=== PATIENT | male | born 1995 | race Caucasian/White ===

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

== ENCOUNTER 2018-07-27 16:00 | Inpatient (IN) | payer MEDICAID ==
[2018-07-27] MEDS ORDERED: NORMAL SALINE 1000 ML 1,000 ML IV ONE ×2 (16:26→18:12)
[2018-07-27] MEDS ORDERED: ACETAMINOPHEN 325 MG TABLET PO ONE (16:26)
--- NOTE | 2018-07-27 16:27 | ER Document Report ---
ED Medical Screen (RME) - General Chief Complaint: Painful Cough Stated Complaint: COUGH,CONGESTION Time Seen by Provider: 07/27/18 16:25 Mode of Arrival: Wheelchair Information source: Patient TRAVEL OUTSIDE OF THE [place] IN LAST 30 DAYS: No - HPI Patient complains to provider of: Fever, cough, congestion Notes: 07/27/18 16:26 Patient is a 22-year-old male presenting to the emergency room for 2-week history of cough which is productive of blood, fever, generalized weakness and shortness of breath, he admits to daily IV heroin abuse having used approximately 5 hours prior to coming to the ED, he was also recently incarcerated and was released approximately 14 days ago, states he was sick while he was in group home but recalls no medical treatment during his time there - Related Data Allergies/Adverse Reactions: No Known Allergies Allergy (Verified 07/06/16 18:49) Physical Exam - Vital signs Vitals: Temp Pulse Resp BP Pulse Ox 102.2 F H 147 H 28 H 84/49 L 98 07/27/18 16:19 07/27/18 16:19 07/27/18 16:19 07/27/18 16:19 07/27/18 16:19 Course - Vital Signs Vital signs: Temp Pulse Resp BP Pulse Ox 102.2 F H 147 H 28 H 84/49 L 98 07/27/18 16:19 07/27/18 16:19 07/27/18 16:19 07/27/18 16:19 07/27/18 16:19
[2018-07-27 16:48] LABS: VENOUS BLOOD BASE EXCESS 3.9 mmol/L; VENOUS BLOOD HCO3 28.7 mmol/L (20-32); VENOUS BLOOD PCO2 44.3 mmHg (35-63); VENOUS BLOOD PH 7.43 (7.30-7.42)
[2018-07-27 16:49] LABS: ABSOLUTE BASOPHILS # (AUTO) 0.1 10^3/uL (0.0-0.2); ABSOLUTE LYMPHOCYTES (AUTO) 1.1 10^3/uL (0.5-4.7); ABSOLUTE MONOCYTES (AUTO) 0.8 10^3/uL (0.1-1.4); ABSOLUTE NEUT (AUTO) 13.9 10^3/uL (1.7-8.2); BASOPHILS % (AUTO) 0.5 % (0-2); EOSINOPHILS % (AUTO) 0.3 % (0-6); HEMATOCRIT 37.1 % (37.9-51.0); HEMOGLOBIN 12.8 g/dL (13.5-17.0); LYMPHOCYTES % (AUTO) 6.8 % (13-45); MEAN CORPUSCULAR HEMOGLOBIN 29.6 pg (27.0-33.4); MEAN CORPUSCULAR HGB CONC 34.5 g/dL (32.0-36.0); MEAN CORPUSCULAR VOLUME 86 fl (80-97); MONOCYTES % (AUTO) 5.2 % (3-13); PLATELET COUNT 168 10^3/uL (150-450); RED BLOOD COUNT 4.33 10^6/uL (4.35-5.55); RED CELL DISTRIBUTION WIDTH 15.8 % (11.5-14.0); SEGMENTED NEUTROPHILS % (AUTO) 87.2 % (42-78); TOTAL CELLS COUNTED % (AUTO) 100 %; WHITE BLOOD COUNT 15.9 10^3/uL (4.0-10.5)
[2018-07-27 17:00] LABS: INTERNATIONAL RATION (INR) 1.07; PROTHROMBIN TIME 14.5 SEC (11.4-15.4)
[2018-07-27 17:10] LABS: ALANINE AMINOTRANSFERASE 15 U/L (21-72); ALBUMIN 3.2 g/dL (3.5-5.0); ALKALINE PHOSPHATASE 114 U/L (38-126); ANION GAP 16 (5-19); ASPARTATE AMINO TRANSFERASE 32 U/L (17-59); BILIRUBIN,DIRECT 0.5 mg/dL (0.0-0.4); BILIRUBIN,TOTAL 0.7 mg/dL (0.2-1.3); BLOOD UREA NITROGEN 57 mg/dL (7-20); CALCIUM 8.3 mg/dL (8.4-10.2); CARBON DIOXIDE 29 mmol/L (22-30); CHLORIDE 86 mmol/L (98-107); GLUCOSE 134 mg/dL (75-110); POTASSIUM 3.9 mmol/L (3.6-5.0); SODIUM 131.1 mmol/L (137-145); TOTAL PROTEIN 6.8 g/dL (6.3-8.2)
--- NOTE | 2018-07-27 17:31 | ER Document Report ---
ED Respiratory Problem - General Chief Complaint: Painful Cough Stated Complaint: COUGH,CONGESTION Time Seen by Provider: 07/27/18 16:25 Mode of Arrival: Wheelchair Notes: This is a 22-year-old male to the emergency department chief complaint of shortness of breath cough chest pain. Patient reportedly incarcerated recently for approximately 11 days. IV drug abuser. Most recent injection was approximately 7 hours ago with heroin. Complaining of shortness of breath and chest pain. No recent trauma. Increasing cough today. TRAVEL OUTSIDE OF THE [place] IN LAST 30 DAYS: No - HPI Patient complains to provider of: Chest pain, Cough, Short of breath Onset: Last week Duration: Continuous, Worse/persistent Severity: Severe Pain Level: 4 Context: Smoker Short of Breath: Moderate Chest pain/discomfort: Center, Constant Cough: Nonproductive Associated symptoms: Fever - Related Data Allergies/Adverse Reactions: No Known Allergies Allergy (Verified 07/06/16 18:49) Past Medical History - General Information source: Patient - Social History Smoking Status: Unknown if Ever Smoked Chew tobacco use (# tins/day): No Frequency of alcohol use: None Drug Abuse: None Family History: None Patient has suicidal ideation: No Patient has homicidal ideation: No Renal/ Medical History: Denies: Hx Peritoneal Dialysis Review of Systems - Review of Systems Constitutional: Fever. denies: Malaise, Weakness EENT: denies: Ear pain, Throat pain, Difficulty swallowing Cardiovascular: Chest pain, Palpitations, Heart racing Respiratory: Cough, Short of breath, Wheezing Gastrointestinal: denies: Abdominal pain, Nausea, Vomiting Genitourinary: denies: Flank pain, Hematuria, Incontinence Musculoskeletal: denies: Back pain, Joint pain, Muscle pain Skin: denies: Dryness, Lesions, Rash Hematologic/Lymphatic: denies: Blood clots, Easy bleeding, Easy bruising Neurological/Psychological: denies: Confusion, Weakness, Numbness Physical Exam - Vital signs Vitals: Temp Pulse Resp BP Pulse Ox 102.2 F H 147 H 28 H 84/49 L 98 07/27/18 16:19 07/27/18 16:19 07/27/18 16:19 07/27/18 16:19 07/27/18 16:19 Interpretation: Hypotensive, Tachycardic, Tachypneic, Febrile - General General appearance: Alert. No: Appears well - Ill-appearing In distress: Moderate - HEENT Head: Normocephalic, Atraumatic Eyes: Normal Pupils: PERRL - Respiratory Respiratory status: Tachypnea Chest status: Nontender Breath sounds: Wheezing Chest palpation: Normal - Cardiovascular Rhythm: Tachycardia Heart sounds: Normal auscultation Murmur: No - Abdominal Inspection: Normal Distension: No distension Bowel sounds: Normal Tenderness: Nontender Organomegaly: No organomegaly - Back Back: Normal, Nontender - Extremities General upper extremity: Normal inspection, Nontender, Normal color, Normal ROM, Normal temperature General lower extremity: Normal inspection, Nontender, Normal color, Normal ROM, Normal temperature, Normal weight bearing. No: Radha's sign - Neurological Neuro grossly intact: Yes Cognition: Normal Orientation: AAOx4 Bashir Coma Scale Eye Opening: Spontaneous Bashir Coma Scale Verbal: Oriented [place] Coma Scale Motor: Obeys Commands Holdrege Coma Scale Total: 15 Speech: Normal Motor strength normal: LUE, RUE, LLE, RLE Sensory: Normal - Psychological Associated symptoms: Normal affect, Normal mood - Skin Skin Temperature: Warm Skin Moisture: Dry Skin Color: Normal Course - Re-evaluation Re-evalutation: 07/27/18 17:48 Relatively ill-appearing 22-year-old male, history of substance abuse and IV drug abuse. Tachycardic, hypotensive and tachypneic. Will start him on breathing treatments, oxygen. Will treat empirically for possible pneumonia. W aiting on chest x-ray at this time. Cultures taken. Lactic taken. - Vital Signs Vital signs: Temp Pulse Resp BP Pulse Ox 98.8 F 147 H 26 H 87/42 L 98 07/27/18 18:54 07/27/18 16:19 07/27/18 19:30 07/27/18 19:30 07/27/18 19:30 - Laboratory Result Diagrams: 07/27/18 16:35 07/27/18 16:35 Laboratory results interpreted by me: 07/27/18 07/27/18 07/27/18 16:35 16:35 16:35 WBC 15.9 H RBC 4.33 L Hgb 12.8 L Hct 37.1 L RDW 15.8 H Seg Neutrophils % 87.2 H Lymphocytes % 6.8 L Absolute Neutrophils 13.9 H VBG pH Sodium 131.1 L Chloride 86 L BUN 57 H Creatinine 2.71 H Est GFR ( Amer) 36 L Est GFR (Non-Af Amer) 30 L Glucose 134 H Lactic Acid 2.4 H Calcium 8.3 L Direct Bilirubin 0.5 H ALT 15 L Albumin 3.2 L Urine Protein Urine Blood Urine Urobilinogen Ur Leukocyte Esterase 07/27/18 07/27/18 16:35 17:55 WBC RBC Hgb Hct RDW Seg Neutrophils % Lymphocytes % Absolute Neutrophils VBG pH 7.43 H Sodium Chloride BUN Creatinine Est GFR ( Amer) Est GFR (Non-Af Amer) Glucose Lactic Acid Calcium Direct Bilirubin ALT Albumin Urine Protein 30 H Urine Blood MODERATE H Urine Urobilinogen 4.0 H Ur Leukocyte Esterase TRACE H - EKG Interpretation by In EKG shows normal: [place], Intervals, QRS Complexes, ST-T Waves Rate: Tachycardia Procedures - Central Line Right Internal jugular Consent obtained: Yes Central line pre-insertion: Sterile PPE donned, Betadine prep applied, Chloraprep applied, Sterile drapes applied Central line lumen type: Triple Anesthetic type: 1% Lidocaine mL's of anesthesia: 1 Ultrasound guided: Yes Line secured with sutures: Yes Central line post-insertion: Blood return from lumens, Biopatch applied, Sutured, Sterile dressing applied, Position confirmed w/ CXR Number of attempts: 1 Complications: No Critical Care Note - Critical Care Note Total time excluding time spent on procedures (mins): 60 Comments: Hypotension, sepsis, tachycardia Discharge - Discharge Clinical Impression: Sepsis Qualifiers: Sepsis type: sepsis due to unspecified organism Qualified Code(s): A41.9 - Sepsis, unspecified organism Pneumonia Qualifiers: Pneumonia type: due to unspecified organism Laterality: bilateral Lung location: unspecified part of lung Qualified Code(s): J18.9 - Pneumonia, unspecified organism Condition: Fair Disposition: ADMITTED INPATIENT Admitting Provider: Hospitalist [facility] Unit Admitted: ICU
[2018-07-27] MEDS ORDERED: CEFTRIAXONE INJ 1000 MG VIAL IV ONE (17:43)
[2018-07-27] MEDS ORDERED: VANCOMYCIN HCL INJ 1000 MG VIAL IV ONE (17:43)
[2018-07-27] MEDS ORDERED: ALBUTEROL SULFATE 0.083% NEB 2.5 MG/3 ML AMPUL NEB ONE (17:47)
[2018-07-27 18:32] LABS: AMORPHOUS SEDIMENT,URINE TRACE /HPF; APPEARANCE,URINE CLOUDY; BILIRUBIN,URINE NEGATIVE (NEGATIVE); COLOR,URINE AMBER; GLUCOSE, URINE NEGATIVE (NEGATIVE); KETONES,URINE NEGATIVE (NEGATIVE); LEUKOCYTE ESTERASE,URINE TRACE (NEGATIVE); NITRITE,URINE NEGATIVE (NEGATIVE); PROTEIN,URINE 30 mg/dL (NEGATIVE); URINE SPECIFIC GRAVITY 1.018
--- NOTE | 2018-07-27 18:33 | RADIOLOGY REPORT (SQ) ---
EXAM DESCRIPTION: CHEST SINGLE VIEW COMPLETED DATE/TIME: 07/27/2018 5:52 pm REASON FOR STUDY: COUGH COMPARISON: 07/06/2016 EXAM PARAMETERS: NUMBER OF VIEWS: One view. TECHNIQUE: Single frontal radiographic view of the chest acquired. RADIATION DOSE: NA LIMITATIONS: None. FINDINGS: LUNGS AND PLEURA: Extensive pleural and parenchymal opacities on the right with a right la teral effusion. Extensive parenchymal opacities on the left. No pneumothorax. MEDIASTINUM AND HILAR STRUCTURES: No masses. Contour normal. HEART AND VASCULAR STRUCTURES: Heart normal in size. Normal vasculature. BONES: No acute findings. HARDWARE: None in the chest. OTHER: No other significant finding. IMPRESSION: Extensive pneumonia and right pleural effusion. TECHNICAL DOCUMENTATION: JOB ID: [id number] [employer]- All Rights Reserved Reading location - IP/workstation name: [email or web address]
[2018-07-27 18:40] LABS: CREATINE KINASE MB 1.66 ng/mL (<4.55)
[2018-07-27 18:41] LABS: TROPONIN I < 0.012 ng/mL
[2018-07-27] MEDS ORDERED: IPRATROPIUM/ALBUTEROL 0.5-2.5 MG/3 ML AMPUL NEB PRN (19:51)
[2018-07-27] MEDS ORDERED: DEXTROSE 5%-WATER 250 ML with NOREPINEPHRINE BITARTRATE 4 MG IV PRN ×2 (19:57)
[2018-07-27] MEDS ORDERED: VANCOMYCIN HCL 0 MG in DEXTROSE 5%-WATER 250 ML IV NR (20:00)
[2018-07-27] MEDS: IPRATROPIUM/ALBUTEROL 0.5-2.5 MG/3 ML AMPUL NEB SCH (21:00)
--- NOTE | 2018-07-27 21:20 | RADIOLOGY REPORT (SQ) ---
XR CHEST 3 VIEWS HISTORY: Right-sided pleural effusion. COMPARISON: Radiographs from earlier the same day. FINDINGS: There is a new right IJ line with the tip near the cavoatrial junction. No discernible pneumothorax. There is unchanged appearance of bilateral airspace opacities and small right pleural effusion. The heart size is normal. No acute osseous findings are seen. IMPRESSION: 1. New right IJ line with tip near cavoatrial junction. No pneumothorax. 2. Unchanged small right pleural effusion and bilateral airspace opacities.
[2018-07-27] MEDS: CEFEPIME 2 GM/D5W RTU 2 GM/50 ML RTUPB IV SCH (21:36)
[2018-07-27] MEDS: HEPARIN SOD (PORCINE) 5,000 UNIT/ML 1 ML SYRINGE SUBCUT SCH (21:37)
[2018-07-27] MEDS: NORMAL SALINE 1000 ML 1,000 ML IV PRN (21:39)
[2018-07-27 22:26] LABS: URINE BARBITURATES SCREEN NEGATIVE; URINE BENZODIAZEPINES SCREEN NEGATIVE; URINE COCAINE SCREEN NEGATIVE; URINE MARIJUANA (THC) SCREEN NEGATIVE; URINE METHADONE SCREEN NEGATIVE; URINE PHENCYCLIDINE SCREEN NEGATIVE
[2018-07-27] MEDS ORDERED: QUETIAPINE FUMARATE 100 MG TABLET PO ONE (23:59)
[2018-07-28] MEDS: ACETAMINOPHEN 325 MG TABLET PO PRN ×3 (00:10→19:47)
[2018-07-28] MEDS: NORMAL SALINE 1000 ML 1,000 ML IV PRN ×2 (00:30→02:47)
[2018-07-28] MEDS: IPRATROPIUM/ALBUTEROL 0.5-2.5 MG/3 ML AMPUL NEB SCH ×5 (02:14→19:30)
--- NOTE | 2018-07-28 05:58 | PDOC H&P ---
History of Present Illness Admission Date/PCP: 07/27/18 19:39 Patient complains of: Cough History of Present Illness: [place] is a 22 year old male with a past medical history of depression, IV drug abuse with methamphetamine and heroin who presents the emergency room with shortness of breath and cough. He is found to have hypotension, tachypnea, bilateral pneumonia, acute renal failure and hyponatremia. He started on IV saline, empiric antibiotics and referred to the hospitalist for admission. He complains of sharp right-sided chest pain with deep inhalation and coughing which is nonproductive. Patient appears chronically ill and pale, admits his last use 7 hours prior to presentation and has needle tracking without open ulcer or phlebitis on his right arm. Patient is unaware of HIV, hepatitis status. Patient formerly prescribed Seroquel for depression. Past Medical History Cardiac Medical History: Reports: None Pulmonary Medical History: Reports: None EENT Medical History: Reports: None Neurological Medical History: Reports: None Endocrine Medical History: Reports: None Renal/ Medical History: Reports: None Malignancy Medical History: Reports: None GI Medical History: Reports: None Musculoskeltal Medical History: Reports: None Skin Medical History: Reports: None Psychiatric Medical History: Reports: Depression, Substance Abuse Past Surgical History Past Surgical History: Reports: None Social History Information Source: Patient Smoking Status: Never Smoker Frequency of Alcohol Use: None Hx Recreational Drug Use: Yes Drugs: Heroin - Advance Directive Resuscitation Status: Full Code Family History Family History: Hypertension Parental Family History Reviewed: Yes Children Family History Reviewed: Yes Sibling(s) Family History Reviewed.: Yes Medication/Allergy Home Medications: No Home Medications 07/27/18 Allergies/Adverse Reactions: No Known Allergies Allergy (Verified 07/06/16 18:49) Review of Systems Constitutional: PRESENT: as per HPI, fatigue, weakness Eyes: PRESENT: as per HPI Ears: PRESENT: as per HPI Nose, Mouth, and Throat: PRESENT: as per HPI Cardiovascular: PRESENT: as per HPI, chest pain Respiratory: PRESENT: as per HPI, cough, dyspnea. ABSENT: hemoptysis, sputum Gastrointestinal: ABSENT: abdominal pain, constipation, diarrhea, hematemesis, hematochezia, nausea, vomiting Genitourinary: ABSENT: dysuria, hematuria Musculoskeletal: ABSENT: joint swelling Integumentary: ABSENT: rash, wounds Neurological: ABSENT: abnormal gait, abnormal speech, confusion, dizziness, focal weakness, syncope Psychiatric: ABSENT: anxiety, depression, homidical ideation, suicidal ideation Endocrine: ABSENT: cold intolerance, heat intolerance, polydipsia, polyuria Hematologic/Lymphatic: ABSENT: easy bleeding, easy bruising Physical Exam Vital Signs: Temp Pulse Resp BP Pulse Ox 98.0 F 100 36 H 89/45 L 97 07/28/18 00:00 07/28/18 02:15 07/28/18 04:03 07/28/18 04:03 07/28/18 04:03 Intake & Output 07/26/18 07/27/18 07/28/18 11:59 11:59 11:59 Intake Total 3000 Output Total 400 Balance 2600 Weight 50.9 kg General appearance: PRESENT: cooperative, disheveled, severe distress, thin Head exam: PRESENT: atraumatic, normocephalic Eye exam: PRESENT: conjunctiva pink, EOMI, PERRLA. ABSENT: scleral icterus Ear exam: PRESENT: normal external ear exam Mouth exam: PRESENT: moist, tongue midline Neck exam: ABSENT: carotid bruit, JVD, lymphadenopathy, thyromegaly Respiratory exam: PRESENT: accessory muscle use, prolonged expiratory phas, retraction, rhonchi, tachypnea Cardiovascular exam: PRESENT: RRR, systolic murmur, tachycardia. ABSENT: diastolic murmur, rubs Pulses: PRESENT: normal dorsalis pedis pul Vascular exam: PRESENT: normal capillary refill GI/Abdominal exam: PRESENT: normal bowel sounds, soft. ABSENT: distended, guarding, mass, organolmegaly, rebound, tenderness Rectal exam: PRESENT: deferred Extremities exam: PRESENT: full ROM, other - Right upper extremity with extensive track marking without open ulcer erythema or exudate. ABSENT: calf tenderness, clubbing, pedal edema Neurological exam: PRESENT: alert, altered, awake, oriented to person, oriented to place, oriented to time, oriented to situation, CN II-XII grossly intact. ABSENT: motor sensory deficit Psychiatric exam: PRESENT: appropriate affect, normal mood, unusual affect. ABSENT: homicidal ideation, suicidal ideation Skin exam: PRESENT: dry, intact, warm. ABSENT: cyanosis, rash Results Laboratory Results: 07/27/18 16:35 07/27/18 16:35 07/27/18 07/27/18 07/27/18 16:35 16:35 16:35 WBC 15.9 H RBC 4.33 L Hgb 12.8 L Hct 37.1 L MCV 86 MCH 29.6 MCHC 34.5 RDW 15.8 H Plt Count 168 Seg Neutrophils % 87.2 H Lymphocytes % 6.8 L Monocytes % 5.2 Eosinophils % 0.3 Basophils % 0.5 Absolute Neutrophils 13.9 H Absolute Lymphocytes 1.1 Absolute Monocytes 0.8 Absolute Eosinophils 0.0 Absolute Basophils 0.1 VBG pH VBG pCO2 VBG HCO3 VBG Base Excess Sodium 131.1 L Potassium 3.9 Chloride 86 L Carbon Dioxide 29 Anion Gap 16 BUN 57 H Creatinine 2.71 H Est GFR ( Amer) 36 L Est GFR (Non-Af Amer) 30 L Glucose 134 H Lactic Acid 2.4 H Calcium 8.3 L Total Bilirubin 0.7 AST 32 ALT 15 L Alkaline Phosphatase 114 Total Protein 6.8 Albumin 3.2 L Urine Color Urine Appearance Urine pH Ur Specific Dale Urine Protein Urine Glucose (UA) Urine Ketones Urine Blood Urine Nitrite Ur Leukocyte Esterase Urine WBC (Auto) Urine RBC (Auto) 07/27/18 07/27/18 07/27/18 16:35 17:55 21:30 WBC RBC Hgb Hct MCV MCH MCHC RDW Plt Count Seg Neutrophils % Lymphocytes % Monocytes % Eosinophils % Basophils % Absolute Neutrophils Absolute Lymphocytes Absolute Monocytes Absolute Eosinophils Absolute Basophils VBG pH 7.43 H VBG pCO2 44.3 VBG HCO3 28.7 VBG Base Excess 3.9 Sodium Potassium Chloride Carbon Dioxide Anion Gap BUN Creatinine Est GFR ( Amer) Est GFR (Non-Af Amer) Glucose Lactic Acid 0.6 L Calcium Total Bilirubin AST ALT Alkaline Phosphatase Total Protein Albumin Urine Color HARISH Urine Appearance CLOUDY Urine pH 5.0 Ur Specific Dale 1.018 Urine Protein 30 H Urine Glucose (UA) NEGATIVE Urine Ketones NEGATIVE Urine Blood MODERATE H Urine Nitrite NEGATIVE Ur Leukocyte Esterase TRACE H Urine WBC (Auto) 33 Urine RBC (Auto) 22 07/27/18 07/27/18 16:35 16:35 Creatine Kinase 122 CK-MB (CK-2) 1.66 Troponin I < 0.012 Impressions: Apical Lordotic X-Ray 07/27/18 00:00 IMPRESSION: 1. New right IJ line with tip near cavoatrial junction. No pneumothorax. 2. Unchanged small right pleural effusion and bilateral airspace opacities. Chest X-Ray 07/27/18 16:26 IMPRESSION: Extensive pneumonia and right pleural effusion. Assessment & Plan - Diagnosis (1) Pneumonia Qualifiers: Pneumonia type: due to unspecified organism Laterality: bilateral Lung location: unspecified part of lung Qualified Code(s): J18.9 - Pneumonia, unspecified organism Is this a current diagnosis for this admission?: Yes Plan: Complicated by IV drug abuse and concern for septic emboli. Albuterol, Atrovent, incentive spirometry, IV vancomycin and cefepime ordered. Follow-up CBC and blood culture (2) Sepsis Qualifiers: Sepsis type: sepsis due to unspecified organism Qualified Code(s): A41.9 - Sepsis, unspecified organism Is this a current diagnosis for this admission?: Yes Plan: Secondary to #1, IV fluid challenge, pressors as needed, consider Narcan (3) IV drug abuse Is this a current diagnosis for this admission?: Yes Plan: Methamphetamine and heroin use, supportive care, consider methadone (4) Murmur Is this a current diagnosis for this admission?: Yes Plan: Follow-up 2D echo and evaluation of possible endocarditis. - Time Time Spent: 50 to 70 Minutes - Inpatient Certification Medical Necessity: Need Close Monitoring Due to Risk of Patient Decompensation
[2018-07-28] MEDS: HEPARIN SOD (PORCINE) 5,000 UNIT/ML 1 ML SYRINGE SUBCUT SCH ×3 (06:38→21:11)
[2018-07-28 06:56] LABS: ANION GAP 10 (5-19); BLOOD UREA NITROGEN 42 mg/dL (7-20); CARBON DIOXIDE 20 mmol/L (22-30); CHLORIDE 104 mmol/L (98-107); GLUCOSE 123 mg/dL (75-110); POTASSIUM 3.8 mmol/L (3.6-5.0); SODIUM 134.2 mmol/L (137-145)
[2018-07-28 07:10] LABS: ABSOLUTE LYMPHOCYTES (AUTO) 1.7 10^3/uL (0.5-4.7); ABSOLUTE MONOCYTES (AUTO) 0.6 10^3/uL (0.1-1.4); ABSOLUTE NEUT (AUTO) 11.3 10^3/uL (1.7-8.2); BASOPHILS % (AUTO) 0.2 % (0-2); EOSINOPHILS % (AUTO) 0.3 % (0-6); HEMATOCRIT 30.3 % (37.9-51.0); LYMPHOCYTES % (AUTO) 12.4 % (13-45); MEAN CORPUSCULAR HEMOGLOBIN 29.5 pg (27.0-33.4); MEAN CORPUSCULAR VOLUME 87 fl (80-97); MONOCYTES % (AUTO) 4.3 % (3-13); PLATELET COUNT 108 10^3/uL (150-450); RED CELL DISTRIBUTION WIDTH 15.6 % (11.5-14.0); SEGMENTED NEUTROPHILS % (AUTO) 82.8 % (42-78); TOTAL CELLS COUNTED % (AUTO) 100 %; WHITE BLOOD COUNT 13.6 10^3/uL (4.0-10.5)
[2018-07-28 07:11] LABS: CALCIUM 6.9 mg/dL (8.4-10.2)
[2018-07-28 07:13] LABS: HEMOGLOBIN 10.3 g/dL (13.5-17.0)
--- NOTE | 2018-07-28 07:55 | EKG REPORT ---
SEVERITY:- OTHERWISE NORMAL ECG - SINUS TACHYCARDIA BORDERLINE RIGHT AXIS DEVIATION : Confirmed by: Lino Chambers MD 28-Jul-2018 07:54:15
[2018-07-28] MEDS ORDERED: NORMAL SALINE 1000 ML 2,000 ML IV ONE (08:30)
[2018-07-28] MEDS ORDERED: CALCIUM GLUCONATE 1000 MG/10 ML INJ IV ONE (09:00)
[2018-07-28] MEDS: CEFEPIME 2 GM/D5W RTU 2 GM/50 ML RTUPB IV SCH ×2 (09:00→21:12)
[2018-07-28] MEDS ORDERED: ACETAMINOPHEN 325 MG TABLET PO ONE (09:45)
[2018-07-28] MEDS ORDERED: OXYCODONE-ACETAMINOPHEN 5-325 MG TABLET PO PRN (09:48)
[2018-07-28] MEDS: VANCOMYCIN HCL 750 MG in DEXTROSE 5%-WATER 250 ML IV SCH ×2 (10:26→21:33)
[2018-07-28] MEDS: NORMAL SALINE 1000 ML 1,000 ML with POTASSIUM CHLORIDE 20 MEQ, MAGNESIUM SULFATE 8 MEQ,... IV SCH ×5 (17:32)
--- NOTE | 2018-07-28 17:52 | PDOC PROGRESS REPORT ---
Subjective Progress Note for:: 07/28/18 Subjective:: LISS BEACH is a 22 year old male with a past medical history of depression, IV drug abuse with methamphetamine and heroin who presents the emergency room with shortness of breath and cough. He is found to have hypotension, tachypnea, bilateral pneumonia, acute renal failure and hyponatremia. Was started on IV saline, empiric antibiotics and referred to the hospitalist for admission. On admission he complained of sharp right-sided chest pain with deep inhalation and coughing which is nonproductive. Patient appears chronically ill and pale, admits his last use 7 hours prior to presentation and has needle tracking without open ulcer or phlebitis on his right arm. Patient is unaware of HIV, hepatitis status. Patient formerly prescribed Seroquel for depression. Patient is still complaining of shortness of breath, generalized weakness, right-sided pleuritic chest pain. He has been normotensive but tachycardic and tachypneic saturating 100% on room air. Prelim blood cultures positive for gram-positive cocci in clusters, pending sensitivity. Currently he is on vancomycin and cefepime day 2. White blood cells 13.6 down from 15.9, lactic acid 6. Lactic acid 0.6, calcium 6.9. Reason For Visit: SEPSIS, IV DRUGS C PNEUMONIA Physical Exam Vital Signs: Temp Pulse Resp BP Pulse Ox 98.5 F 108 H 25 H 111/79 100 07/28/18 16:00 07/28/18 16:00 07/28/18 16:00 07/28/18 16:00 07/28/18 16:00 Intake & Output 07/27/18 07/28/18 07/29/18 06:59 06:59 06:59 Intake Total 3000 4350 Output Total 800 850 Balance 2200 3500 Weight 50.9 kg General appearance: PRESENT: mild distress Head exam: PRESENT: atraumatic, normocephalic Respiratory exam: PRESENT: clear to auscultation neela. ABSENT: rales, rhonchi, wheezes Cardiovascular exam: PRESENT: RRR, tachycardia. ABSENT: diastolic murmur, rubs, systolic murmur GI/Abdominal exam: PRESENT: normal bowel sounds, soft. ABSENT: distended, gua rding, mass, organolmegaly, rebound, tenderness Neurological exam: PRESENT: alert, awake, oriented to person, oriented to place, oriented to time, oriented to situation, CN II-XII grossly intact. ABSENT: motor sensory deficit Skin exam: PRESENT: dry, intact, warm. ABSENT: cyanosis, rash Results Laboratory Results: 07/28/18 06:33 07/28/18 06:33 07/27/18 07/27/18 07/28/18 17:55 21:30 06:33 WBC RBC Hgb Hct MCV MCH MCHC RDW Plt Count Seg Neutrophils % Lymphocytes % Monocytes % Eosinophils % Basophils % Absolute Neutrophils Absolute Lymphocytes Absolute Monocytes Absolute Eosinophils Absolute Basophils Sodium 134.2 L Potassium 3.8 Chloride 104 Carbon Dioxide 20 L Anion Gap 10 BUN 42 H Creatinine 1.18 Est GFR ( Amer) > 60 Est GFR (Non-Af Amer) > 60 Glucose 123 H Lactic Acid 0.6 L Calcium 6.9 L* Albumin Urine Color HARISH Urine Appearance CLOUDY Urine pH 5.0 Ur Specific Minto 1.018 Urine Protein 30 H Urine Glucose (UA) NEGATIVE Urine Ketones NEGATIVE Urine Blood MODERATE H Urine Nitrite NEGATIVE Ur Leukocyte Esterase TRACE H Urine WBC (Auto) 33 Urine RBC (Auto) 22 07/28/18 07/28/18 06:33 06:33 WBC 13.6 H RBC 3.50 L Hgb 10.3 L D Hct 30.3 L MCV 87 MCH 29.5 MCHC 34.0 RDW 15.6 H Plt Count 108 L Seg Neutrophils % 82.8 H Lymphocytes % 12.4 L Monocytes % 4.3 Eosinophils % 0.3 Basophils % 0.2 Absolute Neutrophils 11.3 H Absolute Lymphocytes 1.7 Absolute Monocytes 0.6 Absolute Eosinophils 0.0 Absolute Basophils 0.0 Sodium Potassium Chloride Carbon Dioxide Anion Gap BUN Creatinine Est GFR ( Amer) Est GFR (Non-Af Amer) Glucose Lactic Acid Calcium Albumin 2.0 L Urine Color Urine Appearance Urine pH Ur Specific Minto Urine Protein Urine Glucose (UA) Urine Ketones Urine Blood Urine Nitrite Ur Leukocyte Esterase Urine WBC (Auto) Urine RBC (Auto) 07/27/18 07/27/18 16:35 16:35 Creatine Kinase 122 CK-MB (CK-2) 1.66 Troponin I < 0.012 Impressions: Apical Lordotic X-Ray 07/27/18 00:00 IMPRESSION: 1. New right IJ line with tip near cavoatrial junction. No pneumothorax. 2. Unchanged small right pleural effusion and bilateral airspace opacities. Chest X-Ray 07/27/18 16:26 IMPRESSION: Extensive pneumonia and right pleural effusion. Assessment & Plan - Diagnosis (1) Sepsis Qualifiers: Sepsis type: sepsis due to unspecified organism Qualified Code(s): A41.9 - Sepsis, unspecified organism Is this a current diagnosis for this admission?: Yes Plan: Likely due to underlying infectious process. Continue empiric IV antibiotics. Continue IV fluids monitor volume status and vitals. (2) Gram-positive bacteremia Is this a current diagnosis for this admission?: Yes Plan: Likely caused by continuous IV drug abuse. Prelim blood cultures 2/2 are growing gram-positive cocci. Continue IV empiric antibiotics. Pending 2D echo to rule out endocarditis. Follow-up blood cultures. (3) Pneumonia Qualifiers: Pneumonia type: due to unspecified organism Laterality: bilateral Lung location: unspecified part of lung Qualified Code(s): J18.9 - Pneumonia, unspecified organism Is this a current diagnosis for this admission?: Yes Plan: Likely complicated by continuous IV drug abuse. Continue IV antibiotics. Follow-up cultures. (4) Hypocalcemia Is this a current diagnosis for this admission?: Yes Plan: Replaced. CMP tomorrow. (5) IV drug abuse Is this a current diagnosis for this admission?: Yes Plan: Supportive measures. Monitor for withdrawals. Will consider starting methadone.
[2018-07-28] MEDS ORDERED: VANCOMYCIN HCL 750 MG in DEXTROSE 5%-WATER 250 ML IV SCH (18:00)
--- NOTE | 2018-07-28 18:04 | Progress Note ---
Provider Note Provider Note: ID Consult Note Asked to review patient's chart by Pharmacy. Pt not seen or examined. Mr Finch is a 22 year old man with IV drug use who was admitted to [facility] today 07/28/18 with a 2 week history of nonproductive cough associated with pleuritic chest pain, fever, SOB and genearlized weakness. In the ED he was appreciated to be tachycardic, hypotensive, tachypneic, and febrile to 102 F. On exam, he was noted to be thin, disheveled, in distress, with accessory muscle use and rhonchi on lung exam, systolic murmur, track mascorro on RUE without open ulcers, erythema or exudates. Labs included WBC 15.9, SCr 2.7, elevated BUN, low chloride, low sodium, elevated lactic acid. Blood cultures show growth of GPCs from two separate sites at two different times. He has a single view CXR that was read as showing pulmonary parenchymal opacities and a right lateral effusion. TTE was ordered. Impression/Recommendations Septic shock, bacteremia with Gram positive cocci, possible endocarditis with septic pulmonary emboli - Pt appears to have a high grade bacteremia, as GPCs are preliminarily reported from both sets of blood cultures, described as being in clusters in one set, which suggests a Staph species. In combination with the fever, systolic murmur, and active IVDU, the presentation is concerning for endocarditis and septic emboli, potentially as the reason for the CXR infiltrate. - Currently, awaiting TTE report - Consider CT scan of chest for better definition of pulmonary lesions; if b/l peripherally distributed nodules this would fit the appearance of septic pulmonary emboli in this setting - Until GPCs are identified, agree, vancomycin empirically - Considering the preliminary nature of blood culture results, continuing cefepime for now is reasonable, but if no GNRs are identified in a day or two, it should be discontinued - Suggest repeating blood cultures in about 48h Jaime Herrera MD [facility] Infectious Diseases pager [phone]
[2018-07-28] MEDS ORDERED: LEVALBUTEROL HCL NEB 1.25 MG/3 ML AMPUL NEB SCH (20:00)
[2018-07-28] MEDS: LEVALBUTEROL HCL NEB 1.25 MG/3 ML AMPUL NEB SCH (20:47)
[2018-07-28] MEDS: QUETIAPINE FUMARATE 100 MG TABLET PO SCH (21:12)
[2018-07-28] MEDS: LORAZEPAM INJ 2 MG/1 ML VIAL IV PRN (21:12)
--- NOTE | 2018-07-28 22:50 | XCELERA REPORT ---
[address] [address] Transthoracic Echocardiogram Report Name: LISS BEACH Age: 22 yrs Gender: Male : 1995 Patient Status: Inpatient Patient Location: ICU^611^A Study Date: 07/28/2018 02:53 PM Height: 61 in Weight: 107 lb BSA: 1.4 m2 Procedure: A two-dimensional transthoracic echocardiogram with color flow and Doppler was performed. Study Quality: Good. Reason For Study: iv drug user w murmur History: IV DRUG ABUSE / MURMUR / ENDOCARDITIS. Ordering Physician: ARTURO NEGRO Performed By: Theresa Rivera Interpretation Summary The left ventricle is normal in size. There is normal left ventricular wall thickness. LV EF is 60% The left ventricular ejection fraction is preserved. Doppler measurements suggest normal left ventricular diastolic function The left ventricular wall motion is normal. There is no thrombus. There is no ventricular septal defect visualized. The right ventricle is normal in size and function. The right atrium is normal. The left atrial size is normal. The interatrial septum is intact with no evidence for an atrial septal defect. There is no Doppler evidence for an interatrial shunt There is no evidence of mitral valve prolapse. There is no vegetation seen on the mitral valve. There is no mitral valve stenosis. There is a trace amount of mitral regurgitation There is no aortic valve stenosis There is no LVOT obstruction. No aortic regurgitation is present. There is a large vegetation or mass on the tricuspid valve. tHE VEGETATION IS MOBILE AND MEASURES 6.1 cm IN CIRCUMFERENCE. There is no tricuspid stenosis. There is a moderate to severe amount of tricuspid regurgitation There is mild pulmonary hypertension by echo RVSP is 43 to 48 mm of Hg , with RA mean of 5 to 10. There is no pulmonic valvular stenosis. There is no pulmonic valvular regurgitation. The aortic root is normal size. The inferior vena cava appeared normal and decreased > 50% with respiration (RAP 5-10 mmHg) There is no pericardial effusion. MMode/2D Measurements & Calculations RVDd: 2.4 cm LVIDd: 4.5 cm FS: 33.5 % Ao root diam: 2.7 cm IVSd: 0.66 cm LVIDs: 3.0 cm EDV(Teich): Ao root area: LVPWd: 0.65 cm 91.3 ml 5.6 cm2 ESV(Teich): LA dimension: 2.7 cm 34.4 ml EF(Teich): 62.4 % LVLd ap4: 8.2 cm SV(MOD-sp4): EDV(MOD-sp4): 47.0 ml 76.0 ml LVLs ap4: 6.6 cm ESV(MOD-sp4): 29.0 ml EF(MOD-sp4): 61.8 % Doppler Measurements & Calculations MV E max inga: MV P1/2t max inga: Ao V2 max: LV V1 max P.9 cm/sec 83.4 cm/sec 121.0 cm/sec 2.4 mmHg MV A max inga: MV P1/2t: 64.3 msec Ao max P.9 mmHg LV V1 max: 66.1 cm/sec MVA(P1/2t): 3.4 cm2 77.0 cm/sec MV E/A: 1.3 MV dec slope: 379.8 cm/sec2 MV dec time: 0.23 sec PA V2 max: TR max inga: MV P1/2t-pr_phl: 95.8 cm/sec 305.4 cm/sec 64.3 msec PA max PG: TR max P.3 mmHg 3.7 mmHg Left Ventricle The left ventricle is normal in size. There is normal left ventricular wall thickness. LV EF is 60%. The left ventricular ejection fraction is preserved. Doppler measurements suggest normal left ventricular diastolic function. The left ventricular wall motion is normal. There is no thrombus. There is no ventricular septal defect visualized. Right Ventricle The right ventricle is normal in size and function. Atria The right atrium is normal. The left atrial size is normal. The interatrial septum is intact with no evidence for an atrial septal defect. There is no Doppler evidence for an interatrial shunt. Mitral Valve There is no evidence of mitral valve prolapse. There is no vegetation seen on the mitral valve. There is no mitral valve stenosis. There is a trace amount of mitral regurgitation. Aortic Valve There is no aortic valve stenosis. There is no LVOT obstruction. No aortic regurgitation is present. Tricuspid Valve There is a large vegetation or mass on the tricuspid valve. tHE VEGETATION IS MOBILE AND MEASURES 6.1 cm IN CIRCUMFERENCE. There is no tricuspid stenosis. There is a moderate to severe amount of tricuspid regurgitation. There is mild pulmonary hypertension by echo. RVSP is 43 to 48 mm of Hg , with RA mean of 5 to 10. Pulmonic Valve There is no pulmonic valvular stenosis. There is no pulmonic valvular regurgitation. Great Vessels The aortic root is normal size. The inferior vena cava appeared normal and decreased > 50% with respiration (RAP 5-10 mmHg). Effusions There is no pericardial effusion. : ARTURO NEGRO > Jessica Strickland
[2018-07-29] MEDS: IPRATROPIUM/ALBUTEROL 0.5-2.5 MG/3 ML AMPUL NEB SCH ×2 (01:18→08:50)
[2018-07-29] MEDS: LORAZEPAM INJ 2 MG/1 ML VIAL IV PRN (03:27)
[2018-07-29] MEDS: ACETAMINOPHEN 325 MG TABLET PO PRN ×4 (03:32→23:35)
[2018-07-29] MEDS: NORMAL SALINE 1000 ML 1,000 ML IV PRN ×2 (04:40→13:44)
[2018-07-29 05:33] LABS: ABSOLUTE BASOPHILS # (AUTO) 0.1 10^3/uL (0.0-0.2); ABSOLUTE LYMPHOCYTES (AUTO) 2.2 10^3/uL (0.5-4.7); ABSOLUTE MONOCYTES (AUTO) 1.1 10^3/uL (0.1-1.4); ABSOLUTE NEUT (AUTO) 11.3 10^3/uL (1.7-8.2); BASOPHILS % (AUTO) 0.4 % (0-2); EOSINOPHILS % (AUTO) 0.3 % (0-6); HEMATOCRIT 25.3 % (37.9-51.0); HEMOGLOBIN 8.8 g/dL (13.5-17.0); LYMPHOCYTES % (AUTO) 14.8 % (13-45); MEAN CORPUSCULAR HEMOGLOBIN 29.9 pg (27.0-33.4); MEAN CORPUSCULAR HGB CONC 34.7 g/dL (32.0-36.0); MEAN CORPUSCULAR VOLUME 86 fl (80-97); MONOCYTES % (AUTO) 7.5 % (3-13); PLATELET COUNT 104 10^3/uL (150-450); RED BLOOD COUNT 2.94 10^6/uL (4.35-5.55); RED CELL DISTRIBUTION WIDTH 15.8 % (11.5-14.0); TOTAL CELLS COUNTED % (AUTO) 100 %; WHITE BLOOD COUNT 14.6 10^3/uL (4.0-10.5)
[2018-07-29] MEDS: HEPARIN SOD (PORCINE) 5,000 UNIT/ML 1 ML SYRINGE SUBCUT SCH ×3 (05:44→21:38)
[2018-07-29] MEDS ORDERED: NALOXONE HCL INJ 2 MG/2 ML DISP.SYRIN ONE (05:49)
[2018-07-29 05:58] LABS: ALANINE AMINOTRANSFERASE 17 U/L (21-72); ALBUMIN 1.8 g/dL (3.5-5.0); ALKALINE PHOSPHATASE 77 U/L (38-126); ANION GAP 7 (5-19); ASPARTATE AMINO TRANSFERASE 17 U/L (17-59); BILIRUBIN,DIRECT 0.3 mg/dL (0.0-0.4); BILIRUBIN,TOTAL 0.5 mg/dL (0.2-1.3); CARBON DIOXIDE 20 mmol/L (22-30); CHLORIDE 112 mmol/L (98-107); GLUCOSE 102 mg/dL (75-110); TOTAL PROTEIN 4.5 g/dL (6.3-8.2)
[2018-07-29] MEDS ORDERED: NALOXONE HCL INJ 2 MG/2 ML DISP.SYRIN IV ONE (06:00)
[2018-07-29 06:26] LABS: CALCIUM 7.3 mg/dL (8.4-10.2); POTASSIUM 3.1 mmol/L (3.6-5.0)
[2018-07-29 06:33] LABS: ARTERIAL BLOOD BASE EXCESS -2.6 mmol/L; ARTERIAL BLOOD FIO2 ROOM AIR; ARTERIAL BLOOD H2CO3 0.82 mmol/L (1.05-1.35); ARTERIAL BLOOD HCO3 20.1 mmol/L (20-24); ARTERIAL BLOOD O2 SATURATION 98.6 % (94-98); ARTERIAL BLOOD PCO2 27.1 mmHg (35-45); ARTERIAL BLOOD PH 7.49 (7.35-7.45); ARTERIAL BLOOD PO2 116.3 mmHg (80-100)
[2018-07-29 06:38] LABS: BLOOD UREA NITROGEN 16 mg/dL (7-20)
[2018-07-29] MEDS: LEVALBUTEROL HCL NEB 1.25 MG/3 ML AMPUL NEB SCH ×2 (08:51→21:16)
[2018-07-29] MEDS ORDERED: NALOXONE HCL INJ/PF 0.4 MG/1 ML SDV ONE ×2 (10:00→11:03)
[2018-07-29 10:48] LABS: ARTERIAL BLOOD BASE EXCESS -1.2 mmol/L; ARTERIAL BLOOD H2CO3 0.98 mmol/L (1.05-1.35); ARTERIAL BLOOD HCO3 22.2 mmol/L (20-24); ARTERIAL BLOOD O2 SATURATION 98.3 % (94-98); ARTERIAL BLOOD PCO2 32.4 mmHg (35-45); ARTERIAL BLOOD PH 7.45 (7.35-7.45); ARTERIAL BLOOD PO2 111.2 mmHg (80-100); ARTERIAL BLOOD TOTAL CO2 23.2 mmol/L (23-27)
[2018-07-29] MEDS: CEFEPIME 2 GM/D5W RTU 2 GM/50 ML RTUPB IV SCH ×2 (10:49→21:38)
[2018-07-29 10:50] LABS: ARTERIAL BLOOD FIO2 3L
[2018-07-29] MEDS: VANCOMYCIN HCL 750 MG in DEXTROSE 5%-WATER 250 ML IV SCH ×2 (10:50→21:41)
--- NOTE | 2018-07-29 13:42 | RADIOLOGY REPORT (SQ) ---
EXAM DESCRIPTION: CHEST SINGLE VIEW COMPLETED DATE/TIME: 07/29/2018 1:16 pm REASON FOR STUDY: Conrifm Central Line Placement COMPARISON: 07/27/2018 EXAM PARAMETERS: NUMBER OF VIEWS: One view. TECHNIQUE: Single frontal radiographic view of the chest acquired. RADIATION DOSE: NA LIMITATIONS: None. FINDINGS: LUNGS AND PLEURA: Considerable opacification both lung bases. Small pleural effusions. C annot exclude mild pulmonary edema. MEDIASTINUM AND HILAR STRUCTURES: No masses. Contour normal. HEART AND VASCULAR STRUCTURES: Heart size is borderline. BONES: No acute findings. HARDWARE: Right internal jugular catheter has its tip in the superior vena cava. OTHER: No other significant finding. IMPRESSION: Borderline cardiomegaly with mild pulmonary edema. There appears to be airspace disease in both lower lobes, pneumonia versus atelectasis. Left pleural effusion. Small somewhat loculated right pleural effusion. Right internal jugular catheter as described. TECHNICAL DOCUMENTATION: JOB ID: [id number] [employer]- All Rights Reserved Reading location - IP/workstation name: [email or web address]
[2018-07-29] MEDS ORDERED: POTASSIUM CHLORIDE 10 MEQ CAPSULE.ER PO ONE (16:00)
--- NOTE | 2018-07-29 17:20 | RADIOLOGY REPORT (SQ) ---
EXAM DESCRIPTION: CTA CHEST COMPLETED DATE/TIME: 07/29/2018 5:03 pm REASON FOR STUDY: SOB, Admitted for Endocarditis, IV Drug Abuse COMPARISON: Chest radiograph TECHNIQUE: CT scan of the chest performed using helical scanning technique with dynamic intravenous contrast injection. Images reviewed with lung, soft tissue and bone windows. Reconstructed coronal and sagittal MPR images reviewed. Additional 3 dimensional post-processing performed to develop Maximal Intensity Projection images (MO P). All images stored on PACS. All CT scanners at this facility use dose modulation, iterative reconstruction, and/or weight based d osing when appropriate to reduce radiation dose to as low as reasonably achievable (ALARA). [facility]: Dose Right [facility]: CareDose [facility]: Dose Right [facility]: Teradose 4D [facility]: [place] CONTRAST TYPE AND DOSE: contrast/concentration: Isovue 350.00 mg/ml; Total Contrast Delivered: 68.0 ml; Total Saline Delivered: 108.0 ml Contrast bolus optimized for the pulmonary arteries. Not diagnostic for the aorta. RENAL FUNCTION: None required. The patient is less than 50 years old. RADIATION DOSE: CT Rad equipment meets quality standard of care and radiation dose reduction techniq ues were employed. CTDIvol: 14.3 - 16.5 mGy. DLP: 503 mGy-cm. . LIMITATIONS: None. FINDINGS: LUNGS AND PLEURA: There are multiple bilateral, lower lobe predominant nodules and cavitar y masses of the bilateral lungs. Small associated pleural effusions. AORTA AND GREAT VESSELS: No aneurysm. Contrast bolus not optimized for the aorta. HEART: No pericardial effusion. No significant coronary artery calcifications. PULMONARY ARTERIES: There is segmental thrombus present in the left lower lobe, right middle lobe, an d right lower lobe adjacent to cavitary lesions. HILAR AND MEDIASTINAL STRUCTURES: No identified masses or abnormal nodes. HARDWARE: None in the chest. UPPER ABDOMEN: No significant findings. Limited exam. THYROID AND OTHER SOFT TISSUES: No masses. No adenopathy. BONES: No acute or significant finding. 3D MIPS: Confirm above findings. OTHER: No other significant finding. IMPRESSION: 1. Multifocal thrombus present in the bilateral segmental pulmonary arteries adjacent t o cavitary lung lesions. It is unclear whether this is embolic or thrombus in situ as both may be se en in the setting of cavitary lung disease. No CT evidence of right heart strain. 2. Advanced multifocal cavitary pulmonary disease in keeping with reported clinical history of endoc arditis and septic embolism. COMMENT: Quality ID # [id number]: Final reports with documentation of one or more dose reduction techniques (e.g., Automated exposure control, adjustment of the mA and/or kV according to patient size, use of iterative reconstruction technique) TECHNICAL DOCUMENTATION: JOB ID: [id number] [email or web address] All Rights Reserved Reading location - IP/workstation name: [email or web address]
[2018-07-29] MEDS: NORMAL SALINE 1000 ML 1,000 ML with POTASSIUM CHLORIDE 20 MEQ, MAGNESIUM SULFATE 8 MEQ,... IV SCH ×5 (17:29)
--- NOTE | 2018-07-29 19:08 | Progress Note ---
Provider Note Provider Note: ID Consult Note Asked to review chart and spoke with Dr Van briefly via telephone. Pt not seen or examined. Mr. Finch is a 22 year old man who injects IV heroin who presented with SOB, fever, was found to have bacteremia with a Gram positive organism pending identification. He also has a TTE with a large mobile echodensity on the tricuspid valve with moderate to severe TR and likely septic pulmonary emboli. Creatinine has improved. He is on 3L O2. He continues to have leukocytosis WBC 15 and mild thrombocytopenia. CTA chest read pending. 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 - With no GNRs identified from the blood cultures, cefepime can be discontinued - Indications for surgery for right sided IE are less clear than for left sided IE. Generally the prognosis for R sided IE is relatively good and, with IVDU, the patient is at higher risk for recurrent infection if the valve needs to be replaced (rather than debridement/repair). Surgical consultation would need to be sought if the patient does not end up clearing the bacteremia despite ad equate therapy or develops medically refractory heart failure. Cardiac surgery consultation may be needed as large tricuspid valve vegetation size increases the risk for further embolization to the lungs, and whether this requires early operative intervention is a matter of clinical judgment. Jaime Herrera MD [facility] Infectious Diseases pager [phone]
--- NOTE | 2018-07-29 20:02 | PDOC PROGRESS REPORT ---
Subjective Progress Note for:: 07/29/18 Subjective:: LISS BEACH is a 22 year old male with a past medical history of depression, IV drug abuse with methamphetamine and heroin who presents the emergency room with shortness of breath and cough. He is found to have hypotension, tachypnea, bilateral pneumonia, acute renal failure and hyponatremia. Was started on IV saline, empiric antibiotics and referred to the hospitalist for admission. On admission he complained of sharp right-sided chest pain with deep inhalation and coughing which is nonproductive. Patient appears chronically ill and pale, admits his last use 7 hours prior to presentation and has needle tracking without open ulcer or phlebitis on his right arm. Patient is unaware of HIV, hepatitis status. Patient formerly prescribed Seroquel for depression. Overnight patient was transferred to [facility] my morning round patient was found to be obtunded tachypneic tachycardic requiring more oxygen pulse were noted to be pinpoint and sluggish. After receiving 2 doses of Narcan patient became responsive and was transferred to ICU for more acute care and in case patient needed to intubated. SBP 108-129, pulse 114-136, RR 22-49, highest temperature 101, saturating 100% on 3 L nasal cannula. Blood cultures growing gram-positive cocci in clusters pending sensitivity. Reason For Visit: SEPSIS, IV DRUGS C PNEUMONIA Physical Exam Vital Signs: Temp Pulse Resp BP Pulse Ox 99.8 F 136 H 37 H 123/76 100 07/29/18 18:00 07/29/18 18:00 07/29/18 18:00 07/29/18 18:00 07/29/18 18:00 Intake & Output 07/28/18 07/29/18 07/30/18 06:59 06:59 06:59 Intake Total 3000 6593 1450 Output Total 800 1750 Balance 2200 4843 1450 Weight 50.9 kg 55.9 kg General appearance: PRESENT: mild distress Head exam: PRESENT: atraumatic, normocephalic Respiratory exam: PRESENT: accessory muscle use, crackles, tachypnea Cardiovascular exam: PRESENT: diastolic murmur, systolic murmur, tachycardia GI/Abdominal exam: PRESENT: normal bowel sounds, soft. ABSENT: distended, guarding, mass, organolmegaly, rebound, tenderness Neurological exam: PRESENT: alert, awake, oriented to person, oriented to place, CN II-XII grossly intact Results Laboratory Results: 07/29/18 05:05 07/29/18 05:05 07/29/18 07/29/18 07/29/18 05:05 05:05 06:00 WBC 14.6 H RBC 2.94 L Hgb 8.8 L Hct 25.3 L MCV 86 MCH 29.9 MCHC 34.7 RDW 15.8 H Plt Count 104 L Seg Neutrophils % 77.0 Lymphocytes % 14.8 Monocytes % 7.5 Eosinophils % 0.3 Basophils % 0.4 Absolute Neutrophils 11.3 H Absolute Lymphocytes 2.2 Absolute Monocytes 1.1 Absolute Eosinophils 0.0 Absolute Basophils 0.1 Carbonic Acid 0.82 L HCO3/H2CO3 Ratio 24:1 ABG pH 7.49 H ABG pCO2 27.1 L ABG pO2 116.3 H ABG HCO3 20.1 ABG O2 Saturation 98.6 H ABG Base Excess -2.6 FiO2 ROOM AIR Sodium 139.0 Potassium 3.1 L Chloride 112 H Carbon Dioxide 20 L Anion Gap 7 BUN 16 D Creatinine 0.62 Est GFR ( Amer) > 60 Est GFR (Non-Af Amer) > 60 Glucose 102 Calcium 7.3 L Magnesium 2.4 H Total Bilirubin 0.5 AST 17 ALT 17 L Alkaline Phosphatase 77 Total Protein 4.5 L Albumin 1.8 L 07/29/18 10:30 WBC RBC Hgb Hct MCV MCH MCHC RDW Plt Count Seg Neutrophils % Lymphocytes % Monocytes % Eosinophils % Basophils % Absolute Neutrophils Absolute Lymphocytes Absolute Monocytes Absolute Eosinophils Absolute Basophils Carbonic Acid 0.98 L HCO3/H2CO3 Ratio 22:1 ABG pH 7.45 ABG pCO2 32.4 L ABG pO2 111.2 H ABG HCO3 22.2 ABG O2 Saturation 98.3 H ABG Base Excess -1.2 FiO2 3L Sodium Potassium Chloride Carbon Dioxide Anion Gap BUN Creatinine Est GFR ( Amer) Est GFR (Non-Af Amer) Glucose Calcium Magnesium Total Bilirubin AST ALT Alkaline Phosphatase Total Protein Albumin 07/27/18 17:55 Clean Catch Midstream Urine Culture - Final NO GROWTH 2 DAYS 07/27/18 07/27/18 16:35 16:35 Creatine Kinase 122 CK-MB (CK-2) 1.66 Troponin I < 0.012 Impressions: Apical Lordotic X-Ray 07/27/18 00:00 IMPRESSION: 1. New right IJ line with tip near cavoatrial junction. No pneumothorax. 2. Unchanged small right pleural effusion and bilateral airspace opacities. Chest/Abdomen CTA 07/29/18 00:00 IMPRESSION: 1. Multifocal thrombus present in the bilateral segmental pulmonary arteries adjacent to cavitary lung lesions. It is unclear whether this is embolic or thrombus in situ as both may be seen in the setting of cavitary lung disease. No CT evidence of right heart strain. 2. Advanced multifocal cavitary pulmonary disease in keeping with reported clinical history of endocarditis and septic embolism. Chest X-Ray 07/29/18 12:42 IMPRESSION: Borderline cardiomegaly with mild pulmonary edema. There appears to be airspace disease in both lower lobes, pneumonia versus atelectasis. Left pleural effusion. Small somewhat loculated right pleural effusion. Right internal jugular catheter as described. 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 Most likely secondary to IV drug abuse. Blood culture positive for gram-positive cocci in clusters likely staph. Pending susceptibility. ID has been consulted. Please refer to note. Continue vancomycin and cefepime for now pending final blood cultures result. (2) Pulmonary emboli Is this a current diagnosis for this admission?: Yes Plan: Most likely septic emboli caused by underlying endocarditis. Monitor vitals. Continue underlying endocarditis treatment. (3) Sepsis Qualifiers: Sepsis type: sepsis due to unspecified organism Qualified Code(s): A41.9 - Sepsis, unspecified organism Is this a current diagnosis for this admission?: Yes Plan: Likely due to underlying infectious process. Continue empiric IV antibiotics. Continue IV fluids monitor volume status and vitals. (4) Gram-positive bacteremia Is this a current diagnosis for this admission?: Yes Plan: Likely caused by continuous IV drug abuse. Prelim blood cultures 2/2 are growing gram-positive cocci pending susceptibility. Continue IV empiric antibiotics. (5) Pneumonia Qualifiers: Pneumonia type: due to unspecified organism Laterality: bilateral Lung location: unspecified part of lung Qualified Code(s): J18.9 - Pneumonia, unspecified organism Is this a current diagnosis for this admission?: Yes Plan: Likely complicated by continuous IV drug abuse. Continue IV antibiotics. Follow-up cultures. (6) Hypocalcemia Is this a current diagnosis for this admission?: Yes Plan: Resolved. CMP tomorrow. (7) IV drug abuse Is this a current diagnosis for this admission?: Yes Plan: Supportive measures. Monitor for withdrawals.
[2018-07-29] MEDS: QUETIAPINE FUMARATE 100 MG TABLET PO SCH (21:38)
[2018-07-29 21:55] LABS: VANCOMYCIN,TROUGH < 5.0 ug/mL (5.0-20.0)
[2018-07-30] MEDS: HEPARIN SOD (PORCINE) 5,000 UNIT/ML 1 ML SYRINGE SUBCUT SCH ×2 (06:55→15:26)
[2018-07-30 07:13] LABS: ABSOLUTE BASOPHILS # (AUTO) 0.1 10^3/uL (0.0-0.2); ABSOLUTE LYMPHOCYTES (AUTO) 2.4 10^3/uL (0.5-4.7); ABSOLUTE MONOCYTES (AUTO) 1.1 10^3/uL (0.1-1.4); BASOPHILS % (AUTO) 0.4 % (0-2); EOSINOPHILS % (AUTO) 0.3 % (0-6); HEMATOCRIT 25.8 % (37.9-51.0); HEMOGLOBIN 8.8 g/dL (13.5-17.0); LYMPHOCYTES % (AUTO) 16.6 % (13-45); MEAN CORPUSCULAR HEMOGLOBIN 29.5 pg (27.0-33.4); MEAN CORPUSCULAR HGB CONC 34.2 g/dL (32.0-36.0); MEAN CORPUSCULAR VOLUME 86 fl (80-97); MONOCYTES % (AUTO) 7.7 % (3-13); PLATELET COUNT 136 10^3/uL (150-450); RED BLOOD COUNT 2.99 10^6/uL (4.35-5.55); RED CELL DISTRIBUTION WIDTH 15.7 % (11.5-14.0); TOTAL CELLS COUNTED % (AUTO) 100 %; WHITE BLOOD COUNT 14.6 10^3/uL (4.0-10.5)
[2018-07-30 07:39] LABS: ALANINE AMINOTRANSFERASE 24 U/L (21-72); ALBUMIN 1.8 g/dL (3.5-5.0); ALKALINE PHOSPHATASE 84 U/L (38-126); ASPARTATE AMINO TRANSFERASE 20 U/L (17-59); BILIRUBIN,DIRECT 0.1 mg/dL (0.0-0.4); BILIRUBIN,TOTAL 0.4 mg/dL (0.2-1.3); BLOOD UREA NITROGEN 10 mg/dL (7-20); CALCIUM 7.2 mg/dL (8.4-10.2); CARBON DIOXIDE 22 mmol/L (22-30); CHLORIDE 113 mmol/L (98-107); GLUCOSE 101 mg/dL (75-110); POTASSIUM 3.9 mmol/L (3.6-5.0); TOTAL PROTEIN 4.5 g/dL (6.3-8.2)
[2018-07-30] MEDS: LEVALBUTEROL HCL NEB 1.25 MG/3 ML AMPUL NEB SCH ×2 (07:40→20:43)
[2018-07-30 07:44] LABS: SODIUM 138.2 mmol/L (137-145)
[2018-07-30 07:51] LABS: ANION GAP 3 (5-19)
[2018-07-30] MEDS: VANCOMYCIN HCL 1,000 MG in DEXTROSE 5%-WATER 250 ML IV SCH ×2 (08:04→15:27)
--- NOTE | 2018-07-30 10:13 | PDOC PROGRESS REPORT ---
Subjective Progress Note for:: 07/30/18 Subjective:: laying in bed with his head under the sheet- answers questions but doesnt really open his eyes. states it hurts to take a deep breath Reason For Visit: SEPSIS, IV DRUGS C PNEUMONIA Physical Exam Vital Signs: Temp Pulse Resp BP Pulse Ox 99.3 F 135 H 38 H 131/85 H 93 07/30/18 04:00 07/30/18 08:00 07/30/18 09:31 07/30/18 09:31 07/30/18 09:31 Intake & Output 07/29/18 07/30/18 07/31/18 06:59 06:59 06:59 Intake Total 6593 3323 250 Output Total 1750 860 Balance 4843 2463 250 Weight 123 lb 3.814 oz 134 lb 14.766 oz General appearance: PRESENT: no acute distress Head exam: PRESENT: atraumatic, normocephalic Eye exam: PRESENT: EOMI. ABSENT: conjunctival injection, scleral icterus Ear exam: PRESENT: normal external ear exam Mouth exam: PRESENT: tongue midline Neck exam: ABSENT: tracheal deviation Respiratory exam: PRESENT: decreased breath sounds - bilaterally, symmetrical Cardiovascular exam: PRESENT: +S1, +S2 Pulses: PRESENT: +2 pedal pulses bilateral GI/Abdominal exam: PRESENT: normal bowel sounds, soft. ABSENT: tenderness Extremities exam: PRESENT: +2 edema Neurological exam: PRESENT: alert, oriented to person, oriented to place, oriented to time, other - face under sheet- he wont open eyes or look at me as he talks to me Skin exam: PRESENT: other - small areas of dark spots on skin all over his body. non tender Results Laboratory Results: 07/30/18 07:00 07/30/18 07:00 07/29/18 07/29/18 07/30/18 10:30 21:10 07:00 WBC 14.6 H RBC 2.99 L Hgb 8.8 L Hct 25.8 L MCV 86 MCH 29.5 MCHC 34.2 RDW 15.7 H Plt Count 136 L Seg Neutrophils % 75.0 Lymphocytes % 16.6 Monocytes % 7.7 Eosinophils % 0.3 Basophils % 0.4 Absolute Neutrophils 11.0 H Absolute Lymphocytes 2.4 Absolute Monocytes 1.1 Absolute Eosinophils 0.0 Absolute Basophils 0.1 Carbonic Acid 0.98 L HCO3/H2CO3 Ratio 22:1 ABG pH 7.45 ABG pCO2 32.4 L ABG pO2 111.2 H ABG HCO3 22.2 ABG O2 Saturation 98.3 H ABG Base Excess -1.2 FiO2 3L Sodium Potassium Chloride Carbon Dioxide Anion Gap BUN Creatinine 0.55 Est GFR ( Amer) > 60 Est GFR (Non-Af Amer) > 60 Glucose Calcium Magnesium Total Bilirubin AST ALT Alkaline Phosphatase Total Protein Albumin 07/30/18 07:00 WBC RBC Hgb Hct MCV MCH MCHC RDW Plt Count Seg Neutrophils % Lymphocytes % Monocytes % Eosinophils % Basophils % Absolute Neutrophils Absolute Lymphocytes Absolute Monocytes Absolute Eosinophils Absolute Basophils Carbonic Acid HCO3/H2CO3 Ratio ABG pH ABG pCO2 ABG pO2 ABG HCO3 ABG O2 Saturation ABG Base Excess FiO2 Sodium 138.2 Potassium 3.9 Chloride 113 H Carbon Dioxide 22 Anion Gap 3 L BUN 10 Creatinine 0.55 Est GFR ( Amer) > 60 Est GFR (Non-Af Amer) > 60 Glucose 101 Calcium 7.2 L Magnesium 2.2 Total Bilirubin 0.4 AST 20 ALT 24 Alkaline Phosphatase 84 Total Protein 4.5 L Albumin 1.8 L 07/27/18 16:35 Blood Blood Culture - Final Staphylococcus Aureus 07/27/18 17:58 Blood Blood Culture - Final Staphylococcus Aureus 07/27/18 17:55 Clean Catch Midstream Urine Culture - Final NO GROWTH 2 DAYS 07/27/18 07/27/18 16:35 16:35 Creatine Kinase 122 CK-MB (CK-2) 1.66 Troponin I < 0.012 Impressions: Apical Lordotic X-Ray 07/27/18 00:00 IMPRESSION: 1. New right IJ line with tip near cavoatrial junction. No pneumothorax. 2. Unchanged small right pleural effusion and bilateral airspace opacities. Chest/Abdomen CTA 07/29/18 00:00 IMPRESSION: 1. Multifocal thrombus present in the bilateral segmental pulmonary arteries adjacent to cavitary lung lesions. It is unclear whether this is embolic or thrombus in situ as both may be seen in the setting of cavitary lung disease. No CT evidence of right heart strain. 2. Advanced multifocal cavitary pulmonary disease in keeping with reported clinical history of endocarditis and septic embolism. Chest X-Ray 07/29/18 12:42 IMPRESSION: Borderline cardiomegaly with mild pulmonary edema. There appears to be airspace disease in both lower lobes, pneumonia versus atelectasis. Left pleural effusion. Small somewhat loculated right pleural effusion. Right internal jugular catheter as described. Assessment & Plan - Diagnosis (1) Endocarditis Qualifiers: Endocarditis type: infective Chronicity: acute Is this a current diagnosis for this admission?: Yes (2) Gram-positive bacteremia Is this a current diagnosis for this admission?: Yes (3) IV drug abuse Is this a current diagnosis for this admission?: Yes (4) Murmur Is this a current diagnosis for this admission?: Yes (5) Pneumonia Qualifiers: Pneumonia type: due to unspecified organism Laterality: bilateral Lung location: unspecified part of lung Qualified Code(s): J18.9 - Pneumonia, unspecified organism Is this a current diagnosis for this admission?: Yes (6) Pulmonary emboli Is this a current diagnosis for this admission?: Yes (7) Sepsis Qualifiers: Sepsis type: sepsis due to unspecified organism Qualified Code(s): A41.9 - Sepsis, unspecified organism Is this a current diagnosis for this admission?: Yes (8) Tachypnea Is this a current diagnosis for this admission?: Yes (9) Pulmonary cavitary lesion Is this a current diagnosis for this admission?: Yes (10) Septic pulmonary embolism Is this a current diagnosis for this admission?: Yes - Time Total Critical Time (Minutes): 32 - Inpatient Certification Based on my medical assessment, after consideration of the patient's comorbidities, presenting symptoms, or acuity I expect that the services needed warrant INPATIENT care.: Yes I certify that my determination is in accordance with my understanding of Medicare's requirements for reasonable and necessary INPATIENT services [42 CFR 412.3e].: Yes Medical Necessity: Significant Comorbidiites Make Outpatient Treatment Too Risky, Need For Continuous Telemetry Monitoring, Need for IV Antibiotics - Plan Summary Plan Summary: endocarditis- on Vanco- stopped cefepime today- positive BCx for Staph- pansensitive except for erythromycin and clinda. c/w vanco. he has vegetation on right side of his heart- Tricuspid. appreciate ID consult. concern now is about his valve- i am not sure if CT surgery anywhere will want to surgical intervention while he's infected and has been actively using IV drugs within last 2 weeks prior to admission. i spoke with dr euceda about his unofficially and he will provide me with a CT surgery contact and i will discuss further about this valve. tachypnea- RR >30 - i am worried he will tire out soon and will need to be on the vent if he can't protect airway. Septic emboli- seen on CTA and also vegetation noted. Cavitary lesion- AFB sent and pending- air borne precautions for onw. sepsis- 2/2 above. IVDU- h/o heroin use restrict visitors to his room- as there's suspicion about his significant other bringing in illicit drugs for him.
--- NOTE | 2018-07-30 16:17 | PDOC TRANSFER SUMMARY ---
General Admission Date/PCP: 07/27/18 19:39 Accepting Facility: [facility] Resuscitation Status: Full Code - Transfer Diagnosis (1) Endocarditis Is this a current diagnosis for this admission?: Yes (2) Gram-positive bacteremia Is this a current diagnosis for this admission?: Yes (3) IV drug abuse Is this a current diagnosis for this admission?: Yes (4) Murmur Is this a current diagnosis for this admission?: Yes (5) Pneumonia Is this a current diagnosis for this admission?: Yes (6) Pulmonary emboli Is this a current diagnosis for this admission?: Yes (7) Sepsis Is this a current diagnosis for this admission?: Yes (8) Tachypnea Is this a current diagnosis for this admission?: Yes (9) Pulmonary cavitary lesion Is this a current diagnosis for this admission?: Yes (10) Septic pulmonary embolism Is this a current diagnosis for this admission?: Yes - Transfer Medications Home Medications: No Home Medications 07/27/18 Transfer Medications: Current Medications Acetaminophen (Tylenol 325 Mg Tablet) 650 mg PO Q4HP PRN PRN Reason: pain or temp greater than 101F Stop: 08/26/18 19:50 Last Admin: 07/29/18 23:35 Dose: 650 mg Documented by: Heparin Sodium (Porcine) (Heparin Inj 5,000 Units/Ml 1 Ml Syringe) 5,000 unit SUBCUT Q8 COUNT INCLUDES THE [facility] Stop: 08/26/18 21:59 Last Admin: 07/30/18 15:26 Dose: 5,000 unit Documented by: Sodium Chloride (Nacl 0.9% 1000 Ml Iv Soln) 1,000 mls @ 125 mls/hr IV CONTINUOUS PRN PRN Reason: THIS MED IS NOT "PRN" Stop: 08/27/18 09:47 Last Admin: 07/29/18 13:44 Dose: 125 mls/hr Documented by: Potassium Chloride 20 meq/Magnesium Sulfate 8 meq/Thiamine HCl 100 mg/Multivitamins/Minerals 10 ml/Sodium Chloride 1,023 mls @ 100 mls/hr IV QPM COUNT INCLUDES THE [facility] Stop: 08/27/18 17:59 Last Infusion: 07/30/18 04:10 Dose: Infused Documented by: Vancomycin HCl 1,000 mg/ (Dextrose) 250 mls @ 166.667 mls/hr IV Q8 COUNT INCLUDES THE [facility] Stop: 08/06/18 07:59 Last Admin: 07/30/18 15:27 Dose: 166.67 mls/hr, 166.67 mls/hr Documented by: Influenza Virus Vaccine Quadrival (Fluarix Adlt Quad Vac 0.5 Ml Syr) 0.5 ml IM .DISCHARGE PRN PRN Reason: THIS MED IS NOT "PRN" Stop: 08/26/18 21:27 Levalbuterol HCl (Xopenex Neb 1.25 Mg/3 Ml Ampul) 1.25 mg NEB RTQ12 KENNETH Stop: 08/27/18 19:59 Last Admin: 07/30/18 07:40 Dose: Not Given Documented by: Lorazepam (Ativan Inj 2 Mg/1 Ml Vial) 1 mg IV Q2HP PRN PRN Reason: ANXIETY/AGITATION Stop: 08/04/18 18:01 Last Admin: 07/29/18 03:27 Dose: 1 mg Documented by: Oxycodone/Acetaminophen (Percocet 5-325 Mg Tablet) 1 tab PO Q4HP PRN PRN Reason: PAIN Stop: 08/04/18 09:47 Quetiapine Fumarate (Seroquel 100 Mg Tablet) 50 mg PO QHS COUNT INCLUDES THE [facility] Stop: 08/27/18 21:59 Last Admin: 07/29/18 21:38 Dose: 50 mg Documented by: Sodium Chloride (Saline Flush 2.5 Ml Monoject Prefil Syrin) 2.5 ml IV Q8 COUNT INCLUDES THE [facility] Stop: 08/26/18 19:59 Last Admin: 07/30/18 15:26 Dose: 2.5 ml Documented by: - Allergies Allergies/Adverse Reactions: No Known Allergies Allergy (Verified 07/06/16 18:49) - Diet/Activity Discharge Diet: Regular Hospital Course Hospital Course: Per admitting physician: "LISS BEACH is a 22 year old male with a past medical history of depression, IV drug abuse with methamphetamine and heroin who presents the emergency room with shortness of breath and cough. He is found to have hypotension, tachypnea, bilateral pneumonia, acute renal failure and hyponatremia. He started on IV saline, empiric antibiotics and referred to the hospitalist for admission. He complains of sharp right-sided chest pain with deep inhalation and coughing which is nonproductive. Patient appears chronically ill and pale, admits his last use 7 hours prior to presentation and has needle tracking without open ulcer or phlebitis on his right arm. Patient is unaware of HIV, hepatitis status. Patient formerly prescribed Seroquel for depression." hospital course: since admission - he had TTE which showed a >6cm circumferential vegetation of the Tricuspid. CTA chest was done which showed septic emboli. CTA chest also shows cavitary lesion of the lung- concern for TB and AFB has been sent. he's currently on airborne precautions until results return. Blood culture positive for Staph Aureus - resistant only to clinda and erythromycin. Dr Herrera from [facility] [place] [place] consulted regarding case- she recommends IV vancomycin. I assumed care of patient this morning- he has been admitted to the ICU- today is day 3. he's tachynic and tachycardic- also having fevers. he's on RA and Sat >92%. he's alert and oriented at this time. i am concerned that he will tire out at some point since his respiratory rate is >40 while i am bedside and has been >30 constantly. given his current status- he needs a CT surgery consultation for possible surgical intervention. I reached out to [facility] [place] [place] CT surgery - spoke with THEO Castillo for CT surgery. later I spoke with Framing Consultant Dr Hartley- who graciously accepted patient to his service for further management. Physical Exam Vital Signs: Temp Pulse Resp BP Pulse Ox 100.3 F 133 H 26 H 133/113 H 98 07/30/18 12:00 07/30/18 14:00 07/30/18 15:32 07/30/18 15:32 07/30/18 15:32 Intake & Output 07/29/18 07/30/18 07/31/18 06:59 06:59 06:59 Intake Total 6593 3323 250 Output Total 1750 860 0 Balance 4843 2463 250 Weight 123 lb 3.814 oz 134 lb 14.766 oz General appearance: PRESENT: no acute distress Head exam: PRESENT: atraumatic, normocephalic Eye exam: PRESENT: EOMI. ABSENT: conjunctival injection, scleral icterus Ear exam: PRESENT: normal external ear exam Neck exam: ABSENT: tracheal deviation Respiratory exam: PRESENT: accessory muscle use, decreased breath sounds - bilaterally at the bases, symmetrical, tachypnea, wheezes Cardiovascular exam: PRESENT: +S1, +S2 Pulses: PRESENT: +2 pedal pulses bilateral GI/Abdominal exam: PRESENT: normal bowel sounds, soft. ABSENT: tenderness Extremities exam: ABSENT: pedal edema Neurological exam: PRESENT: alert, awake, oriented to person, oriented to place, CN II-XII grossly intact Skin exam: PRESENT: dry, warm Results Laboratory Results: 07/30/18 07:00 07/30/18 07:00 07/29/18 07/30/18 07/30/18 21:10 07:00 07:00 WBC 14.6 H RBC 2.99 L Hgb 8.8 L Hct 25.8 L MCV 86 MCH 29.5 MCHC 34.2 RDW 15.7 H Plt Count 136 L Seg Neutrophils % 75.0 Lymphocytes % 16.6 Monocytes % 7.7 Eosinophils % 0.3 Basophils % 0.4 Absolute Neutrophils 11.0 H Absolute Lymphocytes 2.4 Absolute Monocytes 1.1 Absolute Eosinophils 0.0 Absolute Basophils 0.1 Sodium 138.2 Potassium 3.9 Chloride 113 H Carbon Dioxide 22 Anion Gap 3 L BUN 10 Creatinine 0.55 0.55 Est GFR ( Amer) > 60 > 60 Est GFR (Non-Af Amer) > 60 > 60 Glucose 101 Calcium 7.2 L Magnesium 2.2 Total Bilirubin 0.4 AST 20 ALT 24 Alkaline Phosphatase 84 Total Protein 4.5 L Albumin 1.8 L 07/27/18 16:35 Blood Blood Culture - Final Staphylococcus Aureus 07/27/18 17:58 Blood Blood Culture - Final Staphylococcus Aureus 07/27/18 07/27/18 16:35 16:35 Creatine Kinase 122 CK-MB (CK-2) 1.66 Troponin I < 0.012 Impressions: Apical Lordotic X-Ray 07/27/18 00:00 IMPRESSION: 1. New right IJ line with tip near cavoatrial junction. No pneumothorax. 2. Unchanged small right pleural effusion and bilateral airspace opacities. Chest/Abdomen CTA 07/29/18 00:00 IMPRESSION: 1. Multifocal thrombus present in the bilateral segmental pul monary arteries adjacent to cavitary lung lesions. It is unclear whether this is embolic or thrombus in situ as both may be seen in the setting of cavitary lung disease. No CT evidence of right heart strain. 2. Advanced multifocal cavitary pulmonary disease in keeping with reported clinical history of endocarditis and septic embolism. Chest X-Ray 07/29/18 12:42 IMPRESSION: Borderline cardiomegaly with mild pulmonary edema. There appears to be airspace disease in both lower lobes, pneumonia versus atelectasis. Left pleural effusion. Small somewhat loculated right pleural effusion. Right internal jugular catheter as described. Plan Time Spent: Greater than 30 Minutes
[2018-07-30] MEDS: NORMAL SALINE 1000 ML 1,000 ML with POTASSIUM CHLORIDE 20 MEQ, MAGNESIUM SULFATE 8 MEQ,... IV SCH ×5 (17:48)
[2018-07-30 20:24] VITALS: BP 128/66
[2018-07-31 09:38] LABS: HEPATITIS A AB IGM Negative (Negative); HEPATITIS B CORE AB IGM Negative (Negative); HEPATITS B SURFACE ANTIGEN Negative (Negative)
[2018-08-01 11:31] LABS: HEPATITIS C VIRUS ANTIBODY >11.0 s/co ratio (0.0-0.9)
== END 2018-07-30 20:30 | disposition short-term general hospital (02) | DRG 871 ==
LOC: ER 16:00 → EH 19:39 → ICU 20:56 → 3S 07-29 07:30 → ICU 07-29 12:12
PROVIDERS: ADMIT Internal Medicine; ATTEND Internal Medicine
PROC: 02HV33Z Insertion of Infusion Device into Superior Vena Cava, Percutaneous Approach (ICD-10-PCS; principal; 2018-07-27)
PROC: 3E0F3GC Introduction of Other Therapeutic Substance into Respiratory Tract, Percutaneous Approach (ICD-10-PCS; 2018-07-28)
DX: A41.9 Sepsis, unspecified organism (principal); J18.9 Pneumonia, unspecified organism; I33.0 Acute and subacute infective endocarditis; I26.90 Septic pulmonary embolism without acute cor pulmonale; N17.9 Acute kidney failure, unspecified; E87.1 Hypo-osmolality and hyponatremia; E83.51 Hypocalcemia; F11.10 Opioid abuse, uncomplicated; F15.10 Other stimulant abuse, uncomplicated; F32.9 Major depressive disorder, single episode, unspecified; R06.82 Tachypnea, not elsewhere classified; B95.8 Unspecified staphylococcus as the cause of diseases classified elsewhere
CPT/HCPCS: 36415; 36600; 71045; 71047; 71275; 80048; 80053; 80074; 80202; 80307; 81001; 82040; 82550; 82553; 82565; 82803; 83605; 83735; 84484; 85025; 85610; 86701; 87015; 87040; 87077; 87086; 87116; 87186; 87206; 93005; 93010; 93306; 94640; 94799; 96361; 96365; 96375; 99291; C1751; J0610; J0692; J0696; J1644; J2060; J2310; J3370; J3411; J3475; J3480; J3490; J7030; J7060; J7620

== ENCOUNTER 2018-09-08 18:01 | Inpatient (IN) | payer MEDICAID ==
[2018-09-08] MEDS ORDERED: ONDANSETRON HCL INJ/PF 4 MG/2 ML SDV IV PRN (18:32)
--- NOTE | 2018-09-08 18:32 | PDOC H&P ---
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 Patient presented with shortness of breath and cough and found to have hypotension tachypnea bilateral cavitary pneumonia acute renal failure and hyponatremia. Here at [facility] trans-thoracic echocardiogram revealed greater than 6 cm circumferential vegetation of tricuspid and his CTA chest was done which showed septic emboli and cavitary lesions of the lung will culture was positive for staph aureus which is resistant only to clindamycin and erythromycin. And has been managed empirically with antibiotics here at [facility] R patient transferred to [facility] for further evaluation and management. 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 Reportedly the patient is not a candidate for valve repair or acute surgical intervention. Patient transferred back to [facility] to further continue his antibiotics namely Ancef until September 10, 2018. They recommended also outpatient follow-up with CT surgery and repeat echo after antibiotic therapy. Past Medical History Psychiatric Medical History: Reports: Depression Social History Smoking Status: Current Every Day Smoker Frequency of Alcohol Use: None Hx Recreational Drug Use: Yes Drugs: Heroin - Advance Directive Resuscitation Status: Full Code Family History Family History: Hypertension Parental Family History Reviewed: Yes Children Family History Reviewed: Yes Sibling(s) Family History Reviewed.: Yes Medication/Allergy Home Medications: Acetaminophen [Tylenol 325 mg Tablet] 650 mg PO Q4HP PRN tablet 07/30/18 Levalbuterol HCl [Xopenex Neb 1.25 mg/3 ml Ampul] 1.25 mg NEB RTQ12 vial.neb 07/30/18 Oxycodone HCl/Acetaminophen [Percocet 5-325 mg Tablet] 1 tab PO Q4HP PRN tablet 07/30/18 Quetiapine Fumarate [Seroquel 100 mg Tablet] 50 mg PO QHS tablet 07/30/18 Vancomycin HCl [Vancocin Inj 1000 mg Vial] 1,000 mg IV Q8 vial 07/30/18 Allergies/Adverse Reactions: No Known Allergies Allergy (Verified 07/06/16 18:49) Review of Systems Constitutional: ABSENT: chills, fever(s), headache(s), weight gain, weight loss Eyes: ABSENT: visual disturbances Ears: ABSENT: hearing changes Cardiovascular: ABSENT: chest pain, dyspnea on exertion, edema, orthropnea, palpitations Respiratory: ABSENT: cough, hemoptysis Gastrointestinal: ABSENT: abdominal pain, constipation, diarrhea, hematemesis, hematochezia, nausea, vomiting Genitourinary: ABSENT: dysuria, hematuria Musculoskeletal: ABSENT: joint swelling Integumentary: ABSENT: rash, wounds Neurological: ABSENT: abnormal gait, abnormal speech, confusion, dizziness, focal weakness, syncope Psychiatric: ABSENT: anxiety, depression, homidical ideation, suicidal ideation Endocrine: ABSENT: cold intolerance, heat intolerance, polydipsia, polyuria Hematologic/Lymphatic: ABSENT: easy bleeding, easy bruising Physical Exam Vital Signs: Intake & Output 09/07/18 09/08/18 09/09/18 06:59 06:59 06:59 Weight 53.1 kg General appearance: PRESENT: no acute distress, well-developed, well-nourished Head exam: PRESENT: atraumatic, normocephalic Eye exam: PRESENT: conjunctiva pink, EOMI, PERRLA. ABSENT: scleral icterus Ear exam: PRESENT: normal external ear exam Mouth exam: PRESENT: moist, tongue midline Neck exam: ABSENT: carotid bruit, JVD, lymphadenopathy, thyromegaly Respiratory exam: PRESENT: clear to auscultation neela. ABSENT: rales, rhonchi, wheezes Cardiovascular exam: PRESENT: RRR. ABSENT: diastolic murmur, rubs, systolic murmur Pulses: PRESENT: normal dorsalis pedis pul Vascular exam: PRESENT: normal capillary refill GI/Abdominal exam: PRESENT: normal bowel sounds, soft. ABSENT: distended, g uarding, mass, organolmegaly, rebound, tenderness Rectal exam: PRESENT: deferred Extremities exam: PRESENT: full ROM. ABSENT: calf tenderness, clubbing, pedal edema Neurological exam: PRESENT: alert, awake, oriented to person, oriented to place, oriented to time, oriented to situation, CN II-XII grossly intact. ABSENT: mo tor sensory deficit Psychiatric exam: PRESENT: appropriate affect, normal mood. ABSENT: homicidal ideation, suicidal ideation Skin exam: PRESENT: dry, intact, warm. 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 We will continue Ancef until August 13, 2018 (2) Septic pulmonary embolism Is this a current diagnosis for this admission?: Yes Plan: Continue the same antibiotics (3) IV heroin addiction Is this a current diagnosis for this admission?: Yes Plan: Patient counseled and encouraged to stay clean. - Inpatient Certification Medical Necessity: Need Close Monitoring Due to Risk of Patient Decompensation, Need for IV Antibiotics
[2018-09-08] MEDS ORDERED: HALOPERIDOL LACTATE INJ 5 MG/1 ML VIAL ONE (20:11)
[2018-09-08] MEDS ORDERED: HYDROMORPHONE HCL INJ/PF 2 MG/ML AMPULE ONE (20:11)
[2018-09-08] MEDS: CEFAZOLIN 2 GM/D5W RTU 2 GM/50 ML RTUPB IV SCH (20:16)
[2018-09-08] MEDS ORDERED: HALOPERIDOL LACTATE INJ 5 MG/1 ML VIAL IV ONE (20:20)
[2018-09-08] MEDS ORDERED: HYDROMORPHONE HCL INJ/PF 2 MG/ML AMPULE IV ONE (20:20)
[2018-09-08] MEDS: FONDAPARINUX SODIUM INJ 2.5 MG/0.5 ML DISP.SYRIN SUBCUT SCH (20:29)
[2018-09-09] MEDS: CEFAZOLIN 2 GM/D5W RTU 2 GM/50 ML RTUPB IV SCH ×5 (00:07→23:15)
[2018-09-09] MEDS: HYDROMORPHONE HCL 2 MG TABLET PO PRN ×5 (00:07→23:15)
[2018-09-09 07:25] LABS: ANION GAP 13 (5-19); BLOOD UREA NITROGEN 6 mg/dL (7-20); CALCIUM 9.7 mg/dL (8.4-10.2); CARBON DIOXIDE 24 mmol/L (22-30); CHLORIDE 104 mmol/L (98-107); GLUCOSE 99 mg/dL (75-110); POTASSIUM 4.3 mmol/L (3.6-5.0); SODIUM 140.8 mmol/L (137-145)
[2018-09-09] MEDS: FONDAPARINUX SODIUM INJ 2.5 MG/0.5 ML DISP.SYRIN SUBCUT SCH (08:00)
[2018-09-09 09:16] LABS: ABSOLUTE BASOPHILS # (AUTO) 0.3 10^3/uL (0.0-0.2); ABSOLUTE EOSINOPHILS # (AUTO) 0.3 10^3/uL (0.0-0.6); ABSOLUTE LYMPHOCYTES (AUTO) 3.9 10^3/uL (0.5-4.7); ABSOLUTE MONOCYTES (AUTO) 1.3 10^3/uL (0.1-1.4); ABSOLUTE NEUT (AUTO) 7.1 10^3/uL (1.7-8.2); EOSINOPHILS % (AUTO) 2.1 % (0-6); HEMATOCRIT 27.4 % (37.9-51.0); HEMOGLOBIN 9.2 g/dL (13.5-17.0); LYMPHOCYTES % (AUTO) 30.1 % (13-45); MEAN CORPUSCULAR HEMOGLOBIN 28.4 pg (27.0-33.4); MEAN CORPUSCULAR HGB CONC 33.5 g/dL (32.0-36.0); MEAN CORPUSCULAR VOLUME 85 fl (80-97); RED BLOOD COUNT 3.24 10^6/uL (4.35-5.55); RED CELL DISTRIBUTION WIDTH 16.7 % (11.5-14.0); SEGMENTED NEUTROPHILS % (AUTO) 55.8 % (42-78); TOTAL CELLS COUNTED % (AUTO) 100 %; WHITE BLOOD COUNT 12.8 10^3/uL (4.0-10.5)
[2018-09-09 09:33] LABS: PLATELET COUNT 304 10^3/uL (150-450)
[2018-09-09] MEDS ORDERED: (PENDING PHARMACY ID) (Quetiapine Fumarate [Seroquel] 50 MG) PO SCH (10:00)
[2018-09-09] MEDS: METOPROLOL TARTRATE 50 MG TABLET PO SCH ×2 (11:41→18:32)
[2018-09-09] MEDS: BUSPIRONE HCL 10 MG TABLET PO SCH ×2 (11:41→18:25)
[2018-09-09] MEDS: FERROUS SULFATE 325 MG TABLET PO SCH (11:42)
[2018-09-09] MEDS: ASPIRIN 325 MG TABLET PO SCH (11:42)
[2018-09-09] MEDS: QUETIAPINE FUMARATE 100 MG TABLET PO SCH ×2 (11:43→18:23)
--- NOTE | 2018-09-09 17:23 | PDOC PROGRESS REPORT ---
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 He was subsequently transferred to [facility] where he underwent right-sided cath with Angiovac debridement x2. He is not a candidate for surgical valve repair. He return to [place] 09/08/2018 to complete his IV antibiotic therapy. The patient was seen on afternoon rounds. He was found resting in bed comfortably on room air. He was sleeping soundly when I entered the room and it took several attempts to wake him. He reports that he feels fine and wants to be left alone. He does deny fever, chills, chest pain, palpitations, dyspnea, abdominal pain, nausea. He denies discomfort or swelling to his right upper extremity; acknowledges that the nursing staff is having difficulty with his PICC line and is agreeable to insertion of PIV to complete his antibiotic therapy. He has no other questions or concerns at this time. No other concerns per nursing. Reason For Visit: INFECTIVE ENDOCARDITIS Physical Exam Vital Signs: Temp Pulse Resp BP Pulse Ox 98.3 F 92 19 105/64 99 09/09/18 15:11 09/09/18 15:11 09/09/18 15:11 09/09/18 15:11 09/09/18 15:11 Intake & Output 09/08/18 09/09/18 09/10/18 06:59 06:59 06:59 Intake Total 150 368 Balance 150 368 Weight 54.2 kg General appearance: PRESENT: no acute distress, disheveled, well-developed, well-nourished - Overweight Head exam: PRESENT: atraumatic, normocephalic Eye exam: PRESENT: conjunctiva pink, EOMI, PERRLA. ABSENT: scleral icterus Mouth exam: PRESENT: moist, tongue midline Respiratory exam: PRESENT: clear to auscultation neela, symmetrical, unlabored. ABSENT: rales, rhonchi, wheezes Cardiovascular exam: PRESENT: RRR. ABSENT: diastolic murmur, rubs, systolic murmur Vascular exam: PRESENT: normal capillary refill Rectal exam: PRESENT: deferred Extremities exam: PRESENT: full ROM. ABSENT: calf tenderness, clubbing, pedal edema Neurological exam: PRESENT: alert, awake, oriented to person, oriented to place, oriented to time, oriented to situation, CN II-XII grossly intact. ABSENT: motor sensory deficit Psychiatric exam: PRESENT: appropriate affect, flat affect, normal mood. ABSENT: homicidal ideation, suicidal ideation Skin exam: PRESENT: dry, intact, warm, other - Diaphoretic. ABSENT: cyanosis, rash Results Laboratory Results: 09/09/18 09:07 09/09/18 05:00 09/09/18 09/09/18 09/09/18 05:00 05:00 09:07 WBC Cancelled 12.8 H RBC Cancelled 3.24 L Hgb Cancelled 9.2 L Hct Cancelled 27.4 L MCV Cancelled 85 MCH Cancelled 28.4 MCHC Cancelled 33.5 RDW Cancelled 16.7 H Plt Count Cancelled 304 Seg Neutrophils % Cancelled 55.8 Lymphocytes % Cancelled 30.1 Monocytes % Cancelled 10.0 Eosinophils % Cancelled 2.1 Basophils % Cancelled 2.0 Absolute Neutrophils Cancelled 7.1 Absolute Lymphocytes Cancelled 3.9 Absolute Monocytes Cancelled 1.3 Absolute Eosinophils Cancelled 0.3 Absolute Basophils Cancelled 0.3 H Sodium 140.8 Potassium 4.3 Chloride 104 Carbon Dioxide 24 Anion Gap 13 BUN 6 L Creatinine 0.43 L Est GFR ( Amer) > 60 Est GFR (Non-Af Amer) > 60 Glucose 99 Calcium 9.7 Assessment & Plan - Diagnosis (1) 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 Returned to [facility] to complete course of abx treatment. Unable to locate transfer summary or ID notes; have requested nursing to obtain new copies. Patient is diaphoretic, low-grade temp, with leukocytosis today. Repeat blood cultures obtained. PICC line is discontinued as nursing is unable to obtain blood or flush. Obtain PIV access. Continue Ancef 2 g every 6 hours through tomorrow. Patient will require infectious disease and cardiovascular surgery follow-up post discharge. (2) Septic pulmonary embolism Is this a current diagnosis for this admission?: Yes Plan: Patient is now maintaining oxygen saturations on room air. He denies dyspnea, orthopnea, cough, chest pain. Continue antibiotic regimen as above. (3) IV drug abuse Is this a current diagnosis for this admission?: Yes Plan: Patient with a long-standing history of IV drug abuse. Lifestyle modifications are encouraged. Patient declined mental health consultation. (4) Leukocytosis Is this a current diagnosis for this admission?: Yes Plan: He is withdrawn today and noted to have Temp 100, heart rate 106, and diaphoresis with WBC 12.8 this morning. It is unclear if this has been his recent clinical status related to #1 or is an indication of new or worsening problem. Have requested records from [facility] be re-faxed. Repeat blood cultures. Antibiotics as above. - Time Time Spent with patient: 15-24 minutes Medications reviewed and adjusted accordingly: Yes Anticipated discharge: Home Within: within 48 hours - Inpatient Certification Based on my medical assessment, after consideration of the patient's comorbidit ies, presenting symptoms, or acuity I expect that the services needed warrant INPATIENT care.: Yes I certify that my determination is in accordance with my understanding of Me maynor's requirements for reasonable and necessary INPATIENT services [42 CFR 412.3e].: Yes Medical Necessity: Need for IV Antibiotics
[2018-09-10] MEDS: HYDROMORPHONE HCL 2 MG TABLET PO PRN ×4 (03:41→21:23)
[2018-09-10] MEDS: CEFAZOLIN 2 GM/D5W RTU 2 GM/50 ML RTUPB IV SCH ×3 (05:56→18:20)
[2018-09-10 06:58] LABS: HEMATOCRIT 29.3 % (37.9-51.0); HEMOGLOBIN 9.9 g/dL (13.5-17.0); MEAN CORPUSCULAR HEMOGLOBIN 28.6 pg (27.0-33.4); MEAN CORPUSCULAR HGB CONC 33.8 g/dL (32.0-36.0); MEAN CORPUSCULAR VOLUME 85 fl (80-97); RED BLOOD COUNT 3.46 10^6/uL (4.35-5.55); RED CELL DISTRIBUTION WIDTH 16.9 % (11.5-14.0); WHITE BLOOD COUNT 14.5 10^3/uL (4.0-10.5)
[2018-09-10 07:19] LABS: PLATELET COUNT 330 10^3/uL (150-450)
[2018-09-10] MEDS: FONDAPARINUX SODIUM INJ 2.5 MG/0.5 ML DISP.SYRIN SUBCUT SCH (07:45)
[2018-09-10] MEDS: QUETIAPINE FUMARATE 100 MG TABLET PO SCH ×2 (11:13→18:21)
[2018-09-10] MEDS: ASPIRIN 325 MG TABLET PO SCH (11:13)
[2018-09-10] MEDS: BUSPIRONE HCL 10 MG TABLET PO SCH ×2 (11:13→18:20)
[2018-09-10] MEDS: FERROUS SULFATE 325 MG TABLET PO SCH (11:15)
[2018-09-10] MEDS: METOPROLOL TARTRATE 50 MG TABLET PO SCH ×2 (11:15→18:27)
--- NOTE | 2018-09-10 11:42 | RADIOLOGY REPORT (SQ) ---
EXAM DESCRIPTION: CHEST SINGLE VIEW COMPLETED DATE/TIME: 09/10/2018 10:52 am REASON FOR STUDY: fever, tachycardia, hypoxia COMPARISON: 07/29/2018 EXAM PARAMETERS: NUMBER OF VIEWS: One view. TECHNIQUE: Single frontal radiographic view of the chest acquired. RADIATION DOSE: NA LIMITATIONS: None. FINDINGS: LUNGS AND PLEURA: Improved aeration in both lungs since the prior. Subcentimeter cavitary lesion overlying lateral left heart border. Small left pleural effusion. MEDIASTINUM AND HILAR STRUCTURES: No masses. Contour normal. HEART AND VASCULAR STRUCTURES: Heart normal in size. Normal vasculature. BONES: No acute findings. HARDWARE: None in the chest. OTHER: Right PICC line with tip overlying SVC. IMPRESSION: Residual versus recurrent cavitary pneumonia left lower lobe. TECHNICAL DOCUMENTATION: JOB ID: [id number] [employer]- All Rights Reserved Reading location - IP/workstation name: [email or web address]
[2018-09-10 11:57] LABS: APPEARANCE,URINE CLEAR; BILIRUBIN,URINE NEGATIVE (NEGATIVE); COLOR,URINE YELLOW; GLUCOSE, URINE NEGATIVE (NEGATIVE); KETONES,URINE NEGATIVE (NEGATIVE); LEUKOCYTE ESTERASE,URINE NEGATIVE (NEGATIVE); NITRITE,URINE NEGATIVE (NEGATIVE); PROTEIN,URINE NEGATIVE (NEGATIVE); URINE SPECIFIC GRAVITY 1.012; UROBILINOGEN,URINE NEGATIVE mg/dL (<2.0)
--- NOTE | 2018-09-10 13:01 | PDOC PROGRESS REPORT ---
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 He was subsequently transferred to [facility] where he underwent right-sided cath with Angiovac debridement x2. He is not a candidate for surgical valve repair. He return to [place] 09/08/2018 to complete his IV antibiotic therapy. The patient was seen on morning rounds. He was found resting in bed comfortably on room air. The patient reports nightly sweats; through his clothing and sheets followed by dramatic shivering. Nursing does describe observed rigors this morning though patient was found to only have a temperature of 99.2. The patient denies new symptoms, although with flat affect and not very engaging disposition. He specifically denies cellulitis to his groin (previous cardiac cath insertion points), dysuria, abdominal pain, nausea vomiting, chest pain, dyspnea, and cough. He states that he just feels unwell. He has no other questions or concerns at this time. Nursing reports they are concerned that he is developing a new acute illness, though without specific symptoms at this time. Reason For Visit: INFECTIVE ENDOCARDITIS Physical Exam Vital Signs: Temp Pulse Resp BP Pulse Ox 100.8 F H 117 H 16 91/49 L 99 09/10/18 12:09 09/10/18 12:09 09/10/18 12:09 09/10/18 12:09 09/10/18 12:09 Intake & Output 09/09/18 09/10/18 09/11/18 06:59 06:59 06:59 Intake Total 150 1362 50 Balance 150 1362 50 Weight 54.2 kg 54 kg General appearance: PRESENT: no acute distress, disheveled, well-developed, well-nourished Head exam: PRESENT: atraumatic, normocephalic Eye exam: PRESENT: conjunctiva pink, EOMI, PERRLA. ABSENT: scleral icterus Ear exam: PRESENT: normal external ear exam Mouth exam: PRESENT: moist, tongue midline Neck exam: ABSENT: carotid bruit, JVD, lymphadenopathy, thyromegaly Respiratory exam: PRESENT: clear to auscultation neela, symmetrical, unlabored. ABSENT: rales, rhonchi, wheezes Cardiovascular exam: PRESENT: RRR, tachycardia. ABSENT: diastolic murmur, rubs, systolic murmur Pulses: PRESENT: normal dorsalis pedis pul Vascular exam: PRESENT: normal capillary refill GI/Abdominal exam: PRESENT: normal bowel sounds, soft. ABSENT: distended, guarding, mass, organolmegaly, rebound, tenderness Rectal exam: PRESENT: deferred Extremities exam: PRESENT: full ROM. ABSENT: calf tenderness, clubbing, pedal edema Neurological exam: PRESENT: alert, awake, oriented to person, oriented to place, oriented to time, oriented to situation, CN II-XII grossly intact. ABSENT: motor sensory deficit Psychiatric exam: PRESENT: flat affect, normal mood. ABSENT: homicidal ideation, suicidal ideation Skin exam: PRESENT: dry, intact, warm. ABSENT: cyanosis, rash Results Laboratory Results: 09/10/18 06:30 09/09/18 05:00 09/10/18 09/10/18 06:30 11:20 WBC 14.5 H RBC 3.46 L Hgb 9.9 L Hct 29.3 L MCV 85 MCH 28.6 MCHC 33.8 RDW 16.9 H Plt Count 330 Urine Color YELLOW Urine Appearance CLEAR Urine pH 5.0 Ur Specific [place] 1.012 Urine Protein NEGATIVE Urine Glucose (UA) NEGATIVE Urine Ketones NEGATIVE Urine Blood MODERATE H Urine Nitrite NEGATIVE Ur Leukocyte Esterase NEGATIVE Urine WBC (Auto) 1 Urine RBC (Auto) 1 Impressions: Chest X-Ray 09/10/18 00:00 IMPRESSION: Residual versus recurrent cavitary pneumonia left lower lobe. 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 Returned to [facility] to complete course of abx treatment. Unable to locate transfer summary or ID notes; have requested nursing to obtain new copies. Patient is diaphoretic, low-grade temp, with leukocytosis today. Repeat blood cultures pending. Continue Ancef 2 g every 6 hours through tomorrow. Have asked Infectious Disease to comment prior to discontinuing antibiotics secondary to patient's development of worsening leukocytosis accompanied with low-grade temperature, rigors, and diaphoresis. Patient will require infectious disease and cardiovascular surgery follow-up post discharge. (2) Septic pulmonary embolism Is this a current diagnosis for this admission?: Yes Plan: Patient is now maintaining oxygen saturations on room air. He denies dyspnea, orthopnea, cough, chest pain. Continue antibiotic regimen as above. (3) IV drug abuse Is this a current diagnosis for this admission?: Yes Plan: Patient with a long-standing history of IV drug abuse. Lifestyle modifications are encouraged. Patient declined mental health consultation. (4) Leukocytosis Is this a current diagnosis for this admission?: Yes Plan: He is withdrawn today and noted to have Temp 100.6, heart rate 117 and diaphoresis with WBC 14.5 this morning. It is unclear if this has been his recent clinical status related to #1 or is an indication of new or worsening problem. [facility] re-[facility]. Repeat blood cultures pending. Urinalysis is negative. Chest x-ray demonstrates recurrent versus residual LLL cavitary PNA Antibiotics as above. ID is consulted; appreciate Dr. Herrera's assistance. - Time Time Spent with patient: 15-24 minutes Medications reviewed and adjusted accordingly: Yes Anticipated discharge: Home Within: within 48 hours
--- NOTE | 2018-09-10 18:11 | Progress Note ---
Provider Note Provider Note: ID Consult Note Asked to review patient's chart by Lulú Yen NP. Pt not seen or examined. Mr. 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 He was seen by [facility] while at [facility] for evaluation of continued mildly elevated WBC and intermittent fevers. There was no other soure of infection appreciated. Leukocytosis and fevers appeared to be most likely secondary to his known disease process. He was admitted on 09/08/18 to [place] to continue his treatment course. He has been on room air. He has temperature up to 100.8 F, shivering and sweats and complains of feeling unwell. On exam, his lungs are clear to auscultation. His labs include an elevated WBC count of 14.5k. AP CXR was read as showing cavitary pneumonia in LLL. He had a CTA of the chest that was read as showing multiple b/l lower lobe predominant nodules and cavitary masses of b/l lungs and small associated pleural efusions and also in the pulmonary arteries there was segmental thrombus present in the L lower lobe, R middle lobe and RLL adjacent to the cavitary lesions. The projected end date for his 6 weeks of IV antibiotics for endocarditis is essentially complete at this point. Impression/Recommendations MSSA tricuspid valve IE, s/p debridement and 6 weeks of IV cefazolin Sequelae of septic pulmonary emboli with lung abscesses, due to the same - MSSA bacteremia has the potential to seed areas outside those originally involved, such as the spine, and if he has back pain that is out of the norm or point tenderness on palpation/percussion of his bony spine, then he would need an MRI to evaluate further. Sometimes vertebral discitis/osteomyelitis can declare itself while on therapy or after a patient has already completed treatment. In absence of signs/symptoms compatible with osteomyelitis/discitis, I do not think imaging the back would be indicated, however. It is just something that needs to be kept in mind. - In absence of localizing signs or symptoms that point to a difficult to treat or deep seated focus of infection elsewhere, I do not think that the patient needs IV antibiotics for longer than his projected treatment course. He has been adequately treated for endocarditis. - The question at this point is what to do about the apperance of his lungs in conjunction with his constitutional signs/symptoms. He appears to have lung cavitary lesions with air fluid levels compatible with lung abscesses. If there are no localizing findings on history and exam to suggest foci of disease elsewhere, it may be that he requires a longer course of PO antibiotics for apparent lung abscesses. In this case, removing PICC line and transitioning the patient to PO Keflex 500 mg QID or PO Augmentin 500/125 mg TID might be the most reasonable course of action. The duration of treatment is not pre-determined for lung abscesses. Can take several weeks (another 4-8 weeks?) to get to a point where there are small stable lesions, at which point treatment can be stopped. Jaime Herrera MD [facility] Infectious Diseases pager [phone]
[2018-09-10] MEDS ORDERED: NORMAL SALINE 1000 ML 2,000 ML IV ONE (18:45)
[2018-09-10] MEDS ORDERED: VANCOMYCIN HCL 0 MG in DEXTROSE 5%-WATER 250 ML IV NR (18:45)
[2018-09-10] MEDS ORDERED: NORMAL SALINE 1000 ML 1,000 ML IV ONE ×2 (20:00→20:30)
[2018-09-10] MEDS: NORMAL SALINE 1000 ML 1,000 ML IV PRN (22:08)
[2018-09-10] MEDS ORDERED: VANCOMYCIN HCL INJ 1000 MG VIAL ONE (22:36)
[2018-09-10] MEDS: VANCOMYCIN HCL 750 MG in DEXTROSE 5%-WATER 250 ML IV SCH (23:07)
[2018-09-11] MEDS ORDERED: HALOPERIDOL LACTATE INJ 5 MG/1 ML VIAL IV ONE (01:04)
[2018-09-11] MEDS ORDERED: NORMAL SALINE 1000 ML 1,000 ML IV SCH (01:15)
[2018-09-11] MEDS: CEFAZOLIN 2 GM/D5W RTU 2 GM/50 ML RTUPB IV SCH ×4 (01:50→18:22)
[2018-09-11] MEDS: HYDROMORPHONE HCL 2 MG TABLET PO PRN ×3 (03:27→23:10)
[2018-09-11] MEDS: NORMAL SALINE 1000 ML 1,000 ML IV PRN ×2 (04:51→15:57)
[2018-09-11] MEDS ORDERED: VANCOMYCIN HCL INJ 1000 MG VIAL ONE ×2 (05:32→22:27)
[2018-09-11] MEDS ORDERED: ALTEPLASE INJ 2 MG VIAL (CATH CLEARANCE) IV ONE (06:45)
[2018-09-11] MEDS: VANCOMYCIN HCL 750 MG in DEXTROSE 5%-WATER 250 ML IV SCH ×3 (07:04→23:11)
[2018-09-11 08:04] LABS: HEMATOCRIT 23.5 % (37.9-51.0); MEAN CORPUSCULAR HEMOGLOBIN 28.4 pg (27.0-33.4); MEAN CORPUSCULAR HGB CONC 33.5 g/dL (32.0-36.0); MEAN CORPUSCULAR VOLUME 85 fl (80-97); PLATELET COUNT 243 10^3/uL (150-450); RED BLOOD COUNT 2.77 10^6/uL (4.35-5.55); RED CELL DISTRIBUTION WIDTH 16.8 % (11.5-14.0); WHITE BLOOD COUNT 14.4 10^3/uL (4.0-10.5)
[2018-09-11 08:07] LABS: HEMOGLOBIN 7.9 g/dL (13.5-17.0)
[2018-09-11] MEDS ORDERED: IBUPROFEN 600 MG TABLET PO PRN (08:26)
[2018-09-11] MEDS ORDERED: NORMAL SALINE 1000 ML 1,000 ML IV PRN (08:28)
[2018-09-11] MEDS: FONDAPARINUX SODIUM INJ 2.5 MG/0.5 ML DISP.SYRIN SUBCUT SCH (09:58)
[2018-09-11] MEDS: FERROUS SULFATE 325 MG TABLET PO SCH (09:59)
[2018-09-11] MEDS: ASPIRIN 325 MG TABLET PO SCH (10:01)
[2018-09-11] MEDS: QUETIAPINE FUMARATE 100 MG TABLET PO SCH ×2 (10:01→17:55)
[2018-09-11] MEDS: BUSPIRONE HCL 10 MG TABLET PO SCH ×2 (10:02→17:55)
[2018-09-11] MEDS: METOPROLOL TARTRATE 50 MG TABLET PO SCH (10:02)
--- NOTE | 2018-09-11 10:07 | XCELERA REPORT ---
[address] [address] Transthoracic Echocardiogram Report Name: LISS BEACH Age: 22 yrs Gender: Male : 1995 Patient Status: Inpatient Patient Location: [facility]^A Study Date: 09/11/2018 08:38 AM Height: 60 in Weight: 117 lb BSA: 1.5 m2 Reason For Study: Endocarditis (known veg TV) Ordering Physician: MAC SEAY Performed By: Bronson Farias Interpretation Summary Study quality fair with some suboptimal images. Lack of contrast limits evaluation for intracardiaac mass/ thrombus. LV aappears hyperdynamic in a state of tachycardia with LVEF visually estimated at 50-55%. RV visually appears mildly dilated with RV systolic function appearing normal. AV appears to open well. Independently mobile echodensity noted atttached to TV leaflets consistent with known vegeetation with severe tricuspid regurgitation. RV to RA gradient noted at 36.3 mm Hg. There is no pericardial effusion. The aortic root is normal size. IVC normal sized. MMode/2D Measurements & Calculations RVDd: 3.1 cm LVIDd: 2.6 cm FS: -15.6 % Ao root diam: 2.8 cm IVSd: 2.8 cm LVIDs: 3.0 cm EDV(Teich): 24.1 mlAo root area: LVPWd: 0.74 cm ESV(Teich): 34.4 ml 6.2 cm2 EF(Teich): -42.9 % LA dimension: 2.3 cm LVOT diam: 2.1 cm LVLd ap4: 7.6 cm SV(MOD-sp4): LVOT area: EDV(MOD-sp4): 48.0 ml 87.0 ml 3.3 cm2 LVLs ap4: 6.8 cm ESV(MOD-sp4): 39.0 ml EF(MOD-sp4): 55.2 % Doppler Measurements & Calculations MV E max inga: MV P1/2t max inga: Ao V2 max: LV V1 max P.7 cm/sec 131.4 cm/sec 132.0 cm/sec 4.2 mmHg MV A max inga: MV P1/2t: 59.8 msec Ao max P.0 mmHgLV V1 max: 50.3 cm/sec MVA(P1/2t): 3.7 cm2 ELOY(V,D): 2.6 cm2 102.7 cm/sec MV E/A: 2.0 MV dec slope: 643.4 cm/sec2 MV dec time: 0.14 sec PA V2 max: TR max inga: MV P1/2t-pr_phl: 124.9 cm/sec 285.0 cm/sec 59.8 msec PA max PG: TR max P.5 mmHg 6.2 mmHg Left Ventricle The left ventricle is hyperdynamic. LV EF is 50-55%. Right Ventricle RV to RA gradient was noted at 36.3 mm Hg. The right ventricular systolic function is normal. Atria The left atrial size is normal. Mitral Valve MV leaflets not well visualized but appear to open well. Aortic Valve AV not well visualized but appears trileaflet. There is a peak gradient of 7 mm of Hg. Tricuspid Valve Independently mobile echodensity noted atttached to TV leaflets consistent with known vegeetation. There is a severe amount of tricuspid regurgitation. Pulmonic Valve The pulmonic valve is not well visualized. Great Vessels The aortic root is normal size. IVC normal sized. Effusions There is no pericardial effusion. : MAC SEAY Sanjay
[2018-09-11] MEDS: ACETAMINOPHEN 325 MG TABLET PO PRN (10:43)
[2018-09-11] MEDS ORDERED: NORMAL SALINE 1000 ML 1,000 ML IV ONE (12:15)
[2018-09-11] MEDS ORDERED: NORMAL SALINE 250 ML IV PRN ×2 (12:48)
--- NOTE | 2018-09-11 13:47 | PDOC PROGRESS REPORT ---
Subjective Progress Note for:: 09/11/18 Subjective:: LISS BEACH is a 22 year old male with past medical history of depression IV drug abuse with methamphetamine and heroin who was admitted on July 27 with a diagnosis of infective endocarditis and septic pulmonary emboli. He was subsequently transferred to [facility] where he underwent right-sided cath with Angiovac debridement x2. He is not a candidate for surgical valve repair. He returned to [facility] 09/08/2018 to complete his IV antibiotic therapy. The patient was seen on morning rounds. He was found resting in bed comfortably on room air. The patient reports continued fever, chills, and nightly sweats. He continues to deny other new symptoms. He specifically denies chest pain, dyspnea, cough, chest wall pain, large joint or back pain, cellulitis to his groin (previous cardiac cath insertion points), dysuria, abdominal pain, nausea and vomiting. He is informed of the plan to remove his PICC line, escalate antibiotics and obtain repeat echo today. He has no questions or concerns at this time. Reason For Visit: INFECTIVE ENDOCARDITIS Physical Exam Vital Signs: Temp Pulse Resp BP Pulse Ox 100.2 F 103 H 16 96/30 L 97 09/11/18 12:00 09/11/18 12:00 09/11/18 12:00 09/11/18 12:00 09/11/18 12:00 Intake & Output 09/10/18 09/11/18 09/12/18 06:59 06:59 06:59 Intake Total 1362 4280 300 Balance 1362 4280 300 Weight 54 kg 53.1 kg General appearance: PRESENT: no acute distress, well-developed, well-nourished Head exam: PRESENT: atraumatic, normocephalic Eye exam: PRESENT: conjunctiva pink, EOMI, PERRLA. ABSENT: scleral icterus Mouth exam: PRESENT: moist, tongue midline Neck exam: ABSENT: carotid bruit, JVD, lymphadenopathy, thyromegaly Respiratory exam: PRESENT: clear to auscultation neela, symmetrical, tachypnea, unlabored. ABSENT: rales, rhonchi, wheezes Cardiovascular exam: PRESENT: RRR, tachycardia - HR 140. ABSENT: diastolic murmur, rubs, systolic murmur Pulses: PRESENT: normal dorsalis pedis pul Vascular exam: PRESENT: normal capillary refill GI/Abdominal exam: PRESENT: normal bowel sounds, soft. ABSENT: distended, guarding, mass, organolmegaly, rebound, tenderness Rectal exam: PRESENT: deferred Extremities exam: PRESENT: full ROM. ABSENT: calf tenderness, clubbing, pedal edema Neurological exam: PRESENT: alert, awake, oriented to person, oriented to place, oriented to time, oriented to situation, CN II-XII grossly intact. ABSENT: motor sensory deficit Psychiatric exam: PRESENT: flat affect, normal mood. ABSENT: homicidal ideation, suicidal ideation Skin exam: PRESENT: dry, intact, warm. ABSENT: cyanosis, rash Results Laboratory Results: 09/11/18 07:04 09/09/18 05:00 09/11/18 09/11/18 06:15 07:04 WBC Cancelled 14.4 H RBC Cancelled 2.77 L Hgb Cancelled 7.9 L Hct Cancelled 23.5 L MCV Cancelled 85 MCH Cancelled 28.4 MCHC Cancelled 33.5 RDW Cancelled 16.8 H Plt Count Cancelled 243 Impressions: Chest X-Ray 09/10/18 00:00 IMPRESSION: Residual versus recurrent cavitary pneumonia left lower lobe. Assessment & Plan - Diagnosis (1) Sepsis Qualifiers: Sepsis type: sepsis due to unspecified organism Qualified Code(s): A41.9 - Sepsis, unspecified organism Is this a current diagnosis for this admission?: Yes Plan: Sepsis 2 criteria, likely due to endocarditis (MSSA), present on arrival, evidenced by fever, (100.0 at time of admission; transfer summary from [facility] reveals the patient has been running a temperature of 102.1 for the previous 2 days), tachycardia (HR 119), and leukocytosis (WBC 12.8). Despite continuing the appropriate course of Ancef; the patient clinically worsened over the following 2 days with development of diaphoresis, rigors, temperature 103.1, tachycardia (HR 143), hypotension despite 2 L NS bolus (96/30), and worsening leukocytosis (WBC 14.5). Chest xray revealed recurrent versus resolving left lower lobe cavitary lesion. Urinalysis was negative for UTI. Lactic acid 1.0 No evidence of cellulitis. Blood culture obtained from the PICC line is growing gram-positive cocci in clusters and gram-negative rods. Peripheral blood cultures are pending. PICC line has been removed; catheter tip is being cultured. The patient is upgraded to IMCU. He has provided additional fluid boluses followed by maintenance fluids. Hgb is trending down; will transfuse 1 unit PRBC. Continue IV vancomycin. Infectious disease consulted; will need to contact Dr. Herrera on Thursday to discuss his worsening status. Analgesics and antipyretics as needed. 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 Returned to [facility] to complete course of abx treatment. Repeat blood cultures (09/10/18) show gram (+) cocci in clusters and 'yellow' gram (-) rods from PICC line. Peripheral Blood cultures obtained today. 2D Echo (09/11/18) demonstrates LVEF 50-55%. Confirmed vegetations attached to the tricuspid valve leaflets; severe TV regurgitation. Continue Ancef 2 g every 6 hours. Started on Vancomycin 09/10/18. Have asked Infectious Disease to comment prior to discontinuing antibiotics secondary to patient's development of worsening leukocytosis accompanied with low-grade temperature, rigors, and diaphoresis. Appreciate Dr. Herrera's assistance, unfortunately, the patient developed high grade temp and clear evidence of sepsis after her chart review/recommendations. Patient will require infectious disease and cardiovascular surgery follow-up post discharge. (3) Septic pulmonary embolism Is this a current diagnosis for this admission?: Yes Plan: Patient is now maintaining oxygen saturations on room air. He denies dyspnea, orthopnea, cough, chest pain. CXR shows residual vs recurrent cavitary PNA. Continue antibiotic regimen as above. (4) IV drug abuse Is this a current diagnosis for this admission?: Yes Plan: Patient with a long-standing history of IV drug abuse. Lifestyle modifications are encouraged. Patient declined mental health consultation. (5) Leukocytosis Is this a current diagnosis for this admission?: Yes Plan: Repeat blood cultures (09/10/18) from PICC show gram positive cocci and gram negative rods. Blood culture (09/11/18) from peripheral site are pending. PICC line tip culture is pending. Urinalysis is negative. Chest x-ray demonstrates recurrent versus residual LLL cavitary PNA 2D echo (09/11/18) confirms persistent TV vegitations. Antibiotics as above. ID is consulted; appreciate Dr. Herrera's assistance. - Time Time Spent with patient: 35 or more minutes Medications reviewed and adjusted accordingly: Yes - Inpatient Certification Based on my medical assessment, after consideration of the patient's comorbidities, presenting symptoms, or acuity I expect that the services needed warrant INPATIENT care.: Yes I certify that my determination is in accordance with my understanding of Medicare's requirements for reasonable and necessary INPATIENT services [42 CFR 412.3e].: Yes Medical Necessity: Need Close Monitoring Due to Risk of Patient Decompensation, Need For IV Fluids, Need For Continuous Telemetry Monitoring, Need for IV Antibiotics, Risk of Complication if Not Cared For in Hospital - Plan Summary Plan Summary: Patient's vital signs, exam, lab work, culture results, and plan of care reviewed and developed with Dr. Evans.
[2018-09-11] MEDS ORDERED: METOPROLOL TARTRATE 50 MG TABLET PO SCH (18:00)
[2018-09-12] MEDS ORDERED: VANCOMYCIN HCL INJ 1000 MG VIAL ONE (00:51)
[2018-09-12] MEDS: CEFAZOLIN 2 GM/D5W RTU 2 GM/50 ML RTUPB IV SCH ×4 (01:05→17:26)
[2018-09-12] MEDS: HYDROMORPHONE HCL 2 MG TABLET PO PRN ×4 (05:14→23:27)
[2018-09-12] MEDS: VANCOMYCIN HCL 750 MG in DEXTROSE 5%-WATER 250 ML IV SCH ×3 (05:17→21:00)
[2018-09-12] MEDS: FONDAPARINUX SODIUM INJ 2.5 MG/0.5 ML DISP.SYRIN SUBCUT SCH (09:09)
[2018-09-12] MEDS: ASPIRIN 325 MG TABLET PO SCH (09:27)
[2018-09-12] MEDS: FERROUS SULFATE 325 MG TABLET PO SCH (09:27)
[2018-09-12] MEDS: BUSPIRONE HCL 10 MG TABLET PO SCH ×2 (09:27→17:26)
[2018-09-12] MEDS: QUETIAPINE FUMARATE 100 MG TABLET PO SCH ×2 (09:27→17:26)
[2018-09-12] MEDS: NORMAL SALINE 1000 ML 1,000 ML IV PRN ×3 (09:29→23:25)
--- NOTE | 2018-09-12 17:03 | PDOC PROGRESS REPORT ---
Subjective Progress Note for:: 09/12/18 Subjective:: No adverse events overnight. No new complaints. He is been afebrile since yesterday. He is not had much of an appetite. The nurses were able to convince him to clean himself up today. Reason For Visit: INFECTIVE ENDOCARDITIS Physical Exam Vital Signs: Temp Pulse Resp BP Pulse Ox 98.0 F 95 16 115/68 100 09/12/18 07:25 09/12/18 07:25 09/12/18 07:25 09/12/18 07:25 09/12/18 07:25 Intake & Output 09/11/18 09/12/18 09/13/18 06:59 06:59 06:59 Intake Total 4280 4992 750 Balance 4280 4992 750 Weight 53.1 kg 54.9 kg General appearance: PRESENT: no acute distress. ABSENT: cooperative Respiratory exam: PRESENT: clear to auscultation neela, symmetrical, unlabored. ABSENT: accessory muscle use, prolonged expiratory phas, rales, rhonchi, tachypnea, wheezes Cardiovascular exam: PRESENT: RRR, +S1, +S2 Pulses: PRESENT: normal carotid pulses Vascular exam: PRESENT: normal capillary refill GI/Abdominal exam: PRESENT: normal bowel sounds, soft. ABSENT: distended, guarding, rebound, tenderness Extremities exam: ABSENT: clubbing, pedal edema Musculoskeletal exam: PRESENT: normal inspection. ABSENT: deformity Neurological exam: PRESENT: alert, awake, oriented to person, oriented to place, oriented to time, oriented to situation Psychiatric exam: PRESENT: flat affect Skin exam: PRESENT: dry, warm Results Laboratory Results: 09/11/18 07:04 09/09/18 05:00 Impressions: Chest X-Ray 09/10/18 00:00 IMPRESSION: Residual versus recurrent cavitary pneumonia left lower lobe. 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 Her paper supervisor recommended that if something needs to be done with his heart valve, that we should send him somewhere besides violent, because when they looked at them they did not think anything else should be done. It is noted that when he was transferred back here, they transferred him with a temperature of 102 F (2) Gram-negative bacteremia Is this a current diagnosis for this admission?: Yes Plan: His PICC line was pulled and the tip was cultured, and it is growing out a gram- negative organism. This was done because 1 of his blood cultures that was done here turned positive for gram-negative organism. Because he seems to be responding at this point to his current treatment, his antibiotics have not been adjusted, and will wait until his cultures come back before changing his regimen, unless infectious disease thinks differently, or unless he deteriorates. (3) IV heroin addiction Is this a current diagnosis for this admission?: Yes Plan: He does not seem interested in quitting. - Time Time Spent with patient: 25-34 minutes
[2018-09-13] MEDS ORDERED: HALOPERIDOL LACTATE INJ 5 MG/1 ML VIAL IV ONE (01:00)
[2018-09-13] MEDS ORDERED: CEFAZOLIN 2 GM/D5W RTU 2 GM/50 ML RTUPB IV ONE ×2 (01:34→06:15)
[2018-09-13] MEDS: CEFAZOLIN 2 GM/D5W RTU 2 GM/50 ML RTUPB IV SCH ×4 (01:48→17:28)
[2018-09-13] MEDS: HYDROMORPHONE HCL 2 MG TABLET PO PRN ×3 (06:45→20:04)
[2018-09-13 07:21] LABS: VANCOMYCIN,TROUGH 7.4 ug/mL (5.0-20.0)
[2018-09-13] MEDS: VANCOMYCIN HCL 750 MG in DEXTROSE 5%-WATER 250 ML IV SCH (07:27)
[2018-09-13] MEDS: NORMAL SALINE 1000 ML 1,000 ML IV PRN ×2 (07:31→17:28)
[2018-09-13] MEDS: FONDAPARINUX SODIUM INJ 2.5 MG/0.5 ML DISP.SYRIN SUBCUT SCH (08:11)
[2018-09-13] MEDS: ASPIRIN 325 MG TABLET PO SCH (09:53)
[2018-09-13] MEDS: BUSPIRONE HCL 10 MG TABLET PO SCH ×2 (09:53→17:28)
[2018-09-13] MEDS: QUETIAPINE FUMARATE 100 MG TABLET PO SCH ×2 (09:53→17:28)
[2018-09-13] MEDS: FERROUS SULFATE 325 MG TABLET PO SCH (09:53)
[2018-09-13] MEDS: VANCOMYCIN HCL 1,000 MG in DEXTROSE 5%-WATER 250 ML IV SCH ×2 (14:33→22:04)
[2018-09-13 16:42] LABS: ABSOLUTE EOSINOPHILS # (AUTO) 0.2 10^3/uL (0.0-0.6); ABSOLUTE LYMPHOCYTES (AUTO) 2.9 10^3/uL (0.5-4.7); ABSOLUTE MONOCYTES (AUTO) 0.7 10^3/uL (0.1-1.4); ABSOLUTE NEUT (AUTO) 6.1 10^3/uL (1.7-8.2); BASOPHILS % (AUTO) 0.5 % (0-2); EOSINOPHILS % (AUTO) 1.9 % (0-6); HEMATOCRIT 27.8 % (37.9-51.0); HEMOGLOBIN 9.6 g/dL (13.5-17.0); LYMPHOCYTES % (AUTO) 29.3 % (13-45); MEAN CORPUSCULAR HEMOGLOBIN 28.9 pg (27.0-33.4); MEAN CORPUSCULAR HGB CONC 34.5 g/dL (32.0-36.0); MEAN CORPUSCULAR VOLUME 84 fl (80-97); MONOCYTES % (AUTO) 7.2 % (3-13); PLATELET COUNT 199 10^3/uL (150-450); RED BLOOD COUNT 3.32 10^6/uL (4.35-5.55); RED CELL DISTRIBUTION WIDTH 16.2 % (11.5-14.0); SEGMENTED NEUTROPHILS % (AUTO) 61.1 % (42-78); TOTAL CELLS COUNTED % (AUTO) 100 %; WHITE BLOOD COUNT 9.9 10^3/uL (4.0-10.5)
[2018-09-13 17:09] LABS: ALANINE AMINOTRANSFERASE 18 U/L (21-72); ALBUMIN 2.9 g/dL (3.5-5.0); ALKALINE PHOSPHATASE 94 U/L (38-126); ANION GAP 12 (5-19); ASPARTATE AMINO TRANSFERASE 15 U/L (17-59); BILIRUBIN,DIRECT 0.3 mg/dL (0.0-0.4); BILIRUBIN,TOTAL 0.3 mg/dL (0.2-1.3); BLOOD UREA NITROGEN 4 mg/dL (7-20); CALCIUM 8.9 mg/dL (8.4-10.2); CARBON DIOXIDE 19 mmol/L (22-30); CHLORIDE 112 mmol/L (98-107); GLUCOSE 116 mg/dL (75-110); POTASSIUM 3.4 mmol/L (3.6-5.0); SODIUM 143.2 mmol/L (137-145); TOTAL PROTEIN 5.5 g/dL (6.3-8.2)
--- NOTE | 2018-09-13 17:32 | PDOC PROGRESS REPORT ---
Subjective Progress Note for:: 09/13/18 Subjective:: 09/13/2018-. Patient is still having the low-grade fevers the culture from the PICC line tip came back gram-negative rods on blood culture positive for gram- negative rods. Culture tip also showing Beronica albicans. Patient found to be snorting Dilaudid in his room. Comfortably in the bed sleeping denies any problems. Spoke to cardiothoracic team and vidant today the recommendation is to do the CT chest to look for any pulmonary abscesses and if he still having fevers and blood cultures are continues to be positive they want me to call them back tomorrow to be transferred up there. In time the recommendation is to continue the antibiotic therapy. Reason For Visit: INFECTIVE ENDOCARDITIS Physical Exam Vital Signs: Temp Pulse Resp BP Pulse Ox 98.8 F 115 H 20 131/84 H 100 09/13/18 11:17 09/13/18 14:00 09/13/18 11:17 09/13/18 11:17 09/13/18 11:17 Intake & Output 09/12/18 09/13/18 09/14/18 06:59 06:59 06:59 Intake Total 4992 4302 1954 Balance 4992 4302 1954 Weight 54.9 kg 58 kg General appearance: PRESENT: no acute distress Head exam: PRESENT: atraumatic Eye exam: PRESENT: PERRLA Mouth exam: PRESENT: moist, tongue midline Neck exam: ABSENT: carotid bruit, JVD, lymphadenopathy, thyromegaly Respiratory exam: PRESENT: clear to auscultation neela. ABSENT: rales, rhonchi, wheezes Cardiovascular exam: PRESENT: systolic murmur, tachycardia GI/Abdominal exam: PRESENT: normal bowel sounds, soft. ABSENT: distended, guard ing, mass, organolmegaly, rebound, tenderness Extremities exam: PRESENT: full ROM. ABSENT: calf tenderness, clubbing, pedal edema Neurological exam: PRESENT: alert, awake, oriented to person, oriented to place, oriented to time, oriented to situation, CN II-XII grossly intact. ABSENT: motor sensory deficit Psychiatric exam: PRESENT: appropriate affect, normal mood. ABSENT: homicidal ideation, suicidal ideation Results Laboratory Results: 09/13/18 16:30 09/13/18 16:30 09/13/18 09/13/18 16:30 16:30 WBC 9.9 RBC 3.32 L Hgb 9.6 L Hct 27.8 L MCV 84 MCH 28.9 MCHC 34.5 RDW 16.2 H Plt Count 199 Seg Neutrophils % 61.1 Lymphocytes % 29.3 Monocytes % 7.2 Eosinophils % 1.9 Basophils % 0.5 Absolute Neutrophils 6.1 Absolute Lymphocytes 2.9 Absolute Monocytes 0.7 Absolute Eosinophils 0.2 Absolute Basophils 0.0 Sodium 143.2 Potassium 3.4 L Chloride 112 H Carbon Dioxide 19 L Anion Gap 12 BUN 4 L Creatinine 0.45 L Est GFR ( Amer) > 60 Est GFR (Non-Af Amer) > 60 Glucose 116 H Calcium 8.9 Magnesium 1.6 Total Bilirubin 0.3 AST 15 L ALT 18 L Alkaline Phosphatase 94 Total Protein 5.5 L Albumin 2.9 L Impressions: Chest X-Ray 09/10/18 00:00 IMPRESSION: Residual versus recurrent cavitary pneumonia left lower lobe. 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 Her legal collector recommended that if something needs to be done with his heart valve, that we should send him somewhere besides violent, because when they looked at them they did not think anything else should be done. It is noted that when he was transferred back here, they transferred him with a temperature of 102 F 09/13/2018-we repeated echocardiogram on Thursday shows a vegetation on the tricuspid valve with severe tricuspid regurgitation. I spoke to cardiothoracic team in [facility] with him and updated about cultures from the PICC line tip is positive for gram-negative rods and Beronica albicans and blood cultures are positive for gram-negative rods and staph epidermidis the recommendation is to do the CT and if the cultures are persistently positive and continue to have fever they may take him back to [facility] for possible surgery tomorrow. Appreciate their concern about the patient. (2) Sepsis Is this a current diagnosis for this admission?: Yes Plan: His PICC line was pulled and the tip was cultured, and it is growing out a gram-negative organism. This was done because 1 of his blood cultures that was done here turned positive for gram-negative organism. Because he seems to be responding at this point to his current treatment, his antibiotics have not been adjusted, and will wait until his cultures come back before changing his regimen, unless infectious disease thinks differently, or unless he deteriorates. 09/13/2018-patient is running low at care fever blood cultures are positive for gram-negative sounds and staph epidermidis and echocardiogram prior to visitation and patient has sepsis. Presently on cefazolin and vancomycin. I am going to put him on Diflucan. (3) IV heroin addiction Is this a current diagnosis for this admission?: Yes Plan: 09/13 patient history of IV drug abuse-patient is found to be snorting Dilaudid in the hospital room. Counseling was provided to the patient. A consult was requested. (4) Pneumonia Qualifiers: Pneumonia type: due to unspecified organism Laterality: bilateral Lung location: unspecified part of lung Qualified Code(s): J18.9 - Pneumonia, unspecified organism Is this a current diagnosis for this admission?: Yes Plan: Latest chest x-ray suggestive of residual versus recurrent cavitary pneumonia left lower lobe. As per cardiothoracic recommendations we are going to do the CTA of the chest for further evaluation. Plan is to continue the present management. - Time Time Spent with patient: 35 or more minutes Smoking Cessation Education: over 10 minutes Medications reviewed and adjusted accordingly: Yes Anticipated discharge: [facility]
[2018-09-13] MEDS ORDERED: DEXAMETHASONE SOD PHOS INJ 10 MG/1 ML VIAL IV SCH (18:00)
--- NOTE | 2018-09-13 18:49 | Progress Note ---
Provider Note Provider Note: ID Consult Note Asked to review patient's chart by Lulú Yen NP. Pt not seen or examined. Over the weekend, the patient's blood cultures returned showing growth of a Gram negative william and Staphylococcus epidermidis from a PICC line draw on 09/09 and Beronica albicans and a Gram negative william from the PICC catheter tip from 09/11. No peripheral blood cultures were drawn at the same time. Repeat blood cultures from 09/11 have no growth. Pt had fever up to 103 F on 09/11. He has not had any since then, which is when PICC was removed. Pt is still abusing opiates in the hospital. Impression/Recommendations 1. Endocarditis due to MSSA, tricuspid valve - this has been adequately treated. Residual vegetation can be seen after treatment. 2. There are cavitary lung lesions on CT scan that look like pulmonary abscesses. They are most likely due to MSSA if they evolved from the septic pulmonary infarcts. Would continue treating with an agent active against MSSA. 3. Polymicrobial PICC line infection with methicillin-resistant Staphylococcus epidermidis (MRSE), a Gram negative william, and C albicans - Definitive diagnosis of a catheter related bacteremia depends on getting cultures from both a peripheral stick and from off the line or from a peripheral stick and the catheter tip. The patient did not have peripheral blood cultures done at the same time as he had blood drawn from the PICC line, which grew a Gram negative william and Staph epi. The tip grew a Gram negative william and Beronica albicans. Even though definitive diagnosis cannot be made cleanly with the information at hand, pt had fever up to 103 F on 09/11, and abuse of PICC line is a concern in active IV drug users. He can have true polymicrobial bacteremia. - Pending identification of the Gram negative william, consider switching cefazolin to Zosyn. Can de-escalate when more is known. Zosyn would have activity against MSSA also. - Can continue vancomycin for now. - Fluconazole was ordered 100 mg to start tomorrow 09/14. Would give 600 mg as a loading dose followed by 400 mg daily. Jaime Herrera MD [facility] Infectious Diseases pager [phone]
--- NOTE | 2018-09-13 22:10 | RADIOLOGY REPORT (SQ) ---
EXAM DESCRIPTION: CT CHEST ANGIOGRAPHY WITHOUT THEN WITH IV CONTRAST, three-dimensional reconstructions COMPLETED DATE/TME: 09/13/2018 00:00 CLINICAL HISTORY: 22 years, Male, pulmonary septic emboli with abscess This exam was performed according to our departmental dose-optimization program which includes automated exposure control, adjustment of the mA and/or kVp according to patient size and/or use of iterative reconstruction technique where applicable. Compared to chest CT dated 07/29/2018. FINDINGS: Pulmonary arteries are well opacified with no significant filling defects in the pulmonary arterial tree to suggest acute pulmonary embolism. Aorta is within normal limits with no aneurysm. Mild mediastinal, subcarinal and bilateral hilar lymphadenopathy. No significant pericardial effusion. Small layering bilateral pleural effusions. The visualized upper abdominal organs are within normal limits. Evaluation of the lung parenchyma demonstrates trachea and major airways to be patent. Multifocal regions of airspace disease are noted, improved from the prior study with cavitary changes that are also improved. Cavitary changes are most dominant the right upper lobe and left lower lobe that all of these are improved. No significant new regions of pneumonia and cavitary changes. 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 This corresponds to a previous region of pulmonary embolism, which is recanalized but also likely caused a pseudoaneurysm. No evidence for active bleeding. IMPRESSION: Overall significant improvement in multifocal pneumonia and cavitation. No evidence for acute pulmonary embolism. Right lower lobe pulmonary arterial aneurysm/pseudoaneurysms is noted in the region of previously noted pulmonary embolism.
[2018-09-14] MEDS: CEFAZOLIN 2 GM/D5W RTU 2 GM/50 ML RTUPB IV SCH ×5 (00:01→23:53)
[2018-09-14] MEDS: HYDROMORPHONE HCL 2 MG TABLET PO PRN ×5 (01:53→22:19)
[2018-09-14] MEDS: VANCOMYCIN HCL 1,000 MG in DEXTROSE 5%-WATER 250 ML IV SCH ×3 (06:00→22:11)
[2018-09-14] MEDS: NORMAL SALINE 1000 ML 1,000 ML IV PRN (06:01)
[2018-09-14] MEDS: FONDAPARINUX SODIUM INJ 2.5 MG/0.5 ML DISP.SYRIN SUBCUT SCH (08:48)
[2018-09-14] MEDS: BUSPIRONE HCL 10 MG TABLET PO SCH ×2 (09:48→18:19)
[2018-09-14] MEDS: FERROUS SULFATE 325 MG TABLET PO SCH (09:48)
[2018-09-14] MEDS: ASPIRIN 325 MG TABLET PO SCH (09:49)
[2018-09-14] MEDS: QUETIAPINE FUMARATE 100 MG TABLET PO SCH (09:49)
[2018-09-14] MEDS ORDERED: FLUCONAZOLE 100 MG TABLET PO SCH (10:00)
--- NOTE | 2018-09-14 17:30 | PDOC PROGRESS REPORT ---
Subjective Progress Note for:: 09/14/18 Subjective:: 09/13/2018-. Patient is still having the low-grade fevers the culture from the PICC line tip came back gram-negative rods on blood culture positive for gram- negative rods. Culture tip also showing Beronica albicans. Patient found to be snorting Dilaudid in his room. Comfortably in the bed sleeping denies any problems. Spoke to cardiothoracic team and [place] today the recommendation is to do the CT chest to look for any pulmonary abscesses and if he still having fevers and blood cultures are continues to be positive they want me to call them back tomorrow to be transferred up there. In time the recommendation is to continue the antibiotic therapy. 08/17/2018-patient is having the low-grade fever T-max of 99.7 blood cultures done yesterday cultures are pending. CT scan done yesterday for pulmonary abscesses is reviewed by the infectious doctor Dr. Herrera she thinks significant improvement in the septic emboli and no pulmonary abscess is seen. Microbiology talk to Dr. Herrera they think they have suspicion for yeast in the blood cultures done on probably will get better picture tomorrow in the meantime Dr. Herrera wants me to start the patient on fluconazole 600 mg p.o. today and 400 mg daily from tomorrow. Continue the antibiotic therapy. Is complaining of increasing pain requesting Dilaudid IV every 4 hours as needed. As per Dr. Herrera's recommendations before starting the patient on fluconazole we going to do the EKG look for any QT interval ,I stopped Seroquel. Reason For Visit: INFECTIVE ENDOCARDITIS Physical Exam Vital Signs: Temp Pulse Resp BP Pulse Ox 98.5 F 87 16 123/86 H 100 09/14/18 11:54 09/14/18 14:00 09/14/18 11:54 09/14/18 11:54 09/14/18 11:54 Intake & Output 09/13/18 09/14/18 09/15/18 06:59 06:59 06:59 Intake Total 4302 5091 2012 Balance 4302 5099 2012 Weight 58 kg 60.7 kg General appearance: PRESENT: no acute distress, thin Head exam: PRESENT: atraumatic Mouth exam: PRESENT: moist, tongue midline Neck exam: ABSENT: carotid bruit, JVD, lymphadenopathy, thyromegaly Respiratory exam: PRESENT: clear to auscultation neela. ABSENT: rales, rhonchi, wheezes Cardiovascular exam: PRESENT: systolic murmur, tachycardia GI/Abdominal exam: PRESENT: normal bowel sounds, soft. ABSENT: distended, guarding, mass, organolmegaly, rebound, tenderness Extremities exam: PRESENT: full ROM. ABSENT: calf tenderness, clubbing, pedal edema Neurological exam: PRESENT: alert, awake, oriented to person, oriented to place, oriented to time, oriented to situation, CN II-XII grossly intact. ABSENT: motor sensory deficit Skin exam: PRESENT: erythema, other - Edema in the groin area. Results Laboratory Results: 09/13/18 16:30 09/13/18 16:30 Impressions: Chest X-Ray 09/10/18 00:00 IMPRESSION: Residual versus recurrent cavitary pneumonia left lower lobe. Chest/Abdomen CTA 09/13/18 00:00 IMPRESSION: Overall significant improvement in multifocal pneumonia and cavitation. No evidence for acute pulmonary embolism. Right lower lobe pulmonary arterial aneurysm/pseudoaneurysms is noted in the region of previously noted pulmonary embolism. 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 Her bundle collector recommended that if something needs to be done with his heart valve, that we should send him somewhere besides violent, because when they looked at them they did not think anything else should be done. It is noted that when he was transferred back here, they transferred him with a temperature of 102 F 09/13/2018-we repeated echocardiogram on Thursday shows a vegetation on the tricuspid valve with severe tricuspid regurgitation. I spoke to cardiothoracic team in [place] with him and updated about cultures from the PICC line tip is positive for gram-negative rods and Beronica albicans and blood cultures are positive for gram-negative rods and staph epidermidis the recommendation is to do the CT and if the cultures are persistently positive and continue to have fever they may take him back to [facility] for possible surgery tomorrow. A ppreciate their concern about the patient. 09/14/2018 plan is to continue the IV antibiotic therapy with vancomycin and cefazolin. As per ID recommendations started on fluconazole 600 mg today on 400 mg tomorrow because of the high suspicion for a blood cultures positive for yeast. T-max is 99.7. Repeat blood cultures today. (2) Sepsis Is this a current diagnosis for this admission?: Yes Plan: His PICC line was pulled and the tip was cultured, and it is growing out a gram- negative organism. This was done because 1 of his blood cultures that was done here turned positive for gram-negative organism. Because he seems to be responding at this point to his current treatment, his antibiotics have not been adjusted, and will wait until his cultures come back before changing his regimen, unless infectious disease thinks differently, or unless he deteriorates. 09/13/2018-patient is running low at [facility] fever blood cultures are positive for gram-negative sounds and staph epidermidis and echocardiogram prior to visitatio n and patient has sepsis. Presently on cefazolin and vancomycin. I am going to put him on Diflucan. 09/14/2018-the cultures from the PICC line on positive for gram-negative rods and Beronica, PICC line tip cultures on shows gram-negative rods and Beronica. Patient fevers are decided after taking of the PICC line. Waiting for the culture report from . We are going to follow the ID recommendations. Echocardiogram was done on Thursday shows vegetation on the tricuspid valve with severe tricuspid regurgitation. (3) IV heroin addiction Is this a current diagnosis for this admission?: Yes Plan: 09/13 patient history of IV drug abuse-patient is found to be snorting Dilaudid in the hospital room. Counseling was provided to the patient. A consult was requested. 09/14/2018 patient has history of IV drug abuse 2 days ago he was found to be snorting Dilaudid in the hospital room. We going to arrange for psych consult. (4) Pneumonia Qualifiers: Pneumonia type: due to unspecified organism Laterality: bilateral Lung location: unspecified part of lung Qualified Code(s): J18.9 - Pneumonia, unspecified organism Is this a current diagnosis for this admission?: Yes Plan: Latest chest x-ray suggestive of residual versus recurrent cavitary pneumonia left lower lobe. As per cardiothoracic recommendations we are going to do the CTA of the chest for further evaluation. Plan is to continue the present management. 09/14/2018-repeat CT scan done yesterday shows no pulmonary abscesses and improvement in the appearance of the pulmonary septic emboli. As per ID recommendations plan is to continue the present management. - Time Time Spent with patient: 15-24 minutes Medications reviewed and adjusted accordingly: Yes Anticipated discharge: Home
[2018-09-14] MEDS ORDERED: FLUCONAZOLE 100 MG TABLET PO ONE (18:30)
--- NOTE | 2018-09-14 18:50 | Progress Note ---
Provider Note Provider Note: ID Consult Note Reviewed patient's chart. Pt not seen or examined. 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 The patient was transfered to [facility] for these interventions and then back to [place] to complete the planned 6 week treatment course with cefazolin. He had a blood culture drawn off of the PICC line on 09/09, which yielded growth of a Gram negative william that has yet to be identified and also Staph epidermidis. No peripheral cultures were done at the same time. He had the PICC line removed on 09/11, which is also when he had fever up to 103 F. The PICC tip grew Beronica albicans and also a Gram negative william. Once the PICC was removed on 09/11, blood cultures were done from percutaneous sticks. These are negative x 72h, and he has had no further fever. I called the Micro lab today. There is no definitive growth that has been reported yet, but preliminarily there is some concern that a "Gram positive william" that appears to be more consistent with a yeast may be present in these cultures. This has yet to be officially reported because it requires further investigation. Impression/Recommendations 1. PICC line contamination vs true bloodstream infection - The blood drawn from the PICC on 09/09 that grew MRSE and a Gram negative william does not provide good evidence of bacteremia, only of PICC line contamination or colonization. The same is true for the PICC tip culture that grew yeast and a Gram negative william. In absence of peripheral blood cultures showing further g rowth, there is no clear significance to these results to say there absolutely must be some defined duration of therapy after the PICC removal when he has had no fevers after that point. - What I am concerned about is the verbally reported question of yeast from the peripheral blood cultures from 09/11. This is a result that needs further clarification and workup by the Microbiology lab. It is not officially reported. However, in combination with the patient having continued drug use and the PICC tip growing yeast, I think it is enough to initiate the higher dose of fluconazole as long as it can be done safely. - I would give the patient a higher dose of fluconazole today (total dose of 700 mg or ~12 mg/kg, check EKG given concurrent medications Seroquel and Zofran that can also prolong QTc) and then continue on 400 mg daily pending further information. 2. Lung abscesses due to septic pulmonary emboli from MSSA tricuspid valve endocarditis - CT scan repeated on 09/13; unsurprisingly, there are still some cavitary lesions, but no air-fluid levels are left and no new regions of lung involvement are present. - Fever on 09/11 is not likely to be related to the prior lung abscesses/septic emboli and MSSA tricuspid valve endocarditis, for which the patient has already received adequate management with tricuspid valve debridement and prolonged IV cefazolin. - Do not think there is a role for continuing cefazolin or giving further treatment aimed at MSSA. Would stop cefazolin. Jaime Herrera MD [facility] Infectious Diseases pager [phone]
[2018-09-14 20:16] LABS: ABSOLUTE BASOPHILS # (AUTO) 0.1 10^3/uL (0.0-0.2); ABSOLUTE EOSINOPHILS # (AUTO) 0.2 10^3/uL (0.0-0.6); ABSOLUTE LYMPHOCYTES (AUTO) 3.4 10^3/uL (0.5-4.7); BASOPHILS % (AUTO) 0.6 % (0-2); EOSINOPHILS % (AUTO) 2.2 % (0-6); HEMATOCRIT 25.9 % (37.9-51.0); LYMPHOCYTES % (AUTO) 35.1 % (13-45); MEAN CORPUSCULAR HGB CONC 34.7 g/dL (32.0-36.0); MEAN CORPUSCULAR VOLUME 84 fl (80-97); MONOCYTES % (AUTO) 10.3 % (3-13); PLATELET COUNT 184 10^3/uL (150-450); RED CELL DISTRIBUTION WIDTH 16.2 % (11.5-14.0); SEGMENTED NEUTROPHILS % (AUTO) 51.8 % (42-78); TOTAL CELLS COUNTED % (AUTO) 100 %; WHITE BLOOD COUNT 9.6 10^3/uL (4.0-10.5)
[2018-09-14 20:39] LABS: ANION GAP 7 (5-19); BLOOD UREA NITROGEN 2 mg/dL (7-20); CALCIUM 8.7 mg/dL (8.4-10.2); CARBON DIOXIDE 23 mmol/L (22-30); CHLORIDE 109 mmol/L (98-107); GLUCOSE 89 mg/dL (75-110); POTASSIUM 3.3 mmol/L (3.6-5.0); SODIUM 139.1 mmol/L (137-145)
--- NOTE | 2018-09-14 23:58 | EKG REPORT ---
SEVERITY:- NORMAL ECG - SINUS RHYTHM : Confirmed by: Virgilio Montilla 14-Sep-2018 23:57:21
[2018-09-15] MEDS: HYDROMORPHONE HCL 2 MG TABLET PO PRN ×6 (02:21→23:44)
[2018-09-15] MEDS: CEFAZOLIN 2 GM/D5W RTU 2 GM/50 ML RTUPB IV SCH ×2 (05:14→11:37)
[2018-09-15] MEDS: VANCOMYCIN HCL 1,000 MG in DEXTROSE 5%-WATER 250 ML IV SCH ×2 (06:02→15:11)
[2018-09-15 07:07] LABS: VANCOMYCIN,TROUGH 15.5 ug/mL (5.0-20.0)
[2018-09-15] MEDS: FONDAPARINUX SODIUM INJ 2.5 MG/0.5 ML DISP.SYRIN SUBCUT SCH (07:27)
[2018-09-15] MEDS: ASPIRIN 325 MG TABLET PO SCH (10:08)
[2018-09-15] MEDS: BUSPIRONE HCL 10 MG TABLET PO SCH ×2 (10:09→17:09)
[2018-09-15] MEDS: FERROUS SULFATE 325 MG TABLET PO SCH (10:09)
--- NOTE | 2018-09-15 16:25 | PSYCHOLOGICAL NOTE ---
Addendum entered and electronically signed by EMERSON MARTINEZ LCSWA 09/18/18 13:22: evaluation conducted on 09/15/2018 Patient reports he came to the hospital because he "knew something was wrong." He states that he had a high fever so asked "his people" to bring him to the hospital. He confirms has been in the hospital for a significant amount of time. He reports he has a diagnosis of bipolar and was seen at [facility] however admits that he is not been to [facility] in approximately 2 years. He states that he was thinking about following up with them. Patient confirms he is an IV drug user and states the last time he used was "the day before I came in." He states he normally uses heroin however does use meth on occasion. He reports he is not interested in sobriety stating "not using just makes me want to use more." He confirms he does not have a job currently however states that September 27 he has a job interview with the [employer]. Patient denies ever going inpatient psychiatric treatment and states he is never attempted to stop using drugs ie detox and/or treatment. Patient is alert and orientated to person, place, time and circumstance. Mood is euthymic with congruent affect. Patient denies suicidal homicidal ideation. Delusions are absent behaviors congruent with an intact reality based presentation i.e. organized and linear thought process. Eye contact is well- maintained. Conversational speech is within normal rate, tone and prosody. Intellectual abilities appear to be within the average range. Attention and concentration are good. Insight, judgment, impulse control are historically poor due to substance abuse. Original Note: Psych Note - Psych Note Date seen by psych provider: 09/15/18 Time seen by psych provider: 12:30 Psych Note: Reason for Consult: substance abuse impression/Plan: Patient is cleared from acute psychiatric services. Patient refuses assistance with sobriety reporting that he only wants to use drugs more when he is sober. Clinician conducted psychoeducation on the importance of his current medical condition in regards to his drug use. Patient reports he is fully aware that his current medical condition as a result of his IV drug use. He continues to confirm he understands the severity of his medical condition. He was willing to take resource information from clinician however again stated he was not interested in sobriety. Please re-consult if new concerns arise or patient would like to re-discuss treatment options. Dr. Terry was consulted to care management this patient; attending physicians in agreement with recommendations and disposition.
--- NOTE | 2018-09-15 17:01 | PDOC PROGRESS REPORT ---
Subjective Progress Note for:: 09/15/18 Subjective:: 09/13/2018-. Patient is still having the low-grade fevers the culture from the PICC line tip came back gram-negative rods on blood culture positive for gram- negative rods. Culture tip also showing Beronica albicans. Patient found to be snorting Dilaudid in his room. Comfortably in the bed sleeping denies any problems. Spoke to cardiothoracic team and [place] today the recommendation is to do the CT chest to look for any pulmonary abscesses and if he still having fevers and blood cultures are continues to be positive they want me to call them back tomorrow to be transferred up there. In time the recommendation is to continue the antibiotic therapy. 09/14/2018-patient is having the low-grade fever T-max of 99.7 blood cultures done yesterday cultures are pending. CT scan done yesterday for pulmonary abscesses is reviewed by the infectious doctor Dr. Herrera she thinks significant improvement in the septic emboli and no pulmonary abscess is seen. Microbiology talk to Dr. Herrera they think they have suspicion for yeast in the blood cultures done on probably will get better picture tomorrow in the meantime Dr. Herrera wants me to start the patient on fluconazole 600 mg p.o. today and 400 mg daily from tomorrow. Continue the antibiotic therapy. Is complaining of increasing pain requesting Dilaudid IV every 4 hours as needed. As per Dr. Herrera's recommendations before starting the patient on fluconazole we going to do the EKG look for any QT interval ,I stopped Seroquel. 09/15/2018-patient is still having the low-grade fevers T-max is 99. Blood cultures came back positive for Beronica. And cultures also positive for a spingomonas paucimobilis and Myroides. I spoke to infectious disease specialist Dr. Herrera from [facility] her recommendation is to ignore the rare organisms found in the blood culture. Cefazolin and vancomycin but continue fluconazole. In her recommendation patient need to be on fluconazole at least for 2 weeks. She is also said is okay for her for the patient to go to [place] to be reevaluated by the cardiothoracic surgeon. No acute events in the last 24 hours. I spoke to cardiothoracic surgeon and widened it to [place] around 5:40 PM today they willing to take the patient back when the bed is available to reevaluate him if they are not offering anything new pt going to come back here. I agree with the suggestion ,unfortunately no beds are available for the next 24-48 hours in [facility]. to send all the investigations including radiological reports, blood cultures lab work along with the patient to [place] when the bed is avilable. Reason For Visit: INFECTIVE ENDOCARDITIS Physical Exam Vital Signs: Temp Pulse Resp BP Pulse Ox 98.0 F 86 20 127/101 H 98 09/15/18 11:29 09/15/18 15:26 09/15/18 15:26 09/15/18 15:26 09/15/18 15:26 Intake & Output 09/14/18 09/15/18 09/16/18 06:59 06:59 06:59 Intake Total 5091 3063 300 Balance 5091 3063 300 Weight 60.7 kg General appearance: PRESENT: no acute distress Head exam: PRESENT: atraumatic Eye exam: PRESENT: PERRLA Mouth exam: PRESENT: moist, tongue midline Neck exam: ABSENT: carotid bruit, JVD, lymphadenopathy, thyromegaly Respiratory exam: PRESENT: decreased breath sounds Cardiovascular exam: PRESENT: systolic murmur, tachycardia GI/Abdominal exam: PRESENT: normal bowel sounds, soft. ABSENT: distended, guarding, mass, organolmegaly, rebound, tenderness Extremities exam: PRESENT: full ROM. ABSENT: calf tenderness, clubbing, pedal edema Neurological exam: PRESENT: alert, awake, oriented to person, oriented to place, oriented to time, oriented to situation, CN II-XII grossly intact. ABSENT: motor sensory deficit Psychiatric exam: PRESENT: appropriate affect, normal mood. ABSENT: homicidal ideation, suicidal ideation Results Laboratory Results: 09/14/18 19:33 09/15/18 05:57 09/14/18 09/14/18 09/14/18 19:33 19:33 19:33 WBC 9.6 RBC 3.10 L Hgb 9.0 L Hct 25.9 L MCV 84 MCH 29.0 MCHC 34.7 RDW 16.2 H Plt Count 184 Seg Neutrophils % 51.8 Lymphocytes % 35.1 Monocytes % 10.3 Eosinophils % 2.2 Basophils % 0.6 Absolute Neutrophils 5.0 Absolute Lymphocytes 3.4 Absolute Monocytes 1.0 Absolute Eosinophils 0.2 Absolute Basophils 0.1 Sodium 139.1 Potassium 3.3 L Chloride 109 H Carbon Dioxide 23 Anion Gap 7 BUN 2 L Creatinine 0.43 L Est GFR ( Amer) > 60 Est GFR (Non-Af Amer) > 60 Glucose 89 Lactic Acid 0.8 Calcium 8.7 09/15/18 05:57 WBC RBC Hgb Hct MCV MCH MCHC RDW Plt Count Seg Neutrophils % Lymphocytes % Monocytes % Eosinophils % Basophils % Absolute Neutrophils Absolute Lymphocytes Absolute Monocytes Absolute Eosinophils Absolute Basophils Sodium Potassium Chloride Carbon Dioxide Anion Gap BUN Creatinine 0.50 L Est GFR ( Amer) > 60 Est GFR (Non-Af Amer) > 60 Glucose Lactic Acid Calcium 09/11/18 13:00 Blood Blood Culture - Final C.albicans/C.dubliniensis 09/11/18 10:40 Catheter Tip - Picc Line Catheter Tip Culture - Final Sphingomonas Paucimobilis C.albicans/C.dubliniensis 09/09/18 13:45 Blood Blood Culture - Final Myroides (Flavo) Odoratus Staphylococcus Epidermidis Impressions: Chest X-Ray 09/10/18 00:00 IMPRESSION: Residual versus recurrent cavitary pneumonia left lower lobe. Chest/Abdomen CTA 09/13/18 00:00 IMPRESSION: Overall significant improvement in multifocal pneumonia and cavitation. No evidence for acute pulmonary embolism. Right lower lobe pulmonary arterial aneurysm/pseudoaneurysms is noted in the region of previously noted pulmonary embolism. 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 Her senior software engineering manager recommended that if something needs to be done with his heart valve, that we should send him somewhere besides violent, because when they looked at them they did not think anything else should be done. It is noted that when he was transferred back here, they transferred him with a temperature of 102 F 09/13/2018-we repeated echocardiogram on Thursday shows a vegetation on the tricuspid valve with severe tricuspid regurgitation. I spoke to cardiothoracic team in [place] with him and updated about cultures from the PICC line tip is positive for gram-negative rods and Beronica albicans and blood cultures are positive for gram-negative rods and staph epidermidis the recommendation is to do the CT and if the cultures are persistently positive and continue to have fever they may take him back to [facility] for possible surgery tomorrow. Appreciate their concern about the patient. 09/14/2018 plan is to continue the IV antibiotic therapy with vancomycin and cefazolin. As per ID recommendations started on fluconazole 600 mg today on 400 mg tomorrow because of the high suspicion for a blood cultures positive for yeast. T-max is 99.7. Repeat blood cultures today. 09/15/2018-as per ID recommendations will be going to stop vancomycin and cefazolin for now. Continue fluconazole for at least 2 weeks because the blood cultures are positive for Beronica. Patient is still having the low-grade fever. planning to do the blood cultures on daily basis. (2) Sepsis Is this a current diagnosis for this admission?: Yes Plan: His PICC line was pulled and the tip was cultured, and it is growing out a gram-negative organism. This was done because 1 of his blood cultures that was done here turned positive for gram-negative organism. Because he seems to be responding at this point to his current treatment, his antibiotics have not been adjusted, and will wait until his cultures come back before changing his r egimen, unless infectious disease thinks differently, or unless he deteriorates. 09/13/2018-patient is running low at [facility] fever blood cultures are positive for gram-negative sounds and staph epidermidis and echocardiogram prior to visitation and patient has sepsis. Presently on cefazolin and vancomycin. I am going to put him on Diflucan. 09/14/2018-the cultures from the PICC line on positive for gram-negative rods and Beronica, PICC line tip cultures on 16 shows gram-negative rods and Beronica. Patient fevers are decided after taking of the PICC line. Waiting for the culture report from . We are going to follow the ID recommendations. Echocardiogram was done on Thursday shows vegetation on the tricuspid valve with severe tricuspid regurgitation. 09/15/2018-the cultures from the PICC line came back gram-negative rods Spingomonos and myroids as per ID recommendations antibiotics are discontinued. Culture is also showing Beronica albicans plan is to continue fluconazole for at least 2 weeks. I spoke to cardiothoracic team in the [place], when the bed is available they are going to take him to reevaluate him. (3) IV heroin addiction Is this a current diagnosis for this admission?: Yes Plan: 09/13 patient history of IV drug abuse-patient is found to be snorting Dilaudid in the hospital room. Counseling was provided to the patient. A consult was requested. 09/14/2018 patient has history of IV drug abuse 2 days ago he was found to be snorting Dilaudid in the hospital room. We going to arrange for psych consult. 09/15/2018-patient has history of IV drug abuse psych consult was requested patient is refusing to cooperate. (4) Pneumonia Qualifiers: Pneumonia type: due to unspecified organism Laterality: bilateral Lung location: unspecified part of lung Qualified Code(s): J18.9 - Pneumonia, unspecified organism Is this a current diagnosis for this admission?: Yes Plan: Latest chest x-ray suggestive of residual versus recurrent cavitary pneumonia left lower lobe. As per cardiothoracic recommendations we are going to do the CTA of the chest for further evaluation. Plan is to continue the present management. 09/14/2018-repeat CT scan done yesterday shows no pulmonary abscesses and improvement in the appearance of the pulmonary septic emboli. As per ID recommendations plan is to continue the present management. 09/15/2018-repeat CT scan was done on 09/13/2018 he discharges development of pse udoaneurysm in the area of septic emboli seen in the prior CT scans. As mentioned above I discussed the report with our cardiothoracic surgeons danny. - Time Time Spent with patient: 15-24 minutes Medications reviewed and adjusted accordingly: Yes Anticipated discharge: [facility]
[2018-09-15] MEDS: FLUCONAZOLE 100 MG TABLET PO SCH (17:10)
[2018-09-15] MEDS: NYSTATIN CREAM 15 GM TP SCH (17:10)
--- NOTE | 2018-09-15 17:22 | Progress Note ---
Provider Note Provider Note: ID Consult - Brief Note Asked by Dr Brownlee to review patient's chart. Pt not seen or examined. Microbiology has been updated to reflect that Blood culture drawn from off of the PICC line on 09/09 grew Myroides odoratus and Staph epidermidis PICC catheter tip culture from 09/11 grew Beronica albicans and Sphingomonas paucimobilis Peripheral blood cultures from 09/11 have growth of Beronica albicans from one blood culture bottle only. Repeat peripheral blood cultures from 09/13 have no growth x 24h. Patient has had no fever since PICC was removed on 09/11. He received 700 mg fluconazole yesterday (~12 mg/kg). He is scheduled to continue treatment with 400 mg fluconazole today (~6 mg/kg). Impression/Recommendations 1. 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 2. With Staph epidermidis and these two Gram negative rods only being cultured from the PICC line or blood drawn off the PICC line and no fever since PICC line removal, there is no convincing evidence that the patient has a true bacteremia - only PICC line colonization or contamination for which PICC line removal was the appropriate intervention. No further therapy should be indicated. Would discontinue vancomycin. 3. With peripheral blood cultures having shown growth of Beronica albicans, in addition to the PICC tip showing this organism, it appears that the patient has had a catheter related candidemia, and he needs to be treated for 2 weeks from the date of negative blood cultures with fluconazole. I would continue to give him 400 mg PO fluconazole. If the blood cultures are negative from 09/13, the end date of fluconazole should be September 27. If it is possible to have an ophthalmology evaluation, this is recommended for all patients with candidemia to screen for endophthalmitis, which may affect management. Although acute problems are manageable, long-term prognosis is poor if patient is unable to stop IV drug use due to risk for overdose and further infectious complications. Jaime Herrera MD [facility] Infectious Diseases pager [phone]
[2018-09-16] MEDS: HYDROMORPHONE HCL 2 MG TABLET PO PRN ×5 (03:32→21:20)
[2018-09-16] MEDS: FONDAPARINUX SODIUM INJ 2.5 MG/0.5 ML DISP.SYRIN SUBCUT SCH (07:29)
--- NOTE | 2018-09-16 08:32 | PDOC PROGRESS REPORT ---
Subjective Subjective:: 09/13/2018-. Patient is still having the low-grade fevers the culture from the PICC line tip came back gram-negative rods on blood culture positive for gram- negative rods. Culture tip also showing Beronica albicans. Patient found to be snorting Dilaudid in his room. Comfortably in the bed sleeping denies any problems. Spoke to cardiothoracic team and [facility] today the recommendation is to do the CT chest to look for any pulmonary abscesses and if he still having fevers and blood cultures are continues to be positive they want me to call them back tomorrow to be transferred up there. In time the recommendation is to continue the antibiotic therapy. 09/14/2018-patient is having the low-grade fever T-max of 99.7 blood cultures done yesterday cultures are pending. CT scan done yesterday for pulmonary abscesses is reviewed by the infectious doctor Dr. Herrera she thinks significant improvement in the septic emboli and no pulmonary abscess is seen. Microbiology talk to Dr. Herrera they think they have suspicion for yeast in the blood cultures done on probably will get better picture tomorrow in the meantime Dr. Herrera wants me to start the patient on fluconazole 600 mg p.o. today and 400 mg daily from tomorrow. Continue the antibiotic therapy. Is complaining of increasing pain requesting Dilaudid IV every 4 hours as needed. As per Dr. Herrera's recommendations before starting the patient on fluconazole we going to do the EKG look for any QT interval ,I stopped Seroquel. 09/15/2018-patient is still having the low-grade fevers T-max is 99. Blood cultures came back positive for Beronica. And cultures also positive for a spingomonas paucimobilis and Myroides. I spoke to infectious disease spe cialist Dr. Herrera from [facility] her recommendation is to ignore the rare organisms found in the blood culture. Cefazolin and vancomycin but continue fluconazole. In her recommendation patient need to be on fluconazole at least for 2 weeks. She is also said is okay for her for the patient to go to [place] to be reevaluated by the cardiothoracic surgeon. No acute events in the last 24 hours. I spoke to cardiothoracic surgeon at [facility] in [place] around 5:40 PM today they willing to take the patient back when the bed is available to reevaluate him if they are not offering anything new pt going to come back here. I agree with the suggestion ,unfortunately no beds are available for the next 24-48 hours in [facility]. to send all the investigations including radiological reports, blood cultures lab work along with the patient to [place] when the bed is avilable. 09/16/2018 no acute events in the last 24 hours. Patient is having the low-grade fever T-max is 99.2. Any complaints. Comfortably in the bed requesting for breakfast. I spoke to Dr. Herrera yesterday about blood culture reports, her recommendation is to continue fluconazole 400 mg p.o. daily for 2 weeks from the day of blood cultures negative. blood cultures done on 09/13/2018 negative so far so patient need fluconazole until September 27. As per ID recommendations IV antibiotic therapy is discontinued. Reason For Visit: INFECTIVE ENDOCARDITIS Physical Exam Vital Signs: Temp Pulse Resp BP Pulse Ox 98.3 F 100 18 137/97 H 97 09/16/18 07:40 09/16/18 07:40 09/16/18 07:40 09/16/18 07:40 09/16/18 07:40 Intake & Output 09/15/18 09/16/18 09/17/18 06:59 06:59 06:59 Intake Total 3063 750 Balance 3063 750 Weight 61.2 kg General appearance: PRESENT: no acute distress Head exam: PRESENT: atraumatic Eye exam: PRESENT: PERRLA Neck exam: ABSENT: carotid bruit, JVD, lymphadenopathy, thyromegaly Respiratory exam: PRESENT: clear to auscultation neela. ABSENT: rales, rhonchi, wheezes Cardiovascular exam: PRESENT: systolic murmur, tachycardia GI/Abdominal exam: PRESENT: normal bowel sounds, soft. ABSENT: distended, guarding, mass, organolmegaly, rebound, tenderness Extremities exam: PRESENT: full ROM. ABSENT: calf tenderness, clubbing, pedal edema Neurological exam: PRESENT: alert, awake, oriented to person, oriented to place, oriented to time, oriented to situation, CN II-XII grossly intact. ABSENT: motor sensory deficit Psychiatric exam: PRESENT: appropriate affect, normal mood. ABSENT: homicidal ideation, suicidal ideation Results Laboratory Results: 09/14/18 19:33 09/15/18 05:57 09/11/18 13:00 Blood Blood Culture - Final C.albicans/C.dubliniensis 09/11/18 10:40 Catheter Tip - Picc Line Catheter Tip Culture - Final Sphingomonas Paucimobilis C.albicans/C.dubliniensis 09/09/18 13:45 Blood Blood Culture - Final Orlin (Katherineo) Meraryatus Staphylococcus Epidermidis Impressions: Chest X-Ray 09/10/18 00:00 IMPRESSION: Residual versus recurrent cavitary pneumonia left lower lobe. Chest/Abdomen CTA 09/13/18 00:00 IMPRESSION: Overall significant improvement in multifocal pneumonia and cavitation. No evidence for acute pulmonary embolism. Right lower lobe pulmonary arterial aneurysm/pseudoaneurysms is noted in the region of previously noted pulmonary embolism. 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 Her certified lactation educator recommended that if something needs to be done with his heart valve, that we should send him somew here besides violent, because when they looked at them they did not think anything else should be done. It is noted that when he was transferred back here, they transferred him with a temperature of 102 F 09/13/2018-we repeated echocardiogram on Thursday shows a vegetation on the tricuspid valve with severe tricuspid regurgitation. I spoke to cardiothoracic team in [facility] with him and updated about cultures from the PICC line tip is positive for gram-negative rods and Beronica albicans and blood cultures are positive for gram-negative rods and staph epidermidis the recommendation is to do the CT and if the cultures are persistently positive and continue to have fever they may take him back to [facility] named [facility] for possible surgery tomorrow. Appreciate their concern about the patient. 09/14/2018 plan is to continue the IV antibiotic therapy with vancomycin and cefazolin. As per ID recommendations started on fluconazole 600 mg today on 400 mg tomorrow because of the high suspicion for a blood cultures positive for yeast. T-max is 99.7. Repeat blood cultures today. 09/15/2018-as per ID recommendations will be going to stop vancomycin and cefazolin for now. Continue fluconazole for at least 2 weeks because the blood cultures are positive for Beronica. Patient is still having the low-grade fever. planning to do the blood cultures on daily basis. 09/16/2018-patient is off the IV antibiotic therapy as per ID recommendations blood cultures are showing candidemia so patient is on fluconazole 400 mg daily for 2 weeks from the day of blood cultures negative that is 09/13. Still having the low-grade fever 99.2. Cardiogram done last week on 09/10/2018 shows visitation on the tricuspid wall associated with severe tricuspid valve regurgitation. (2) Sepsis Is this a current diagnosis for this admission?: Yes Plan: His PICC line was pulled and the tip was cultured, and it is growing out a gram- negative organism. This was done because 1 of his blood cultures that was done here turned positive for gram-negative organism. Because he seems to be responding at this point to his current treatment, his antibiotics have not been adjusted, and will wait until his cultures come back before changing his regimen, unless infectious disease thinks differently, or unless he deteriorates. 09/13/2018-patient is running low at [facility] fever blood cultures are positive for gram-negative sounds and staph epidermidis and echocardiogram prior to visitation and patient has sepsis. Presently on cefazolin and vancomycin. I am going to put him on Diflucan. 09/14/2018-the cultures from the PICC line on positive for gram-negative rods and Beronica, PICC line tip cultures on shows gram-negative rods and Beronica. Patient fevers are decided after taking of the PICC line. Waiting for the culture report from . We are going to follow the ID recommendations. Echocardiogram was done on Thursday shows vegetation on the tricuspid valve with severe tricuspid regurgitation. 09/15/2018-the cultures from the PICC line came back gram-negative rods Spingomonos and myroids as per ID recommendations antibiotics are discontinued. Culture is also showing Beronica albicans plan is to continue fluconazole for at least 2 weeks. I spoke to cardiothoracic team in the [place], when the bed is available they are going to take him to reevaluate him. 09/16/2018-from the PICC line shows spingomonos and myroids-as per Dr. Herrera's recommendations IV cefazolin and IV vancomycin are discontinued. Patient is presently on p.o. fluconazole. And is still having the low-grade fever 99.2 blood pressure is 137/97 sepsis is resolving. (3) IV heroin addiction Is this a current diagnosis for this admission?: Yes Plan: 09/13 patient history of IV drug abuse-patient is found to be snorting Dilaudid in the hospital room. Counseling was provided to the patient. A consult was requested. 09/14/2018 patient has history of IV drug abuse 2 days ago he was found to be snorting Dilaudid in the hospital room. We going to arrange for psych consult. 09/15/2018-patient has history of IV drug abuse psych consult was requested patient is refusing to cooperate. 08/19/2018-patient has history of IV heroin drug use psych consult was requested patient does not want to speak to the psychiatrist. psych team unable to give any recommendations. (4) Pneumonia Qualifiers: Pneumonia type: due to unspecified organism Laterality: bilateral Lung location: unspecified part of lung Qualified Code(s): J18.9 - Pneumonia, unspecified organism Is this a current diagnosis for this admission?: Yes Plan: Latest chest x-ray suggestive of residual versus recurrent cavitary pneumonia left lower lobe. As per cardiothoracic recommendations we are going to do the CTA of the chest for further evaluation. Plan is to continue the present management. 09/14/2018-repeat CT scan done yesterday shows no pulmonary abscesses and improvement in the appearance of the pulmonary septic emboli. As per ID recommendations plan is to continue the present management. 09/15/2018-repeat CT scan was done on 09/13/2018 he discharges development of pseudoaneurysm in the area of septic emboli seen in the prior CT scans. As mentioned above I discussed the report with our cardiothoracic surgeons danny. 09/16/2018-patient has septic pulmonary emboli in the latest CT scan and also suggestive pseudoaneurysm in the area of septic pulmonary embolism seen in the prior CT scans. We are going to closely monitor the patient's pulmonary function. The pneumonia most likely secondary to septic emboli. Most likely gram-negative organisms. - Time Time Spent with patient: 15-24 minutes Medications reviewed and adjusted accordingly: Yes Anticipated discharge: Home
[2018-09-16 09:39] LABS: HEPATITIS A AB IGM Negative (Negative); HEPATITIS B CORE AB IGM Negative (Negative); HEPATITS B SURFACE ANTIGEN Negative (Negative)
[2018-09-16 09:51] LABS: ABSOLUTE BASOPHILS # (AUTO) 0.1 10^3/uL (0.0-0.2); ABSOLUTE EOSINOPHILS # (AUTO) 0.4 10^3/uL (0.0-0.6); ABSOLUTE LYMPHOCYTES (AUTO) 3.4 10^3/uL (0.5-4.7); ABSOLUTE MONOCYTES (AUTO) 1.2 10^3/uL (0.1-1.4); ABSOLUTE NEUT (AUTO) 7.1 10^3/uL (1.7-8.2); BASOPHILS % (AUTO) 0.6 % (0-2); EOSINOPHILS % (AUTO) 2.9 % (0-6); HEMATOCRIT 27.8 % (37.9-51.0); HEMOGLOBIN 9.4 g/dL (13.5-17.0); LYMPHOCYTES % (AUTO) 27.8 % (13-45); MEAN CORPUSCULAR HEMOGLOBIN 28.1 pg (27.0-33.4); MEAN CORPUSCULAR HGB CONC 33.7 g/dL (32.0-36.0); MEAN CORPUSCULAR VOLUME 84 fl (80-97); PLATELET COUNT 230 10^3/uL (150-450); RED BLOOD COUNT 3.33 10^6/uL (4.35-5.55); RED CELL DISTRIBUTION WIDTH 16.1 % (11.5-14.0); SEGMENTED NEUTROPHILS % (AUTO) 58.7 % (42-78); TOTAL CELLS COUNTED % (AUTO) 100 %; WHITE BLOOD COUNT 12.1 10^3/uL (4.0-10.5)
[2018-09-16 10:03] LABS: ALANINE AMINOTRANSFERASE 17 U/L (21-72); ALKALINE PHOSPHATASE 93 U/L (38-126); ANION GAP 12 (5-19); ASPARTATE AMINO TRANSFERASE 21 U/L (17-59); BILIRUBIN,DIRECT 0.4 mg/dL (0.0-0.4); BILIRUBIN,TOTAL 0.5 mg/dL (0.2-1.3); BLOOD UREA NITROGEN 6 mg/dL (7-20); CARBON DIOXIDE 24 mmol/L (22-30); CHLORIDE 104 mmol/L (98-107); GLUCOSE 89 mg/dL (75-110); POTASSIUM 3.6 mmol/L (3.6-5.0); SODIUM 139.5 mmol/L (137-145); TOTAL PROTEIN 6.1 g/dL (6.3-8.2)
[2018-09-16] MEDS: FERROUS SULFATE 325 MG TABLET PO SCH (10:29)
[2018-09-16] MEDS: BUSPIRONE HCL 10 MG TABLET PO SCH ×2 (10:29→17:15)
[2018-09-16] MEDS: ASPIRIN 325 MG TABLET PO SCH (10:29)
[2018-09-16] MEDS: NYSTATIN CREAM 15 GM TP SCH ×2 (10:30→17:15)
[2018-09-16 11:11] LABS: HEPATITIS C VIRUS ANTIBODY >11.0 s/co ratio (0.0-0.9)
[2018-09-16] MEDS: FLUCONAZOLE 100 MG TABLET PO SCH (17:15)
[2018-09-16] MEDS: ACETAMINOPHEN 325 MG TABLET PO PRN ×2 (19:56→23:24)
[2018-09-17] MEDS: HYDROMORPHONE HCL 2 MG TABLET PO PRN ×6 (01:12→21:29)
[2018-09-17] MEDS: ACETAMINOPHEN 325 MG TABLET PO PRN ×2 (06:57→23:25)
[2018-09-17 08:29] LABS: HIV-1 RNA PCR QUANT <20 copies/mL (.)
[2018-09-17] MEDS: BUSPIRONE HCL 10 MG TABLET PO SCH ×2 (09:25→17:02)
[2018-09-17] MEDS: ASPIRIN 325 MG TABLET PO SCH (09:25)
[2018-09-17] MEDS: FERROUS SULFATE 325 MG TABLET PO SCH (09:26)
[2018-09-17] MEDS: NYSTATIN CREAM 15 GM TP SCH ×2 (09:26→17:04)
[2018-09-17] MEDS: FONDAPARINUX SODIUM INJ 2.5 MG/0.5 ML DISP.SYRIN SUBCUT SCH (09:27)
[2018-09-17] MEDS ORDERED: DIPHENHYDRAMINE HCL 25 MG CAPSULE PO PRN (11:18)
--- NOTE | 2018-09-17 13:04 | PDOC PROGRESS REPORT ---
Subjective Progress Note for:: 09/17/18 Subjective:: 09/13/2018-. Patient is still having the low-grade fevers the culture from the PICC line tip came back gram-negative rods on blood culture positive for gram- negative rods. Culture tip also showing Beronica albicans. Patient found to be snorting Dilaudid in his room. Comfortably in the bed sleeping denies any problems. Spoke to cardiothoracic team and [facility] today the recommendation is to do the CT chest to look for any pulmonary abscesses and if he still having fevers and blood cultures are continues to be positive they want me to call them back tomorrow to be transferred up there. In time the recommendation is to continue the antibiotic therapy. 09/14/2018-patient is having the low-grade fever T-max of 99.7 blood cultures done yesterday cultures are pending. CT scan done yesterday for pulmonary abscesses is reviewed by the infectious doctor Dr. Herrera she thinks significant improvement in the septic emboli and no pulmonary abscess is seen. Microbiology talk to Dr. Herrera they think they have suspicion for yeast in the blood cultures done on probably will get better picture tomorrow in the meantime Dr. Herrera wants me to start the patient on fluconazole 600 mg p.o. today and 400 mg daily from tomorrow. Continue the antibiotic therapy. Is complaining of increasing pain requesting Dilaudid IV every 4 hours as needed. As per Dr. Herrera's recommendations before starting the patient on fluconazole we going to do the EKG look for any QT interval ,I stopped Seroquel. 09/15/2018-patient is still having the low-grade fevers T-max is 99. Blood cultures came back positive for Beronica. And cultures also positive for a spingomonas paucimobilis and Myroides. I spoke to infectious disease specialist Dr. Herrera from [facility] her recommendation is to ignore the rare organisms found in the blood culture. Cefazolin and vancomycin but continue fluconazole. In her recommendation patient need to be on fluconazole at least for 2 weeks. She is also said is okay for her for the patient to go to [place] to be reevaluated by the cardiothoracic surgeon. No acute events in the last 24 hours. I spoke to cardiothoracic surgeon at [facility] in [place] around 5:40 PM today they willing to take the patient back when the bed is available to reevaluate him if they are not offering anything new pt going to come back here. I agree with the suggestion ,unfortunately no beds are available for the next 24-48 hours in [facility]. to send all the investigations including radiological reports, blood cultures lab work along with the patient to [place] when the bed is avilable. 09/16/2018 no acute events in the last 24 hours. Patient is having the low-grade fever T-max is 99.2. Any complaints. Comfortably in the bed requesting for breakfast. I spoke to Dr. Herrera yesterday about blood culture reports, her recommendation is to continue fluconazole 400 mg p.o. daily for 2 weeks from the day of blood cultures negative. blood cultures done on 09/13/2018 negative so far so patient need fluconazole until September 27. As per ID recommendations IV antibiotic therapy is discontinued. 09/17/2018-no acute events in the last 24 hours. Patient is still having the low-grade fever with T-max of 9.2. Patient is complaining of itching and nurse noticed his nonspecific rash on the arms and back we started him on Benadryl 25 mg p.o. every 6 as needed by the time he went to see the patient rash was resolved. Patient is off the antibiotic therapy and is also receiving fluconazole 400 mg p.o. daily. pt is comfortably in the bed denies any problems. Reason For Visit: INFECTIVE ENDOCARDITIS Physical Exam Vital Signs: Temp Pulse Resp BP Pulse Ox 98.7 F 100 19 138/96 H 95 09/17/18 07:30 09/17/18 07:30 09/17/18 07:30 09/17/18 07:30 09/17/18 07:30 Intake & Output 09/16/18 09/17/18 09/18/18 06:59 06:59 06:59 Intake Total 750 Balance 750 Weight 61.2 kg 60 kg General appearance: PRESENT: no acute distress Head exam: PRESENT: atraumatic Eye exam: PRESENT: PERRLA Neck exam: ABSENT: carotid bruit, JVD, lymphadenopathy, thyromegaly Respiratory exam: PRESENT: clear to auscultation neela. ABSENT: rales, rhonchi, wheezes Cardiovascular exam: PRESENT: systolic murmur, tachycardia GI/Abdominal exam: PRESENT: normal bowel sounds, soft. ABSENT: distended, guarding, mass, organolmegaly, rebound, tenderness Extremities exam: PRESENT: full ROM. ABSENT: calf tenderness, clubbing, pedal edema Neurological exam: PRESENT: alert, awake, oriented to person, oriented to place, oriented to time, oriented to situation, CN II-XII grossly intact. ABSENT: motor sensory deficit Psychiatric exam: PRESENT: appropriate affect, normal mood. ABSENT: homicidal ideation, suicidal ideation Results Laboratory Results: 09/16/18 09:06 09/16/18 09:06 09/11/18 11:51 Blood Blood Culture - Final NO GROWTH IN 5 DAYS Impressions: Chest X-Ray 09/10/18 00:00 IMPRESSION: Residual versus recurrent cavitary pneumonia left lower lobe. Chest/Abdomen CTA 09/13/18 00:00 IMPRESSION: Overall significant improvement in multifocal pneumonia and cavitation. No evidence for acute pulmonary embolism. Right lower lobe pulmonary arterial aneurysm/pseudoaneurysms is noted in the region of previously noted pulmonary embolism. 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 Her ship fastener recommended that if something needs to be done with his heart valve, that we should send him somewhe re besides violent, because when they looked at them they did not think anything else should be done. It is noted that when he was transferred back here, they transferred him with a temperature of 102 F 09/13/2018-we repeated echocardiogram on Thursday shows a vegetation on the tricuspid valve with severe tricuspid regurgitation. I spoke to cardiothoracic team in [facility] with him and updated about cultures from the PICC line tip is positive for gram-negative rods and Beronica albicans and blood cultures are positive for gram-negative rods and staph epidermidis the recommendation is to do the CT and if the cultures are persistently positive and continue to have fever they may take him back to [facility] for possible surgery tomorrow. Appreciate their concern about the patient. 09/14/2018 plan is to continue the IV antibiotic therapy with vancomycin and cefazolin. As per ID recommendations started on fluconazole 600 mg today on 400 mg tomorrow because of the high suspicion for a blood cultures positive for yeast. T-max is 99.7. Repeat blood cultures today. 09/15/2018-as per ID recommendations will be going to stop vancomycin and cefazolin for now. Continue fluconazole for at least 2 weeks because the blood cultures are positive for Beronica. Patient is still having the low-grade fever. planning to do the blood cultures on daily basis. 09/16/2018-patient is off the IV antibiotic therapy as per ID recommendations blood cultures are showing candidemia so patient is on fluconazole 400 mg daily for 2 weeks from the day of blood cultures negative that is 09/13. Still having the low-grade fever 99.2. echoCardiogram done last week on 09/10/2018 shows visitation on the tricuspid wall associated with severe tricuspid valve regurgitation. 09/17/2018-patient is taken off the antibiotic therapy as per Dr. Herrera's recommendations he is presently on fluconazole for Beronica albicans that was found in the blood cultures. To continue fluconazole until September 27. Latest blood cultures from 09/13/2018 and 09/14/2018 are negative. Echocardiogram shows vegetation in the tricuspid wall in association with a severe tricuspid valve regurgitation. I spoke to cardiothoracic team in [place] 2 days ago they agreed to reevaluate the patient but they do not have any beds available so far. (2) Sepsis Is this a current diagnosis for this admission?: Yes Plan: His PICC line was pulled and the tip was cultured, and it is growing out a gram- negative organism. This was done because 1 of his blood cultures that was done here turned positive for gram-negative organism. Because he seems to be responding at this point to his current treatment, his antibiotics have not been adjusted, and will wait until his cultures come back before changing his regimen, unless infectious disease thinks differently, or unless he d eteriorates. 09/13/2018-patient is running low at care fever blood cultures are positive for gram-negative sounds and staph epidermidis and echocardiogram prior to visitation and patient has sepsis. Presently on cefazolin and vancomycin. I am going to put him on Diflucan. 09/14/2018-the cultures from the PICC line on 14 positive for gram-negative rods and Beronica, PICC line tip cultures on 16 shows gram-negative rods and Beronica. Patient fevers are decided after taking of the PICC line. Waiting for the culture report from . We are going to follow the ID recommendations. Echocardiogram was done on Thursday shows vegetation on the tricuspid valve with severe tricuspid regurgitation. 09/15/2018-the cultures from the PICC line came back gram-negative rods Spingomonos and myroids as per ID recommendations antibiotics are discontinued. Culture is also showing Beronica albicans plan is to continue fluconazole for at least 2 weeks. I spoke to cardiothoracic team in the [place], when the bed is available they are going to take him to reevaluate him. 09/16/2018-from the PICC line shows spingomonos and myroids-as per Dr. Herrera's recommendations IV cefazolin and IV vancomycin are discontinued. Patient is presently on p.o. fluconazole. And is still having the low-grade fever 99.2 blood pressure is 137/97 sepsis is resolving. 09/17/2018-sepsis is resolving. (3) IV heroin addiction Is this a current diagnosis for this admission?: Yes Plan: 09/13 patient history of IV drug abuse-patient is found to be snorting Dilaudid in the hospital room. Counseling was provided to the patient. A consult was requested. 09/14/2018 patient has history of IV drug abuse 2 days ago he was found to be snorting Dilaudid in the hospital room. We going to arrange for psych consult. 09/15/2018-patient has history of IV drug abuse psych consult was requested patient is refusing to cooperate. 09/16/2018-patient has history of IV heroin drug use psych consult was requested patient does not want to speak to the psychiatrist. psych team unable to give any recommendations. 09/17/2018-patient has history of IV drug use and addiction psych consult was requested patient is uncooperative and unwilling to discuss the care with the psychiatric team. (4) Pneumonia Qualifiers: Pneumonia type: due to unspecified organism Laterality: bilateral Lung location: unspecified part of lung Qualified Code(s): J18.9 - Pneumonia, unspecified organism Is this a current diagnosis for this admission?: Yes Plan: Latest chest x-ray suggestive of residual versus recurrent cavitary pneumonia left lower lobe. As per cardiothoracic recommendations we are going to do the CTA of the chest for further evaluation. Plan is to continue the present m anagement. 09/14/2018-repeat CT scan done yesterday shows no pulmonary abscesses and improvement in the appearance of the pulmonary septic emboli. As per ID recommendations plan is to continue the present management. 09/15/2018-repeat CT scan was done on 09/13/2018 he discharges development of pseudoaneurysm in the area of septic emboli seen in the prior CT scans. As mentioned above I discussed the report with our cardiothoracic surgeons danny. 09/16/2018-patient has septic pulmonary emboli in the latest CT scan and also suggestive pseudoaneurysm in the area of septic pulmonary embolism seen in the prior CT scans. We are going to closely monitor the patient's pulmonary function. The pneumonia most likely secondary to septic emboli. Most likely gram-negative organisms. 09/17/2018-CTA of the chest was done on 09/13/2018 shows significant improvement of the multifocal pneumonia and cavitation. No evidence of pulmonary embolism. Right lower lobe pulmonary arterial aneurysm/pseudoaneurysm is noted in the region of the previously noted pulmonary embolism. Patient most likely have gr am-negative back material pneumonia. Plan is to repeat the CT chest tomorrow. - Time Time Spent with patient: 15-24 minutes Medications reviewed and adjusted accordingly: Yes Anticipated discharge: Home
[2018-09-17] MEDS: FLUCONAZOLE 100 MG TABLET PO SCH (17:02)
[2018-09-17] MEDS ORDERED: GUAIFENESIN 600 MG TABLET.SA PO ONE (23:00)
[2018-09-17] MEDS ORDERED: NORMAL SALINE 250 ML IV ONE (23:45)
[2018-09-18] MEDS: HYDROMORPHONE HCL 2 MG TABLET PO PRN ×4 (01:29→13:41)
--- NOTE | 2018-09-18 01:39 | RADIOLOGY REPORT (SQ) ---
EXAM DESCRIPTION: XR CHEST 1 VIEW COMPLETED DATE/TME: 09/17/2018 00:00 CLINICAL HISTORY: 22 years, Male, Tachycardia and fever COMPARISON: 09/10/2018 chest NUMBER OF VIEWS: 1 TECHNIQUE: Portable chest LIMITATIONS: None. FINDINGS: The heart size is stable. There is been removal of the right PICC catheter. Mixed interstitial and airspace opacities bilaterally for which pneumonia is considered. No pneumothorax IMPRESSION: Mixed interstitial and airspace opacity suspicious for pneumonia copyright 2010 [employer]- All Rights Reserved
[2018-09-18 04:22] LABS: ABSOLUTE BASOPHILS # (AUTO) 0.1 10^3/uL (0.0-0.2); ABSOLUTE LYMPHOCYTES (AUTO) 2.9 10^3/uL (0.5-4.7); ABSOLUTE MONOCYTES (AUTO) 1.9 10^3/uL (0.1-1.4); BASOPHILS % (AUTO) 0.4 % (0-2); EOSINOPHILS % (AUTO) 0.2 % (0-6); HEMATOCRIT 26.7 % (37.9-51.0); LYMPHOCYTES % (AUTO) 18.3 % (13-45); MEAN CORPUSCULAR HEMOGLOBIN 28.6 pg (27.0-33.4); MEAN CORPUSCULAR HGB CONC 33.7 g/dL (32.0-36.0); MEAN CORPUSCULAR VOLUME 85 fl (80-97); MONOCYTES % (AUTO) 11.8 % (3-13); PLATELET COUNT 197 10^3/uL (150-450); RED BLOOD COUNT 3.15 10^6/uL (4.35-5.55); RED CELL DISTRIBUTION WIDTH 16.5 % (11.5-14.0); SEGMENTED NEUTROPHILS % (AUTO) 69.3 % (42-78); TOTAL CELLS COUNTED % (AUTO) 100 %; WHITE BLOOD COUNT 15.9 10^3/uL (4.0-10.5)
[2018-09-18] MEDS ORDERED: VANCOMYCIN HCL INJ 1000 MG VIAL IV ONE (04:29)
[2018-09-18] MEDS ORDERED: PIPERACILLIN/TAZOBACTAM 3.375 GM VIAL IV PRN (04:30)
--- NOTE | 2018-09-18 04:35 | Progress Note ---
Provider Note Provider Note: The patient has been having a fever of 101.7 and a tachycardia 152. I ordered 2 blood cultures and the patient was given Tylenol after which time she came down to 98.9. I ordered IV Lopressor 5 mg dilated brought heart rate down to 107 at which time the temperature was normal. The patient has been having cough and therefore I ordered a chest x-ray that revealed mixed infiltrates concerning for pneumonia. Given his prolonged hospitalization and recent infective endocarditis, the patient was given IV vancomycin being emergency risk as well as IV Zosyn being a Pseudomonas risk. He was also given mucolytic therapy with Mucinex. We will continue to closely monitor him.
[2018-09-18 04:58] LABS: ALANINE AMINOTRANSFERASE 20 U/L (21-72); ALBUMIN 3.1 g/dL (3.5-5.0); ALKALINE PHOSPHATASE 90 U/L (38-126); ANION GAP 12 (5-19); ASPARTATE AMINO TRANSFERASE 16 U/L (17-59); BILIRUBIN,DIRECT 0.2 mg/dL (0.0-0.4); BILIRUBIN,TOTAL 0.8 mg/dL (0.2-1.3); BLOOD UREA NITROGEN 11 mg/dL (7-20); CALCIUM 8.7 mg/dL (8.4-10.2); CARBON DIOXIDE 23 mmol/L (22-30); CHLORIDE 103 mmol/L (98-107); GLUCOSE 109 mg/dL (75-110); POTASSIUM 3.3 mmol/L (3.6-5.0); SODIUM 138.3 mmol/L (137-145); TOTAL PROTEIN 6.2 g/dL (6.3-8.2)
[2018-09-18] MEDS ORDERED: VANCOMYCIN HCL INJ 1000 MG VIAL IV PRN (05:05)
[2018-09-18] MEDS ORDERED: VANCOMYCIN HCL INJ 1000 MG VIAL ONE (05:17)
[2018-09-18] MEDS ORDERED: PIPERACILLIN/TAZOBACTAM 3.375 GM VIAL IV ONE (05:17)
[2018-09-18] MEDS: PIPERACILLIN SODIUM/TAZOBACTAM 3.375 GM in NORMAL SALINE 100 ML IV SCH ×2 (05:34→11:38)
[2018-09-18] MEDS ORDERED: VANCOMYCIN HCL 1,000 MG in DEXTROSE 5%-WATER 250 ML IV ONE (06:00)
[2018-09-18] MEDS: ASPIRIN 325 MG TABLET PO SCH (09:37)
[2018-09-18] MEDS: FERROUS SULFATE 325 MG TABLET PO SCH (09:37)
[2018-09-18] MEDS: BUSPIRONE HCL 10 MG TABLET PO SCH (09:37)
[2018-09-18] MEDS: FONDAPARINUX SODIUM INJ 2.5 MG/0.5 ML DISP.SYRIN SUBCUT SCH (09:38)
[2018-09-18] MEDS: NYSTATIN CREAM 15 GM TP SCH (09:38)
[2018-09-18] MEDS ORDERED: GUAIFENESIN 600 MG TABLET.SA PO SCH (10:00)
[2018-09-18 11:54] VITALS: BP 107/48
--- NOTE | 2018-09-18 13:51 | PDOC TRANSFER SUMMARY ---
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 Her naval surface fire support planner recommended that if something needs to be done with his heart valve, that we should send him somewhere besides violent, because when they looked at them they did not think a nything else should be done. It is noted that when he was transferred back here, they transferred him with a temperature of 102 F 09/13/2018-we repeated echocardiogram on Thursday shows a vegetation on the tricuspid valve with severe tricuspid regurgitation. I spoke to cardiothoracic team in [facility] with him and updated about cultures from the PICC line tip is positive for gram-negative rods and Beronica albicans and blood cultures are positive for gram-negative rods and staph epidermidis the recommendation is to do the CT and if the cultures are persistently positive and continue to have fever they may take him back to [facility] for possible surgery tomorrow. Appreciate their concern about the patient. 09/14/2018 plan is to continue the IV antibiotic therapy with vancomycin and cefazolin. As per ID recommendations started on fluconazole 600 mg today on 400 mg tomorrow because of the high suspicion for a blood cultures positive for yeast. T-max is 99.7. Repeat blood cultures today. 09/15/2018-as per ID recommendations will be going to stop vancomycin and cefazolin for now. Continue fluconazole for at least 2 weeks because the blood cultures are positive for Beronica. Patient is still having the low-grade fever. planning to do the blood cultures on daily basis. 09/16/2018-patient is off the IV antibiotic therapy as per ID recommendations blood cultures are showing candidemia so patient is on fluconazole 400 mg daily for 2 weeks from the day of blood cultures negative that is 09/13. Still having the low-grade fever 99.2. echoCardiogram done last week on 09/10/2018 shows v isitation on the tricuspid wall associated with severe tricuspid valve regurgitation. 09/17/2018-patient is taken off the antibiotic therapy as per Dr. Herrera's recommendations he is presently on fluconazole for Beronica albicans that was found in the blood cultures. To continue fluconazole until September 27. Latest blood cultures from 09/13/2018 and 09/14/2018 are negative. Echocardiogram shows vegetation in the tricuspid wall in association with a severe tricuspid valve regurgitation. I spoke to cardiothoracic team in [place] 2 days ago they agreed to reevaluate the patient but they do not have any beds available so far. 09/18/2018-patient has a fever of 101.7 last night heart rate went up to 150 he was started on IV vancomycin and Zosyn she was given IV metoprolol heart rate came down to close to 110 today. I called [facility] to this morning and Clair in the transfer center told me patient was on the list and when the bed is available they will call here. The nurse upstairs got a call that transportation is on the way to take the patient to [place] hopefully he will be reevaluated again for further management. Patient is presently on fluconazole 400 mg p.o. daily for candidemia and the blood culture and vancomycin and Zosyn were restarted yesterday because of high fever and t achycardia. As per ID recommendations antibiotics were stopped 2 days ago and resumed again last night. (2) Sepsis Is this a current diagnosis for this admission?: Yes Diagnosis Summary: His PICC line was pulled and the tip was cultured, and it is growing out a gram- negative organism. This was done because 1 of his blood cultures that was done here turned positive for gram-negative organism. Because he seems to be responding at this point to his current treatment, his antibiotics have not been adjusted, and will wait until his cultures come back before changing his regimen, unless infectious disease thinks differently, or unless he deteriorates. 09/13/2018-patient is running low at care fever blood cultures are positive for gram-negative sounds and staph epidermidis and echocardiogram prior to visitation and patient has sepsis. Presently on cefazolin and vancomycin. I am going to put him on Diflucan. 09/14/2018-the cultures from the PICC line on positive for gram-negative rods and Beronica, PICC line tip cultures on shows gram-negative rods and Beronica. Patient fevers are decided after taking of the PICC line. Waiting for the culture report from . We are going to follow the ID recommendations. Echocardiogram was done on [place] shows vegetation on the tricuspid valve with severe tricuspid regurgitation. 09/15/2018-the cultures from the PICC line came back gram-negative rods Spingomonos and myroids as per ID recommendations antibiotics are discontinued. Culture is also showing Beronica albicans plan is to continue fluconazole for at least 2 weeks. I spoke to cardiothoracic team in the [facility], when the bed is available they are going to take him to reevaluate him. 09/16/2018-from the PICC line shows spingomonos and myroids-as per Dr. Herrera's recommendations IV cefazolin and IV vancomycin are discontinued. Patient is presently on p.o. fluconazole. And is still having the low-grade fever 99.2 blood pressure is 137/97 sepsis is resolving. 09/17/2018-sepsis is resolving. 09/18/2018-patient has a spiking fever of 101.7 along with tachycardia heart rate close to 150 started on IV vancomycin and Zosyn he is already on fluconazole for candidemia and echocardiogram was done last Thursday shows vegetation of the tricuspid valve with severe tricuspid regurgitation. Patient is going back to [place] today for further evaluation by the cardiothoracic surgeon. We did a blood culture again last night. CT chest was ordered yesterday but the patient refused. CT of the chest done few days ago shows suggests improvement in septic pulmonary emboli. (3) IV heroin addiction Is this a current diagnosis for this admission?: Yes Diagnosis Summary: 09/13 patient history of IV drug abuse-patient is found to be snorting Dilaudid in the hospital room. Counseling was provided to the patient. A consult was requested. 09/14/2018 patient has history of IV drug abuse 2 days ago he was found to be snorting Dilaudid in the hospital room. We going to arrange for psych consult. 09/15/2018-patient has history of IV drug abuse psych consult was requested patient is refusing to cooperate. 09/16/2018-patient has history of IV heroin drug use psych consult was requested patient does not want to speak to the psychiatrist. psych team unable to give any recommendations. 09/17/2018-patient has history of IV drug use and addiction psych consult was requested patient is uncooperative and unwilling to discuss the care with the psychiatric team. 09/18/2018-patient has history of IV drug abuse and he found to snoring Dilaudid tablets in the hospital room. Psych consult was requested but the patient refused to talk to the psychiatric team. (4) Pneumonia Is this a current diagnosis for this admission?: Yes Diagnosis Summary: Latest chest x-ray suggestive of residual versus recurrent cavitary pneumonia left lower lobe. As per cardiothoracic recommendations we are going to do the CTA of the chest for further evaluation. Plan is to continue the present management. 09/14/2018-repeat CT scan done yesterday shows no pulmonary abscesses and improvement in the appearance of the pulmonary septic emboli. As per ID recommendations plan is to continue the present management. 09/15/2018-repeat CT scan was done on 09/13/2018 he discharges development of pseudoaneurysm in the area of septic emboli seen in the prior CT scans. As mentioned above I discussed the report with our cardiothoracic surgeons danny. 09/16/2018-patient has septic pulmonary emboli in the latest CT scan and also suggestive pseudoaneurysm in the area of septic pulmonary embolism seen in the prior CT scans. We are going to closely monitor the patient's pulmonary function. The pneumonia most likely secondary to septic emboli. Most likely gram-negative organisms. 09/17/2018-CTA of the chest was done on 09/13/2018 shows significant improvement of the multifocal pneumonia and cavitation. No evidence of pulmonary embolism. Right lower lobe pulmonary arterial aneurysm/pseudoaneurysm is noted in the region of the previously noted pulmonary embolism. Patient most likely have gram-negative bacteria pneumonia. Plan is to repeat the CT chest tomorrow. 08/21/2018-patient has pneumonia most likely secondary to endocarditis causing septic pulmonary emboli. Follow-up CT scan shows improvement in the septic emboli. There is right lower lobe pulmonary arterial aneurysm/pseudoaneurysm noted in the region of the previously noted pulmonary embolism. Patient had most likely gram-negative bacteria causing hospital-acquired pneumonia. - Transfer Medications Home Medications: Quetiapine Fumarate [Seroquel] 50 mg PO Q12 09/08/18 Transfer Medications: Current Medications Acetaminophen (Tylenol 325 Mg Tablet) 650 mg PO Q4HP PRN PRN Reason: FOR PAIN OR TEMP Stop: 10/11/18 08:23 Last Admin: 09/17/18 23:25 Dose: 650 mg Documented by: Aspirin (Aspirin 325 Mg Tablet) 325 mg PO DAILY KENNETH Stop: 10/09/18 09:59 Last Admin: 09/18/18 09:37 Dose: 325 mg Documented by: Buspirone HCl (Buspar 10 Mg Tablet) 5 mg PO BID KENNETH Stop: 10/09/18 09:59 Last Admin: 09/18/18 09:37 Dose: 5 mg Documented by: Diphenhydramine HCl (Benadryl 25 Mg Capsule) 25 mg PO Q4HP PRN PRN Reason: ITCHING Stop: 10/17/18 11:17 Last Admin: 09/17/18 14:27 Dose: 25 mg Documented by: Ferrous Sulfate (Feosol 325 Mg Tablet) 325 mg PO DAILY KENNETH Stop: 10/09/18 09:59 Last Admin: 09/18/18 09:37 Dose: 325 mg Documented by: Fluconazole (Diflucan 100 Mg Tablet) 400 mg PO QPM KENNETH Stop: 09/22/18 17:59 Last Admin: 09/17/18 17:02 Dose: 400 mg Documented by: Fondaparinux (Arixtra Inj 2.5 Mg/0.5 Ml Disp.Syrin) 2.5 mg SUBCUT QAM KENNETH Stop: 10/08/18 19:29 Last Admin: 09/18/18 09:38 Dose: Not Given Documented by: Guaifenesin (Mucinex Sr 600 Mg Tablet.Sa) 600 mg PO Q12 KENNETH Stop: 10/18/18 09:59 Last Admin: 09/18/18 09:37 Dose: 600 mg Documented by: Hydromorphone HCl (Dilaudid 2 Mg Tablet) 2 mg PO Q4HP PRN PRN Reason: PAIN Stop: 09/21/18 17:14 Last Admin: 09/18/18 13:41 Dose: 2 mg Documented by: Piperacillin Sod/Tazobactam (Sod 3.375 gm/ Sodium Chloride) 100 mls @ 200 ml s/hr IV Q6 KENNETH Stop: 09/25/18 05:59 Last Infusion: 09/18/18 12:21 Dose: Infused Documented by: Vancomycin HCl 1,000 mg/ (Dextrose) 250 mls @ 166.667 mls/hr IV Q8 KENNETH Stop: 09/25/18 13:59 Metoprolol Tartrate (Lopressor 50 Mg Tablet) 25 mg PO BID KENNETH Stop: 10/11/18 17:59 Nystatin (Mycostatin Cream 15 Gm) 1 applic TP BID [facility] Stop: 09/22/18 17:59 Last Admin: 09/18/18 09:38 Dose: 1 applic Documented by: Ondansetron HCl (Zofran Inj/Pf 4 Mg/2 Ml Sdv) 4 mg IV Q4HP PRN PRN Reason: FOR NAUSEA/VOMITING Stop: 10/08/18 18:31 Sodium Chloride (Saline Flush 2.5 Ml Monoject Prefil Syrin) 2.5 ml IV Q8 [facility] Stop: 10/09/18 21:59 Last Admin: 09/18/18 05:38 Dose: 2.5 ml Documented by: - Allergies Allergies/Adverse Reactions: No Known Allergies Allergy (Verified 07/06/16 18:49) Physical Exam Vital Signs: Temp Pulse Resp BP Pulse Ox 98.4 F 92 14 107/48 L 94 09/18/18 11:44 09/18/18 11:44 09/18/18 11:44 09/18/18 11:44 09/18/18 11:44 Intake & Output 09/17/18 09/18/18 09/19/18 06:59 06:59 06:59 Intake Total 850 350 Balance 850 350 Weight 60 kg 60.9 kg General appearance: PRESENT: mild distress Head exam: PRESENT: atraumatic Eye exam: PRESENT: PERRLA Mouth exam: PRESENT: moist, tongue midline Neck exam: ABSENT: carotid bruit, JVD, lymphadenopathy, thyromegaly Respiratory exam: PRESENT: clear to auscultation neela. ABSENT: rales, rhonchi, wheezes Cardiovascular exam: PRESENT: systolic murmur, tachycardia GI/Abdominal exam: PRESENT: normal bowel sounds, soft. ABSENT: distended, guarding, mass, organolmegaly, rebound, tenderness Extremities exam: PRESENT: full ROM. ABSENT: calf tenderness, clubbing, pedal edema Neurological exam: PRESENT: alert, awake, oriented to person, oriented to place, oriented to time, oriented to situation, CN II-XII grossly intact. ABSENT: mot or sensory deficit Psychiatric exam: PRESENT: appropriate affect, normal mood. ABSENT: homicidal ideation, suicidal ideation Results Laboratory Results: 09/18/18 03:05 09/18/18 03:05 09/18/18 09/18/18 03:05 03:05 WBC 15.9 H RBC 3.15 L Hgb 9.0 L Hct 26.7 L MCV 85 MCH 28.6 MCHC 33.7 RDW 16.5 H Plt Count 197 Seg Neutrophils % 69.3 Lymphocytes % 18.3 Monocytes % 11.8 Eosinophils % 0.2 Basophils % 0.4 Absolute Neutrophils 11.0 H Absolute Lymphocytes 2.9 Absolute Monocytes 1.9 H Absolute Eosinophils 0.0 Absolute Basophils 0.1 Sodium 138.3 Potassium 3.3 L Chloride 103 Carbon Dioxide 23 Anion Gap 12 BUN 11 Creatinine 0.56 Est GFR ( Amer) > 60 Est GFR (Non-Af Amer) > 60 Glucose 109 Calcium 8.7 Magnesium 1.5 L Total Bilirubin 0.8 AST 16 L ALT 20 L Alkaline Phosphatase 90 Total Protein 6.2 L Albumin 3.1 L Impressions: Chest/Abdomen CTA 09/13/18 00:00 IMPRESSION: Overall significant improvement in multifocal pneumonia and cavitation. No evidence for acute pulmonary embolism. Right lower lobe pulmonary arterial aneurysm/pseudoaneurysms is noted in the region of previously noted pulmonary embolism. Chest X-Ray 09/17/18 00:00 IMPRESSION: Mixed interstitial and airspace opacity suspicious for pneumonia copyright 2010 [employer]- All Rights Reserved Plan Discharge Plan: To transfer the patient to [facility] Time Spent: Greater than 30 Minutes
[2018-09-18] MEDS ORDERED: VANCOMYCIN HCL 1,000 MG in DEXTROSE 5%-WATER 250 ML IV SCH (14:00)
== END 2018-09-18 14:25 | disposition short-term general hospital (02) | DRG 288 ==
LOC: 4S 18:01 → 3S 09-11 13:57
PROVIDERS: ADMIT Internal Medicine; ATTEND Internal Medicine
PROC: 30233N1 Transfusion of Nonautologous Red Blood Cells into Peripheral Vein, Percutaneous Approach (ICD-10-PCS; principal; 2018-09-11)
DX: I33.0 Acute and subacute infective endocarditis (principal); A41.89 Other specified sepsis; J18.9 Pneumonia, unspecified organism; I26.90 Septic pulmonary embolism without acute cor pulmonale; F11.20 Opioid dependence, uncomplicated; N17.9 Acute kidney failure, unspecified; E87.1 Hypo-osmolality and hyponatremia; B95.61 Methicillin susceptible Staphylococcus aureus infection as the cause of diseases classified elsewhere; I07.1 Rheumatic tricuspid insufficiency; F15.10 Other stimulant abuse, uncomplicated; F32.9 Major depressive disorder, single episode, unspecified; F17.210 Nicotine dependence, cigarettes, uncomplicated; Z16.24 Resistance to multiple antibiotics; Z82.49 Family history of ischemic heart disease and other diseases of the circulatory system; Z79.899 Other long term (current) drug therapy
CPT/HCPCS: 36415; 36430; 71045; 71275; 80048; 80053; 80074; 80202; 81001; 82565; 83605; 83735; 85025; 85027; 86850; 86900; 86901; 86920; 87040; 87070; 87077; 87186; 87536; 93005; 93010; 93306; J0690; J1170; J1630; J2543; J3370; J3490; J7030; J7050; J7060; P9016

== ENCOUNTER 2020-02-05 05:30 | Emergency (ER) | payer SELFPAY ==
--- NOTE | 2020-02-05 06:19 | RADIOLOGY REPORT (SQ) ---
EXAM DESCRIPTION: XR ANKLE 3 OR MORE VIEWS COMPLETED DATE/TME: 02/05/2020 05:36 CLINICAL HISTORY: 24 years, Male, missed a stepped walking out of camper COMPARISON: None. NUMBER OF VIEWS: 3 TECHNIQUE: 3 views right ankle LIMITATIONS: None. FINDINGS: Negative for acute fracture or dislocation. The ankle mortise is intact. Soft tissues are unremarkable IMPRESSION: Negative exam copyright 2011 [employer]- All Rights Reserved
--- NOTE | 2020-02-05 07:07 | ER Document Report ---
ED General - General Chief Complaint: Ankle Injury Stated Complaint: FALL,ANKLE INJURY Time Seen by Provider: 02/05/20 06:01 TRAVEL OUTSIDE OF THE [place] IN LAST 30 DAYS: No - HPI Notes: Chief complaint: Right ankle injury History of present illness: 24-year-old male with longstanding history of heroin and methamphetamine abuse was released from nursing home within the last 24 hours. He states that he stumbled while getting out of a camper where he was sleeping and fell twisting his right ankle. He denies any head injury or loss of consciousness. He called EMS because of pain in his ankle. They placed a splint and transported him here. Patient denies drinking alcohol. He denies any use of drugs since he left nursing home. - Related Data Allergies/Adverse Reactions: No Known Allergies Allergy (Verified 07/06/16 18:49) Past Medical History - General Information source: Patient - Social History Smoking Status: Current Every Day Smoker Frequency of alcohol use: None Drug Abuse: Heroin, Marijuana, Methamphetamine Family History: Hypertension - Past Medical History Cardiac Medical History: Reports: Other - History of bacterial endocarditis Renal/ Medical History: Denies: Hx Peritoneal Dialysis Psychiatric Medical History: Reports: Hx Depression Review of Systems - Review of Systems Notes: Constitutional: Negative for fever. HENT: Negative for sore throat. Eyes: Negative for visual changes. Cardiovascular: Negative for chest pain. Respiratory: Negative for shortness of breath. Gastrointestinal: Negative for abdominal pain, vomiting or diarrhea. Genitourinary: Negative for dysuria. Musculoskeletal: As per HPI. Skin: Negative for rash. Neurological: Negative for headaches, weakness or numbness. 10 point ROS negative except as marked above and in HPI. Physical Exam - Vital signs Vitals: Temp 98.6 F 02/05/20 05:31 - Notes Notes: GENERAL: Well-developed well-nourished appearing in no acute distress. SKIN: Good turgor no rashes. Widespread superficial abrasions. HEAD: Normocephalic atraumatic. EYES: PERRLA. EOMI. Conjunctivae and sclerae clear. EARS: CANALS AND TMS CLEAR. NOSE: CLEAR. MOUTH: Moist mucosa. Good dentition. No stridor or edema. No drooling. NECK: Supple. No masses or thyromegaly. No adenopathy. Carotids 2+ without bruits. No JVD. BACK: Symmetrical without tenderness. CHEST: Respirations unlabored. Breath sounds clear and symmetrical. HEART: Regular rhythm. No murmur gallop or rub. ABDOMEN: Soft nontender without masses, organomegaly or rebound. Bowel sounds normally active. No bruits. GENITALIA: Deferred. EXTREMITIES: Mild soft tissue swelling and mild tenderness over medial and lateral aspect of right ankle. Achilles tendon is normal to palpation. Alford test normal. No gross ligamentous instability. No edema. No calf tenderness. Cap refill less than 1.5 seconds. Dorsalis pedis and posterior tibial pulses 3+ and symmetrical. NEUROLOGICAL: GCS 15. Intermittent scattered random twitching movements. Patient says he has this all the time due to prior abuse of amphetamines. Alert and oriented x3. Mildly slurred speech. Cranial nerves II through XII intact. Sensorimotor and cerebellar normal. Normal tone. PSYCHIATRIC: Mildly argumentative with otherwise appropriate affect. Course - Re-evaluation Re-evalutation: 02/05/20 07:07 X-ray of the right ankle was negative for fracture dislocation per radiologist. Patient refused blood draw for blood alcohol and urine testing. He is oriented at this point appears to have capacity to decline further testing. He has a friend who is going to take him home. We will place an ankle stirrup and allow him to be discharged - Vital Signs Vital signs: Temp Pulse Resp BP Pulse Ox 98.6 F 30 H 107/72 97 02/05/20 06:00 02/05/20 06:00 02/05/20 05:44 02/05/20 06:00 - Diagnostic Test Radiology reviewed: Reports reviewed - Negative right ankle per radiologist. Procedures - Immobilization Right Ankle Time completed: 07:08 Pre-Proc Neuro Vasc Exam: Normal Immobilizer type: Ankle stirrup Performed by: PCT Post-Proc Neuro Vasc Exam: Normal Discharge - Discharge Clinical Impression: Sprain of right ankle Qualifiers: Encounter type: initial encounter Involved ligament of ankle: unspecified ligament Qualified Code(s): S93.401A - Sprain of unspecified ligament of right ankle, initial encounter Condition: Stable Disposition: HOME, SELF-CARE Instructions: Ankle Stirrup Splint ([facility]), Ice & Elevation ([facility]) Additional Instructions: Tylenol as needed. Follow-up with your primary care doctor. Referrals: [facility] [Provider Group] - Follow up as needed
[2020-02-05 09:05] VITALS: BP 107/68
== END 2020-02-05 08:10 | disposition home or self-care (01) ==
LOC: ER 05:30
PROC: 2W3QX1Z Immobilization of Right Lower Leg using Splint (ICD-10-PCS; principal; 2020-02-05)
DX: S93.401A Sprain of unspecified ligament of right ankle, initial encounter (principal); X50.1XXA Overexertion from prolonged static or awkward postures, initial encounter; F17.200 Nicotine dependence, unspecified, uncomplicated; F19.10 Other psychoactive substance abuse, uncomplicated; F12.10 Cannabis abuse, uncomplicated; F11.10 Opioid abuse, uncomplicated
CPT/HCPCS: 99283

== ENCOUNTER 2020-03-20 20:18 | Emergency (ER) | payer SELFPAY ==
--- NOTE | 2020-03-20 21:43 | ER Document Report ---
ED Medical Screen (RME) - General Chief Complaint: Abscess Stated Complaint: RIGHT ARMPIT SWOLLEN Time Seen by Provider: 03/20/20 21:37 Mode of Arrival: Ambulatory Information source: Patient Notes: 24-year-old to ED for a very large abscess to the right sella. He states it started as a little bump 6 days ago and now it is a very large abscess. He states he was seen recently for endocarditis and shipped out to [facility]. He states he does smoke a pack a day does not drink and snorts heroin last time was yesterday. He states he does not use any injectable drugs. I have greeted and performed a rapid initial assessment of this patient. A comprehensive ED assessment and evaluation of the patient, analysis of test results and completion of medical decision making process will be conducted by an additional ED providers. TRAVEL OUTSIDE OF THE [place] IN LAST 30 DAYS: No - Related Data Allergies/Adverse Reactions: No Known Allergies Allergy (Verified 07/06/16 18:49) Past Medical History - Social History Chew tobacco use (# tins/day): No Frequency of alcohol use: Occasional Drug Abuse: Heroin Renal/ Medical History: Denies: Hx Peritoneal Dialysis Psychiatric Medical History: Reports: Hx Depression Physical Exam - Vital signs Vitals: Temp Pulse Resp BP Pulse Ox 99.0 F 106 H 20 110/74 100 03/20/20 20:50 03/20/20 20:50 03/20/20 20:50 03/20/20 20:50 03/20/20 20:50 Course - Vital Signs Vital signs: Temp Pulse Resp BP Pulse Ox 99.0 F 106 H 20 110/74 100 03/20/20 20:50 03/20/20 20:50 03/20/20 20:50 03/20/20 20:50 03/20/20 20:50
[2020-03-20 22:29] LABS: APPEARANCE,URINE CLEAR; BILIRUBIN,URINE NEGATIVE (NEGATIVE); COLOR,URINE AMBER; GLUCOSE, URINE NEGATIVE (NEGATIVE); KETONES,URINE NEGATIVE (NEGATIVE); LEUKOCYTE ESTERASE,URINE NEGATIVE (NEGATIVE); NITRITE,URINE NEGATIVE (NEGATIVE); PROTEIN,URINE NEGATIVE (NEGATIVE); URINE SPECIFIC GRAVITY 1.019
[2020-03-20 22:37] LABS: ABSOLUTE BASOPHILS # (AUTO) 0.1 10^3/uL (0.0-0.2); ABSOLUTE EOSINOPHILS # (AUTO) 0.2 10^3/uL (0.0-0.6); ABSOLUTE LYMPHOCYTES (AUTO) 3.5 10^3/uL (0.5-4.7); ABSOLUTE MONOCYTES (AUTO) 2.1 10^3/uL (0.1-1.4); ABSOLUTE NEUT (AUTO) 13.5 10^3/uL (1.7-8.2); BASOPHILS % (AUTO) 0.7 % (0-2); HEMATOCRIT 36.7 % (37.9-51.0); HEMOGLOBIN 12.5 g/dL (13.5-17.0); LYMPHOCYTES % (AUTO) 18.1 % (13-45); MEAN CORPUSCULAR HEMOGLOBIN 28.3 pg (27.0-33.4); MEAN CORPUSCULAR HGB CONC 34.2 g/dL (32.0-36.0); MEAN CORPUSCULAR VOLUME 83 fl (80-97); MONOCYTES % (AUTO) 10.9 % (3-13); PLATELET COUNT 439 10^3/uL (150-450); RED BLOOD COUNT 4.43 10^6/uL (4.35-5.55); RED CELL DISTRIBUTION WIDTH 15.1 % (11.5-14.0); SEGMENTED NEUTROPHILS % (AUTO) 69.3 % (42-78); TOTAL CELLS COUNTED % (AUTO) 100 %; WHITE BLOOD COUNT 19.5 10^3/uL (4.0-10.5)
[2020-03-20 22:45] LABS: URINE AMPHETAMINES SCREEN NEGATIVE; URINE BARBITURATES SCREEN NEGATIVE; URINE BENZODIAZEPINES SCREEN NEGATIVE; URINE COCAINE SCREEN NEGATIVE; URINE METHADONE SCREEN NEGATIVE; URINE PHENCYCLIDINE SCREEN NEGATIVE
[2020-03-20 22:46] LABS: URINE MARIJUANA (THC) SCREEN UNCONFIRMED POSITIVE
[2020-03-20 22:56] LABS: ALBUMIN 3.6 g/dL (3.5-5.0); ALKALINE PHOSPHATASE 116 U/L (38-126); ANION GAP 11 (5-19); ASPARTATE AMINO TRANSFERASE 16 U/L (17-59); BILIRUBIN,DIRECT 0.4 mg/dL (0.0-0.4); BILIRUBIN,TOTAL 0.4 mg/dL (0.2-1.3); BLOOD UREA NITROGEN 7 mg/dL (7-20); CALCIUM 9.1 mg/dL (8.4-10.2); CARBON DIOXIDE 31 mmol/L (22-30); CHLORIDE 93 mmol/L (98-107); GLUCOSE 111 mg/dL (75-110); POTASSIUM 3.5 mmol/L (3.6-5.0)
[2020-03-21] MEDS ORDERED: ETOMIDATE INJ/PF 20 MG/10 ML SDV IV ONE (00:02)
[2020-03-21] MEDS ORDERED: MEROPENEM 1 GM VIAL IV ONE (00:02)
[2020-03-21] MEDS ORDERED: VANCOMYCIN HCL INJ 1000 MG VIAL IV ONE (00:03)
--- NOTE | 2020-03-21 01:25 | ER Document Report ---
Entered by CHIRAG CANALES SCRIBE 03/20/20 7037 Acting as scribe for:ROSE MARIE WEBER DO ED General - General Chief Complaint: Abscess Stated Complaint: RIGHT ARMPIT SWOLLEN Time Seen by Provider: 03/20/20 21:37 Mode of Arrival: Ambulatory Information source: Patient Notes: This 24 year old male patient presents to the emergency department today with complaints of a abscess to his right axillary region. Patient states he noticed the abscess x6 days ago and it began to drain while waiting in triage in the ED. Denies any fever or other abscesses. Patient reports history of heroin use. Patient states the last time he injected heroin was x1-2 months ago, and last snorted heroin a few days ago. TRAVEL OUTSIDE OF THE [place] IN LAST 30 DAYS: No - Related Data Allergies/Adverse Reactions: No Known Allergies Allergy (Verified 07/06/16 18:49) Past Medical History - General Information source: Patient - Social History Smoking Status: Current Every Day Smoker Cigarette use (# per day): Yes Chew tobacco use (# tins/day): No Frequency of alcohol use: Occasional Drug Abuse: Heroin Lives with: Family Family History: Reviewed & Not Pertinent, Hypertension Patient has homicidal ideation: No - Past Medical History Cardiac Medical History: Reports: Hx Pulmonary Embolism Pulmonary Medical History: Reports: Hx Pneumonia Renal/ Medical History: Denies: Hx Peritoneal Dialysis Psychiatric Medical History: Reports: Hx Depression Review of Systems - Review of Systems Constitutional: See HPI. denies: Fever EENT: No symptoms reported Cardiovascular: No symptoms reported Respiratory: No symptoms reported Gastrointestinal: No symptoms reported Genitourinary: No symptoms reported Male Genitourinary: No symptoms reported Musculoskeletal: No symptoms reported Skin: See HPI, Other - Abscess Hematologic/Lymphatic: No symptoms reported Neurological/Psychological: No symptoms reported -: Yes All other systems reviewed and negative Physical Exam - Vital signs Vitals: Temp Pulse Resp BP Pulse Ox 99.0 F 106 H 20 110/74 100 03/20/20 20:50 03/20/20 20:50 03/20/20 20:50 03/20/20 20:50 03/20/20 20:50 - General Notes: Alert. Appears chronically ill and borderline malnourished. - HEENT Head: Normocephalic, Atraumatic Eyes: Normal Pupils: PERRL - Respiratory Respiratory status: No respiratory distress Chest status: Nontender Breath sounds: Normal - Cardiovascular Rhythm: Regular Heart sounds: Normal auscultation Murmur: No - Abdominal Inspection: Normal Distension: No distension Bowel sounds: Normal Tenderness: Nontender - Extremities General upper extremity: Normal inspection, Normal ROM General lower extremity: Normal inspection, Normal ROM. No: Edema - Neurological Neuro grossly intact: Yes Cognition: Normal Orientation: AAOx4 Bashir Coma Scale Eye Opening: Spontaneous Slick Coma Scale Verbal: Oriented Slick Coma Scale Motor: Obeys Commands Bashir Coma Scale Total: 15 Speech: Normal Sensory: Normal - Psychological Associated symptoms: Normal affect, Normal mood - Skin Skin Temperature: Warm Skin Moisture: Dry Course - Re-evaluation Re-evalutation: 03/21/20 01:21 MDM 24 year old with h/o IVDA - not in months reportedly - is now snorting heroin and has had a abcess that developed in right axilla region. Began draining in waiting room. Abcess was fully drained here after conscious sedation and he tolerated this well. We discussed follow up and he expressed understanding. Conscious sedation note I was present in and directly involved in conscious sedation with total sedation time of 10 minutes. - Vital Signs Vital signs: Temp Pulse Resp BP Pulse Ox 99.0 F 109 H 24 H 121/73 100 03/20/20 20:50 03/21/20 01:24 03/21/20 01:24 03/21/20 01:24 03/21/20 01:24 - Laboratory Result Diagrams: 03/20/20 22:18 03/20/20 22:18 Laboratory results interpreted by me: 03/20/20 03/20/20 03/20/20 20:57 22:18 22:18 WBC 19.5 H Hgb 12.5 L Hct 36.7 L RDW 15.1 H Absolute Neuts (auto) 13.5 H Absolute Monos (auto) 2.1 H Sodium 134.5 L Potassium 3.5 L Chloride 93 L Carbon Dioxide 31 H Glucose 111 H AST 16 L Urine Urobilinogen 4.0 H Urine Ascorbic Acid 20 H - EKG Interpretation by Me EKG shows normal: Sinus rhythm Rate: Tachycardia Rhythm: NSR - Sinus Tachy Nl axis repolarization abnormality without st elevaiton or depression my interpretation. Procedures - Incision and Drainage Right Chest Time completed: 01:00 Type: Complex Blade size: 11 Incision Method: Incision made by scalpel Amount/type of drainage: 20 ml pus Notes: 03/21/20 01:16 After conscious sedation - 15 mg etomidate IV which was given by nursing staff after time out - a large right chest wall abcess was incised with #11 scalpel and loculations were broken with forceps. The wound was irrigated with sterile water copiously and packing was placed. The pt tolerated the procedure well with no apparent complications. Discharge - Discharge Clinical Impression: Abscess, History of conscious sedation Condition: Stable Disposition: HOME, SELF-CARE Instructions: Abscess (OM), Post Incision and Drainage, Post Sedation Instructions ([facility]), Trimethoprim-Sulfa ([facility]) Additional Instructions: Stop using heroin or it may kill you. Take the antibiotics as directed. Return here on Thursday for a recheck. Return sooner for fever increased pain or other concerns. Start the antibiotic 03/22. Take tylenol for pain. Prescriptions: Sulfamethoxazole/Trimethoprim [Bactrim Ds Tablet] 1 each PO BID #28 tablet I personally performed the services described in the documentation, reviewed and edited the documentation which was dictated to the scribe in my presence, and it accurately records my words and actions.
--- NOTE | 2020-03-21 01:38 | EKG REPORT ---
SEVERITY:- ABNORMAL ECG - SINUS TACHYCARDIA PROBABLE RIGHT VENTRICULAR HYPERTROPHY : Confirmed by: Jessica Strickland MD 21-Mar-2020 01:37:43
[2020-03-21] MEDS ORDERED: ACETAMINOPHEN 325 MG TABLET PO ONE (03:48)
[2020-03-21 03:49] VITALS: BP 108/58
== END 2020-03-21 04:09 | disposition home or self-care (01) ==
LOC: ER 20:18
DX: L02.213 Cutaneous abscess of chest wall (principal); F11.10 Opioid abuse, uncomplicated; F17.210 Nicotine dependence, cigarettes, uncomplicated; R00.0 Tachycardia, unspecified
CPT/HCPCS: 93005; 99285; 99152; 96365; 96367; 36415; 87040; 87070; 87205; 83605; 85025; 80053; 81001; 80307; 93010; 10060; J3490; J3370; J2185; 87077